=== PATIENT | female | born 1960 | race Caucasian/White ===

== ENCOUNTER 2023-07-17 11:09 | Inpatient (IN) ==
[2023-07-17 12:12] LABS: Appearance Urine Clear (Clear); Bilirubin Urine Negative (Negative); Blood Urine Negative (Negative); Color Urine Yellow; Glucose Urine UA 3+ (Negative); Ketones Urine 2+ (Negative); Leukocyte Esterase Urine Negative (Negative); Nitrite Urine Negative (Negative); Protein Urine Negative (Negative); Specific Gravity Urine 1.021 (1.000-1.030); Urobilinogen Urine Negative (Negative)
[2023-07-17 12:18] LABS: Basophils # (auto) 0.02 K/uL (0.00-0.20); Basophils % (auto) 0.3 %; Eosinophils # (auto) 0.14 K/uL (0.00-0.50); Eosinophils % (auto) 1.8 %; Hematocrit (blood only) 36.1 % (37.0-47.0); Immature Granulocytes # (auto) 0.02 K/uL (0.01-0.20); Immature Granulocytes % (auto) 0.3 %; Lymphocytes # (auto) 1.27 K/uL (1.20-3.40); Lymphocytes % (auto) 16.4 %; Mean Corpuscular Hemoglobin 30.2 pg (25.0-34.0); Mean Corpuscular Hgb Conc 33.2 g/dL (32.0-36.0); Mean Corpuscular Volume 90.7 fL (80.0-100.0); Mean Platelet Volume 10.1 fL (9.4-12.4); Monocytes # (auto) 0.36 K/uL (0.11-0.59); Monocytes % (auto) 4.6 %; Neutrophils # (auto) 5.94 K/uL (1.40-6.50); Neutrophils % (auto) 76.6 %; Platelet Count 302 K/uL (130-400); RDW Coefficient of Variation 12.2 % (11.5-14.5); Red Blood Count 3.98 M/uL (4.20-5.40); White Blood Count 7.75 K/ul (4.8-10.8)
[2023-07-17] MEDS ORDERED: SODIUM CHLORIDE 0.9% 1,000 ML IV ONE (12:22)
[2023-07-17] MEDS ORDERED: ONDANSETRON INJ 2 MG/ML 2 ML VIAL IV STA (12:22)
[2023-07-17] MEDS ORDERED: MoRPHine SULFATE 4 MG/ML 1 ML CARP\\VIAL IV STA (12:22)
[2023-07-17 12:24] LABS: Alanine Aminotransferase 24 U/L (7-52); Albumin Globulin Ratio 1.2 (0.9-2); Albumin Level 3.9 gm/dl (3.4-5.0); Alkaline Phosphatase 100 U/L (34-104); Anion Gap 7 (3-11); Aspartate Aminotransferase 16 U/L (13-39); BUN Creatinine Ratio 16.4 (10-20); Bilirubin,Total 0.5 mg/dl (0.2-1.0); Blood Urea Nitrogen 9 mg/dl (6-23); Carbon Dioxide 29 mmol/L (21-32); Chloride 103 mmol/L (98-107); Est GFR (African American) 117.3 ml/min; Est GFR (Non-African American) 101.2 ml/min; Globulin 3.3 gm/dl (2.5-4.0); Glucose 246 mg/dl (70-99(Fasting)); Potassium 3.4 mmol/L (3.5-5.1); Sodium 139 mmol/L (136-145); Total Protein 7.2 gm/dl (6.0-8.3)
--- NOTE | 2023-07-17 12:37 | Emergency Department Note ---
Impression & Plan Abdominal pain, Liver laceration, S/P cholecystectomy ED Provider Note NAME: COLIN SHIELDS AGE: 62 SEX: F : 1960 ARRIVES VIA: Walk-In INFORMANT: [Patient] ED PROVIDER(S): [Adan Alonzo MD] CHIEF COMPLAINT: Dr. Referred HISTORY OF PRESENT ILLNESS: The patient is a 62-year-old female who had laparoscopic gallbladder surgery performed at [facility] last week. She was discharged 3 days ago. The patient has had ongoing abdominal pain since discharge. She is not using anything for pain currently. She has a drain in place. The patient saw a doctor today and was referred to the ER for a workup. The patient has an appointment with a physician tomorrow to have the wound checked. She is to have the drain out sometime later this week. There has been no cough or congestion. No shortness of breath. No fever. No diarrhea or urinary complaints. She states that she would like her dressing changed as the dressing does seem soaked. PMHx/PSHx/Social Hx: See Below PHYSICAL EXAM: GENERAL: Patient is in no acute distress. HEENT: No acute trauma, normocephalic atraumatic, mucous membranes moist, no nasal congestion. NECK: No stridor, no adenopathy, no meningismus, trachea is midline. LUNGS: Clear to auscultation bilaterally, no wheeze, no rhonchi, breath sounds equal. HEART: Without murmurs gallops or rubs, regular rate and rhythm. ABDOMEN: Soft, mildly diffusely tender, no abdominal distention. There is a NELLIE drain in the right upper quadrant with a dressing surrounding the surgical site. The dressing does appear soaked with some serosanguineous fluid. The drain has serosanguineous fluid in the bulb. EXTREMITIES: No cyanosis, full range of motion of all the joints without pain or difficulty. NEUROLOGIC: Oriented x 3, no acute motor or sensory deficits, no focal weakness. SKIN: No jaundice, no diaphoresis. DIFFERENTIAL DIAGNOSIS: Abscess, hematoma, postop pain, cellulitis, UTI, among others. EMERGENCY DEPARTMENT PROCEDURES: MEDICAL DECISION MAKING: There is no leukocytosis or concerning anemia. There is a normal platelet count. Potassium is slightly low but not in need of emergent correction. No renal failure. No concerning liver enzyme elevation. No evidence for pancreatitis. Urinalysis does show some ketones consistent with dehydration, no hematuria, no infection. Abdominal and pelvis CT shows findings consistent with recent gallbladder surgery. A grade 3 liver laceration was also noted. There was some hydronephrosis on the left. The patient presents with pain in the area of her surgical site. She was not discharged on any pain medication. On workup, she was found to have a liver laceration, likely the laceration occurred during the surgical procedure as there has been no trauma since the surgery. I spoke with our general surgeon, hospitalization, observation was recommended. There is no indication for acute surgical intervention. I spoke with the patient and case management, the on-call hospitalist was consulted. Certainly, the liver laceration could be causing her more significant postsurgical pain. During the ED stay, the patient was given IV saline 1 L. She was given IV morphine and IV Zofran. She is more comfortable. Prior/Outside records/notes reviewed: [facility] surgical note from 07/12/2023 describing her operation for acute cholecystitis. Imaging/x-ray results per my interpretation: Chronic Medical/Social conditions affecting care: Care/Management discussed with: General surgery-Dr. Armas. Case management and the on-call hospitalist. Level of care consideration(s): After review of the information above and other included data: --I believe the patient requires escalation of care to admission DISPOSITION: Admit to surgical consult. Past Med/Surg History Medical History History of nephrolithiasis Genital herpes Opioid dependence on agonist therapy Anxiety MDD (major depressive disorder) DM II (diabetes mellitus, type II), controlled Surgical History (Updated 07/17/23 @ 15:33 by Adan Alonzo MD) H/O hemorrhoidectomy S/P laparoscopic cholecystectomy Family History (Updated 07/17/23 @ 15:06 by Kat Hudson PA-C) Mother Diabetes Father Diabetes Social History Smoking Status: Never smoker Preferred Language: Chinese Feels Safe at Home: Yes Allergies Allergies Allergy/AdvReac Type Severity Reaction Status Date / Time No Known Allergies Allergy Unverified 07/17/23 14:12 Home Meds Home Medications Medication Instructions Recorded Confirmed buprenorphine HCl 8 mg sublingual 8 mg sublingual TID 07/17/23 07/17/23 tablet ibuprofen 800 mg tablet 800 mg PO TID PRN Pain 07/17/23 07/17/23 insulin aspart U-100 100 unit/mL 0 unit subcut TID 07/17/23 07/17/23 (3 mL) subcutaneous pen insulin glargine 100 unit/mL (3 20 unit subcut HS 07/17/23 07/17/23 mL) subcutaneous pen tizanidine 2 mg tablet 2 mg PO TID 07/17/23 07/17/23 Results & Data (ED) Vital Signs Vital Signs - 24 hr 07/17/23 11:16 07/17/23 11:58 07/17/23 14:08 Temperature 36.7 C Temperature Source Oral Pulse Rate 91 H Pulse Rate [Apical] 87 85 Respiratory Rate 17 20 20 Respiratory Effort / Characteristics Non-Labored Spontaneous Non-Labored Non-Labored Respiratory Depth Normal Normal Normal Respiratory Pattern Regular Blood Pressure 180/80 H Blood Pressure [Right Arm] 198/94 H 182/97 H Blood Pressure Mean 113 Blood Pressure Mean [Right Arm] 128 125 Blood Pressure Position Sitting Pulse Oximetry 98 99 99 Oxygen Delivery Method Room Air Room Air Room Air Sepsis Recent Fever Within 48 Hours No Sepsis New/Unexplained Change in Mental Status N/A Sepsis Action Taken by Nursing No Action Required Home Medications Current Medication List: was personally reviewed by me Laboratory Data Attestation: I reviewed the patient's lab results. 07/17/23 11:39 07/17/23 11:39 Lab Results 07/17/23 07/17/23 Range/Units 11:39 14:07 WBC 7.75 (4.8-10.8) K/ul RBC 3.98 L (4.20-5.40) M/uL Hgb 12.0 (12.0-16.0) g/dl Hct 36.1 L (37.0-47.0) % MCV 90.7 (80.0-100.0) fL MCH 30.2 (25.0-34.0) pg MCHC 33.2 (32.0-36.0) g/dL RDW Std Deviation 41.0 (36.4-46.3) fL RDW Coeff of Luciano 12.2 (11.5-14.5) % Plt Count 302 (130-400) K/uL MPV 10.1 (9.4-12.4) fL Immature Gran % (Auto) 0.3 % Neut % (Auto) 76.6 % Lymph % (Auto) 16.4 % [place] % (Auto) 4.6 % Eos % (Auto) 1.8 % Baso % (Auto) 0.3 % Neut # (Auto) 5.94 (1.40-6.50) K/uL Lymph # (Auto) 1.27 (1.20-3.40) K/uL [place] # (Auto) 0.36 (0.11-0.59) K/uL Eos # (Auto) 0.14 (0.00-0.50) K/uL Baso # (Auto) 0.02 (0.00-0.20) K/uL Immature Gran # (Auto) 0.02 (0.01-0.20) K/uL Sodium 139 (136-145) mmol/L Potassium 3.4 L (3.5-5.1) mmol/L Chloride 103 (98-107) mmol/L Carbon Dioxide 29 (21-32) mmol/L Anion Gap 7 (3-11) BUN 9 (6-23) mg/dl Creatinine 0.55 L (0.6-1.2) mg/dl Est Cr Clr Drug Dosing Not Reportable Est GFR ( Amer) 117.3 ml/min Est GFR (Non-Af Amer) 101.2 ml/min BUN/Creatinine Ratio 16.4 (10-20) Glucose 246 H (70-99(Fasting)) mg/dl POC Glucose 218 H (70-99) mg/dl Calcium 9.0 (8.6-10.3) mg/dl Total Bilirubin 0.5 (0.2-1.0) mg/dl AST 16 (13-39) U/L ALT 24 (7-52) U/L Alkaline Phosphatase 100 (34-104) U/L Total Protein 7.2 (6.0-8.3) gm/dl Albumin 3.9 (3.4-5.0) gm/dl Globulin 3.3 (2.5-4.0) gm/dl Albumin/Globulin Ratio 1.2 (0.9-2) Lipase < 3 L (11-82) U/L Urine Color Yellow Urine Appearance Clear (Clear) Urine pH 7.0 (4.5-7.5) Ur Specific [place] 1.021 (1.000-1.030) Urine Protein Negative (Negative) Urine Glucose (UA) 3+ H (Negative) Urine Ketones 2+ H (Negative) Urine Blood Negative (Negative) Urine Nitrite Negative (Negative) Urine Bilirubin Negative (Negative) Urine Urobilinogen Negative (Negative) Ur Leukocyte Esterase Negative (Negative) Administered Medications Discontinued Medications Sodium Chloride (Nss) 1,000 mls @ 999 mls/hr IV .Q1H1M ONE Stop: 07/17/23 13:22 Last Infusion: 07/17/23 13:51 Dose: Infused Documented By: Admin: 07/17/23 12:45 Dose: 999 mls/hr Documented By: ALBERT Ioversol (Optiray 320 500ml) 92 ml IV ONCE ONE Stop: 07/17/23 12:52 Last Admin: 07/17/23 12:51 Dose: 92 ml Documented By: ROSY Morphine Sulfate (Morphine Sulfate 4 Mg/Ml 1 Ml Carp\Vial) 4 mg IV NOW STA Stop: 07/17/23 12:23 Last Admin: 07/17/23 12:44 Dose: 4 mg Documented By: ALBERT Ondansetron HCl (Ondansetron Inj 2 Mg/Ml 2 Ml Vial) 4 mg IV NOW STA Stop: 07/17/23 12:23 Last Admin: 07/17/23 12:44 Dose: 4 mg Documented By: ALBERT Imaging Data Radiologist's Impression: Abdomen/Pelvis CT 07/17/23 12:[address] WITH IV CONTRAST CT DOSE: 666.06 mGy.cm HISTORY: Acute right upper quadrant abdominal pain gb surg--increased pain TECHNIQUE: Multiaxial CT images of the abdomen and pelvis were performed following the IV administration of 92 cc of Optiray, A dose lowering technique was utilized adhering to the principles of ALARA. COMPARISON STUDY: None. FINDINGS: Coronary arterial calcifications. Clear lung bases. Small amount of pneumoperitoneum with subcutaneous emphysema of the anterior abdominal wall with additional deep tissue air within the left rectus sheath. Unremarkable spleen, and adrenal glands. 1.3 cm peripherally calcified splenic artery aneurysm. Atrophic pancreas. Mild intrahepatic and extrahepatic biliary ductal prominence. Cholecystectomy with surgical clips in the elvin hepatis. Ill-defined focus of air and fluid within the elvin hepatis measures 3.5 cm on image 101. There is trace free pelvic fluid with additional trace fluid tracking along the right pericolic gutter. There is a 5 cm linear focus of decreased attenuation within the inferior right hepatic lobe extending towards the elvin hepatis. There are a few nonobstructing calculi of the kidneys measure up to approximately 3 mm bilaterally. 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 Mild to moderate left-sided hydronephrosis with transition narrowing at the ureteropelvic junction. The urinary bladder wall thickening with partial distention. Vascular calcifications of the uterus. Small amount of free pelvic fluid. Atherosclerosis of the aorta without aneurysm. Small hiatal hernia. Moderate colonic fecal retention. Surgical drainage catheter is noted with distal tip within the left mid abdomen. Noninflamed appendix. Lai of the anterior abdominal wall. Small fat filled umbilical hernia. There is no acute fracture identified. IMPRESSION: 1. Postoperative changes compatible with recent cholecystectomy with trace pneumoperitoneum. 2. Small amount of air and fluid within the elvin hepatis is likely an expected postoperative finding. No drainable postoperative fluid collection. 3. 5 cm acute laceration (grade III injury) of the inferior right hepatic lobe with extension into the elvin hepatis. Trace adjacent hemorrhage tracks along the right pericolic gutter. 4. No bowel obstruction. 5. Moderate constipation. 6. Bilateral nephrolithiasis. 7. Left hydronephrosis with possible UPJ obstruction. ACT 112: Negative or not required by law. The above report was generated using voice recognition software. It may contain grammatical, syntax or spelling errors. Electronically signed by: Yasmany Pena M.D. 07/17/2023 1:48 PM Discharge Plan Visit Data Chief Complaint: Referred by Doctor Stated Complaint: PAIN AND BLEEDING AFTER SURGERY ED Provider: Adan Alonzo Discharge Problem: Abdominal pain, Liver laceration, S/P cholecystectomy Patient Disposition: Admitted As Inpatient Condition: Fair Forms Stand Alone Forms: [employer] Prescriptions Prescriptions: No Action tizanidine 2 mg tablet 2 mg PO TID ibuprofen 800 mg tablet 800 mg PO TID PRN (Reason: Pain) buprenorphine HCl 8 mg tablet, sublingual 8 mg SUBLINGUAL TID insulin aspart U-100 100 unit/mL (3 mL) insulin pen 0 unit SUBCUT TID Rx Instructions: Inject 8 units under the skin in the morning, 8 units at lunch and 10 units at supper insulin glargine 100 unit/mL (3 mL) insulin pen 20 unit SUBCUT HS Referrals Referrals: PCP,NO [Physician] - Discharge Problem: Abdominal pain Qualifiers: Abdominal location: generalized Qualified Code(s): R10.84 - Generalized abdominal pain Liver laceration Qualifiers: Encounter type: initial encounter Qualified Code(s): S36.113A - Laceration of liver, unspecified degree, initial encounter
[2023-07-17] MEDS ORDERED: OPTIRAY 320 500ml IV ONE (12:51)
[2023-07-17 12:58] LABS: Lipase < 3 U/L (11-82)
--- NOTE | 2023-07-17 13:51 | CT Scan Report ---
ABDOMEN AND PELVIS CT WITH IV CONTRAST CT DOSE: 666.06 mGy.cm HISTORY: Acute right upper quadrant abdominal pain gb surg--increased pain TECHNIQUE: Multiaxial CT images of the abdomen and pelvis were performed following the IV administrat ion of 92 cc of Optiray, A dose lowering technique was utilized adhering to the principles of ALARA. COMPARISON STUDY: None. FINDINGS: Coronary arterial calcifications. Clear lung bases. Small amount of pneumoperitoneum with subcutaneou s emphysema of the anterior abdominal wall with additional deep tissue air within the left rectus she ath. Unremarkable spleen, and adrenal glands. 1.3 cm peripherally calcified splenic artery aneurysm. Atrop hic pancreas. Mild intrahepatic and extrahepatic biliary ductal prominence. Cholecystectomy with surg ical clips in the elvin hepatis. Ill-defined focus of air and fluid within the elvin hepatis measures 3.5 cm on image 101. There is trace free pelvic fluid with additional trace fluid tracking along the right pericolic gutter. There is a 5 cm linear focus of decreased attenuation within the inferior ri ght hepatic lobe extending towards the elvin hepatis. There are a few nonobstructing calculi of the kidneys measure up to approximately 3 mm bilaterally. 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 Mild to moderate left-sided hydronephrosis with transition narrowing at the ureteropelvic j unction. The urinary bladder wall thickening with partial distention. Vascular calcifications of the uterus. Small amount of free pelvic fluid. Atherosclerosis of the aorta without aneurysm. Small hiatal hernia. Moderate colonic fecal retention. Surgical drainage catheter is noted with dista l tip within the left mid abdomen. Noninflamed appendix. Lai of the anterior abdominal wall. Smal l fat filled umbilical hernia. There is no acute fracture identified. IMPRESSION: 1. Postoperative changes compatible with recent cholecystectomy with trace pneumoperitoneum. 2. Small amount of air and fluid within the elvin hepatis is likely an expected postoperative finding . No drainable postoperative fluid collection. 3. 5 cm acute laceration (grade III injury) of the inferior right hepatic lobe with extension into th e elvin hepatis. Trace adjacent hemorrhage tracks along the right pericolic gutter. 4. No bowel obstruction. 5. Moderate constipation. 6. Bilateral nephrolithiasis. 7. Left hydronephrosis with possible UPJ obstruction. ACT 112: Negative or not required by law. The above report was generated using voice recognition software. It may contain grammatical, syntax o r spelling errors. Electronically signed by: Yasmany Pena M.D. 07/17/2023 1:48 PM
--- NOTE | 2023-07-17 15:20 | History & Physical Report ---
Date of Service July 17, 2023 Assessment & Plan (1) Abdominal pain: (2) Liver laceration: Plan: - Admit to med surg tele - General surgery consultation - S/p lap cholecystectomy on 07/12/23, she was treated with IV Zosyn during preoperative timing, likely liver laceration sustained during surgery, no falls, trauma or other injury since surgical procedure - CT abd/pelvis reviewed personally -- findings as per radiology below Postoperative changes compatible with recent cholecystectomy with trace pneumoperitoneum. Small amount of air and fluid within the elvin hepatis is likely an expected postoperative finding. No drainable postoperative fluid collection. 5 cm acute laceration (grade III injury) of the inferior right hepatic lobe with extension into the elvin hepatis. Trace adjacent hemorrhage tracks along the right pericolic gutter. No bowel obstruction. Moderate constipation. Bilateral nephrolithiasis. Left hydronephrosis with possible UPJ obstruction. - Per discussion, she is ok to stay here in the hospital per gen surg - No acute intervention - Hgb is stable at 12, monitor with am labs - Pain control with medication, hydrate with small amount of fluids - Bowel regimen for moderate constipation seen on CT abd/pelvis - Left hydronephrosis with possible UPJ obstruction is noted within the body of report to be a narrowing of the UPJ, no obstructing kidney stone, UA is clear, no white count, afebrile (3) Hypokalemia: Plan: -Potassium is slightly low at 3.4, replace with p.o. 20 meq (4) Opioid dependence on agonist therapy: Plan: - Patient is on buprenorphine 8 mg TID - Will need to confirm with pharmacy to continue here (5) DM II (diabetes mellitus, type II), controlled: Plan: -ISS with Accu-Cheks [facility], uses Lantus 20 units at bedtime, insulin aspart 8 U with breakfast, lunch and 10 units with dinner -There is no A1c in [facility] outpatient chart available for review, will check with a.m. labs (6) MDD (major depressive disorder): (7) Anxiety: Plan: - Continue Effexor 112.5 mg, allow clonazepam 0.5 mg TID - Follow with a counselor every other week, does not have a psychiatrist DVT PPx: teds, scds Lines: 2 PIV FEN/GI: Allow DM diet CODE: Full code Dispo: From home, likely to remain in the hospital x 1-2 days. History of Present Illness Chief Complaint: Abdominal Pain Primary Care Provider: Jacquelyn Mckinney MD This is a 62-year-old female with PMHx of opioid dependence on Subutex, anxiety/depression on clonazepam, DM type II who presented to [facility] on 07/11 for 2 days of upper abdominal pain. She was found to have acute cholecystitis. Secondary to this she was transferred to [facility] and she underwent laparoscopic cholecystectomy on 07/12/[address] Medrano. Patient tolerated the procedure well. She was discharged from facility on 07/14/2023. Since discharge she has had increasing abdominal pain and was referred to our hospital by PCP. She was scheduled to have her NELLIE drain out next week. Here on CT abdomen acute imaging finds a 5 cm acute liver laceration with extension into the elvin hepatis. Patient reports that she is very unsatisfied with the care she received at the previous hospital in regards to being sent out of the hospital 2 days after surgery and having worsening pain. She lives at home by herself and has had difficulty with performing basic things. She has a NELLIE drain out of the RLQ whi ch she has been emptying herself, and maintaining without difficulty. She states that there is serosanguineous fluid, minimal bloody outs. She is moving her bowels, last was 2 days ago, uses a laxative at home regularly. Patient has been tolerating p.o. intake and has been urinating without any issues. She denies any fevers, chills or sweats. Social Hx: Patient has been on Subutex for approximately 5 years, prior to that she was on chronic pain medication for pain associated with a fall she sustained backwards down a set of stairs and injured her shoulder. Patient denies any IV drug abu se, smoking, alcohol use or marijuana use. She has had 6 children, and one of her daughters due to suicide about 5 years ago. Allergies Allergy/AdvReac Type Severity Reaction Status Date / Time No Known Allergies Allergy Unverified 07/17/23 14:12 Home Medications Medication Instructions Recorded Confirmed Type buprenorphine HCl 8 mg sublingual 8 mg sublingual TID 07/17/23 07/17/23 History tablet clonazepam 0.5 mg tablet 0.5 mg PO TID PRN Anxiety 07/17/23 07/17/23 History ibuprofen 800 mg tablet 800 mg PO TID PRN Pain 07/17/23 07/17/23 History insulin aspart U-100 100 unit/mL 8 unit subcut TID 07/17/23 07/17/23 History (3 mL) subcutaneous pen insulin glargine 100 unit/mL (3 20 unit subcut HS 07/17/23 07/17/23 History mL) subcutaneous pen tizanidine 2 mg tablet 2 mg PO TID 07/17/23 07/17/23 History Past Med/Surg History Medical History History of nephrolithiasis Genital herpes Opioid dependence on agonist therapy Anxiety MDD (major depressive disorder) DM II (diabetes mellitus, type II), controlled Surgical History H/O hemorrhoidectomy S/P laparoscopic cholecystectomy Family History Mother Diabetes Father Diabetes Social History Smoking Status: Never smoker Preferred Language: Comoran Feels Safe at Home: Yes Review of Systems Review of Systems: Constitutional: No fever, sweats or chills Eyes: No diplopia, no worsening or blurred vision ENT: normal hearing, no trouble swallowing Respiratory: No cough, sputum, dyspnea at rest or on exertion Cardiovascular: No chest pain, tightness or palpitations Abdomen: + Pain as per HPI, no nausea, vomiting, diarrhea , + hx of constipation and uses laxative Musculoskeletal: No joint pain, calf pain, swelling Neurologic: No weakness, numbness/tingling, or balance problems Psychiatric: No anxiety or depression Skin: No rash or itch Physical Exam Physical Exam: General: awake, alert, no apparent distress, anxious at times Head: Normocephalic, atraumatic ENT: PERRL, EOMI, no pharyngeal exudate, mucous membranes moist Chest: Clear to auscultation, on room air, no adventitious breath sounds Cardiac: Regular rate and rhythm, no murmur, no JVD, normal peripheral pulses, good capillary refill Abdominal: NABS x 4 quadrants, soft, + NELLIE drain in RLQ with serosanguineous outs, laparoscopic incisions healing well, no surrounding erythema, nondistended, nontender to palpation, no rebound or guarding Extremities: Normal inspection, no peripheral edema or erythema, calfs nontender to palpation Psych: Anxious mood and tearful affect at times Neuro: AAO x 3, strength intact bilaterally and rated 5/5, no motor deficits, speech is clear, no peripheral sensory deficits Results & Data Results & Data Vital Signs (Past 12 Hours) Vital Signs Temp Pulse Pulse Resp BP BP Pulse Ox 07/17/23 14:08 85 20 182/97 H 99 07/17/23 11:58 87 20 198/94 H 99 07/17/23 11:16 36.7 C 91 H 17 180/80 H 98 O2 Del Method 07/17/23 14:08 Room Air 07/17/23 11:58 Room Air 07/17/23 11:16 Room Air Laboratory Results 07/17/23 07/17/23 14:07 11:39 WBC 7.75 RBC 3.98 L Hgb 12.0 Hct 36.1 L MCV 90.7 MCH 30.2 MCHC 33.2 RDW Std Deviation 41.0 RDW Coeff of Luciano 12.2 Plt Count 302 MPV 10.1 Immature Gran % (Auto) 0.3 Neut % (Auto) 76.6 Lymph % (Auto) 16.4 [place] % (Auto) 4.6 Eos % (Auto) 1.8 Baso % (Auto) 0.3 Neut # (Auto) 5.94 Lymph # (Auto) 1.27 [place] # (Auto) 0.36 Eos # (Auto) 0.14 Baso # (Auto) 0.02 Immature Gran # (Auto) 0.02 Sodium 139 Potassium 3.4 L Chloride 103 Carbon Dioxide 29 Anion Gap 7 BUN 9 Creatinine 0.55 L Est Cr Clr Drug Dosing Not Reportable Est GFR ( Amer) 117.3 Est GFR (Non-Af Amer) 101.2 BUN/Creatinine Ratio 16.4 Glucose 246 H POC Glucose 218 H Calcium 9.0 Total Bilirubin 0.5 AST 16 ALT 24 Alkaline Phosphatase 100 Total Protein 7.2 Albumin 3.9 Globulin 3.3 Albumin/Globulin Ratio 1.2 Lipase < 3 L Urine Color Yellow Urine Appearance Clear Urine pH 7.0 Ur Specific [place] 1.021 Urine Protein Negative Urine Glucose (UA) 3+ H Urine Ketones 2+ H Urine Blood Negative Urine Nitrite Negative Urine Bilirubin Negative Urine Urobilinogen Negative Ur Leukocyte Esterase Negative Diagnostic Findings Abdomen/Pelvis CT 07/17/23 12:[address] WITH IV CONTRAST CT DOSE: 666.06 mGy.cm HISTORY: Acute right upper quadrant abdominal pain gb surg--increased pain TECHNIQUE: Multiaxial CT images of the abdomen and pelvis were performed following the IV administration of 92 cc of Optiray, A dose lowering technique was utilized adhering to the principles of ALARA. COMPARISON STUDY: None. FINDINGS: Coronary arterial calcifications. Clear lung bases. Small amount of pneumoperitoneum with subcutaneous emphysema of the anterior abdominal wall with additional deep tissue air within the left rectus sheath. Unremarkable spleen, and adrenal glands. 1.3 cm peripherally calcified splenic artery aneurysm. Atrophic pancreas. Mild intrahepatic and extrahepatic biliary ductal prominence. Cholecystectomy with surgical clips in the elvin hepatis. Ill-defined focus of air and fluid within the elvin hepatis measures 3.5 cm on image 101. There is trace free pelvic fluid with additional trace fluid tracking along the right pericolic gutter. There is a 5 cm linear focus of decreased attenuation within the inferior right hepatic lobe extending towards the elvin hepatis. There are a few nonobstructing calculi of the kidneys measure up to approximately 3 mm bilaterally. 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 Mild to moderate left-sided hydronephrosis with transition narrowing at the ureteropelvic junction. The urinary bladder wall thickening with partial distention. Vascular calcifications of the uterus. Small amount of free pelvic fluid. Atherosclerosis of the aorta without aneurysm. Small hiatal hernia. Moderate colonic fecal retention. Surgical drainage catheter is noted with distal tip within the left mid abdomen. Noninflamed appendix. Lai of the anterior abdominal wall. Small fat filled umbilical hernia. There is no acute fracture identified. IMPRESSION: 1. Postoperative changes compatible with recent cholecystectomy with trace pneumoperitoneum. 2. Small amount of air and fluid within the elvin hepatis is likely an expected postoperative finding. No drainable postoperative fluid collection. 3. 5 cm acute laceration (grade III injury) of the inferior right hepatic lobe with extension into the elvin hepatis. Trace adjacent hemorrhage tracks along the right pericolic gutter. 4. No bowel obstruction. 5. Moderate constipation. 6. Bilateral nephrolithiasis. 7. Left hydronephrosis with possible UPJ obstruction. ACT 112: Negative or not required by law. The above report was generated using voice recognition software. It may contain grammatical, syntax or spelling errors. Electronically signed by: Yasmany Pena M.D. 07/17/2023 1:48 PM Code Status & VTE Plan Code Status Full code Supervising Physician Co-Signing Physician Notes seen and examined along side Physician assistant baseball coach reviewed findings Patient agreeable for admission no acute intervention as per gen surgery. reviewed ct abdomen : no bowel perforation will continue to moniter
[2023-07-17] MEDS ORDERED: HYDROmorphone INJ 0.5 MG/0.5 ML SYR IV STA (15:36)
[2023-07-17] MEDS ORDERED: bisacodyL 5 MG TABEC PO ONE (15:39)
[2023-07-17] MEDS ORDERED: POLYETHYLENE (MIRALAX) 17 GM PACK PO ONE (15:43)
[2023-07-17] MEDS ORDERED: POTASSIUM CHLORIDE CRTAB 20 MEQ TABCR PO STA (16:08)
--- NOTE | 2023-07-17 16:08 | Surgery Consultation ---
Date of Consultation July 17, 2023 Assessment & Plan (1) S/P cholecystectomy: (2) Liver laceration: Plan 62-year-old woman 5 days status post laparoscopic cholecystectomy for acute cholecystitis at [facility] presents with a liver laceration, grade 3. Hemoglobin/hematocrit are low normal. This is most likely from the surgery itself. She will be admitted to the hospitalist service placed on IV fluids and we will monitor her labs. If her labs remain stable, she may be discharged tomorrow to follow-up with her surgeon as an outpatient. If her pain worsens or persists despite pain medication, she may require HIDA scan for rule out of leak. Will continue to follow while she is in the hospital. History of Present Illness Reason for Consultation: Liver laceration status post cholecystectomy Requesting Physician: Adan Alonzo MD Attending Physician: Adan Alonzo MD History of Present Illness 62-year-old woman presents to the emergency department with upper abdominal pain. She underwent laparoscopic cholecystectomy for acute cholecystitis at [facility] 5 days ago. She has been having significant pain at home and came to the hospital because it worsened. She denies nausea or vomiting. She has been eating well. She denies fevers or chills. She has a drain in place. Allergies Allergy/AdvReac Type Severity Reaction Status Date / Time No Known Allergies Allergy Unverified 07/17/23 14:12 Home Medications Medication Instructions Recorded Confirmed Type buprenorphine HCl 8 mg sublingual 8 mg sublingual TID 07/17/23 07/17/23 History tablet clonazepam 0.5 mg tablet 0.5 mg PO TID PRN Anxiety 07/17/23 07/17/23 History ibuprofen 800 mg tablet 800 mg PO TID PRN Pain 07/17/23 07/17/23 History insulin aspart U-100 100 unit/mL 8 unit subcut TID 07/17/23 07/17/23 History (3 mL) subcutaneous pen insulin glargine 100 unit/mL (3 20 unit subcut HS 07/17/23 07/17/23 History mL) subcutaneous pen tizanidine 2 mg tablet 2 mg PO TID 07/17/23 07/17/23 History Patient History Medical History History of nephrolithiasis Genital herpes Opioid dependence on agonist therapy Anxiety MDD (major depressive disorder) DM II (diabetes mellitus, type II), controlled Surgical History H/O hemorrhoidectomy S/P laparoscopic cholecystectomy Family History Mother Diabetes Father Diabetes Social History Smoking Status: Never smoker Preferred Language: Colombian Feels Safe at Home: Yes Review of Systems Review of Systems: All systems reviewed & are unremarkable except as noted in HPI & below Physical Exam Constitutional: WD/WN, vitals as above Eyes: PERRL, conjunctivae normal, anicteric sclerae Neck: trachea midline, no thyromegaly Respiratory: normal respiratory effort; no respiratory distress and no labored breathing Cardiovascular: Rate/Rhythm: regular rate and regular rhythm Gastrointestinal (Abdomen): Inspection/Auscultation: abdomen normal to inspection; abdomen not distended Percussion/Palpation: + abdomen tender (Diffuse upper abdomen) and abdomen soft; no guarding and abdomen not rigid Skin: no rashes, warm and dry Psychiatric: A+Ox3, euthymic affect Results & Data Vital Signs (Past 12 Hours) Vital Signs Temp Pulse Pulse Resp BP BP Pulse Ox 07/17/23 14:08 85 20 182/97 H 99 07/17/23 11:58 87 20 198/94 H 99 07/17/23 11:16 36.7 C 91 H 17 180/80 H 98 O2 Del Method 07/17/23 14:08 Room Air 07/17/23 11:58 Room Air 07/17/23 11:16 Room Air Laboratory Results 07/17/23 07/17/23 Range/Units 14:07 11:39 WBC 7.75 (4.8-10.8) K/ul RBC 3.98 L (4.20-5.40) M/uL Hgb 12.0 (12.0-16.0) g/dl Hct 36.1 L (37.0-47.0) % MCV 90.7 (80.0-100.0) fL MCH 30.2 (25.0-34.0) pg MCHC 33.2 (32.0-36.0) g/dL RDW Std Deviation 41.0 (36.4-46.3) fL RDW Coeff of Luciano 12.2 (11.5-14.5) % Plt Count 302 (130-400) K/uL MPV 10.1 (9.4-12.4) fL Immature Gran % (Auto) 0.3 % Neut % (Auto) 76.6 % Lymph % (Auto) 16.4 % [place] % (Auto) 4.6 % Eos % (Auto) 1.8 % Baso % (Auto) 0.3 % Neut # (Auto) 5.94 (1.40-6.50) K/uL Lymph # (Auto) 1.27 (1.20-3.40) K/uL [place] # (Auto) 0.36 (0.11-0.59) K/uL Eos # (Auto) 0.14 (0.00-0.50) K/uL Baso # (Auto) 0.02 (0.00-0.20) K/uL Immature Gran # (Auto) 0.02 (0.01-0.20) K/uL Sodium 139 (136-145) mmol/L Potassium 3.4 L (3.5-5.1) mmol/L Chloride 103 (98-107) mmol/L Carbon Dioxide 29 (21-32) mmol/L Anion Gap 7 (3-11) BUN 9 (6-23) mg/dl Creatinine 0.55 L (0.6-1.2) mg/dl Est Cr Clr Drug Dosing Not Reportable Est GFR ( Amer) 117.3 ml/min Est GFR (Non-Af Amer) 101.2 ml/min BUN/Creatinine Ratio 16.4 (10-20) Glucose 246 H (70-99(Fasting)) mg/dl POC Glucose 218 H (70-99) mg/dl Calcium 9.0 (8.6-10.3) mg/dl Total Bilirubin 0.5 (0.2-1.0) mg/dl AST 16 (13-39) U/L ALT 24 (7-52) U/L Alkaline Phosphatase 100 (34-104) U/L Total Protein 7.2 (6.0-8.3) gm/dl Albumin 3.9 (3.4-5.0) gm/dl Globulin 3.3 (2.5-4.0) gm/dl Albumin/Globulin Ratio 1.2 (0.9-2) Lipase < 3 L (11-82) U/L Urine Color Yellow Urine Appearance Clear (Clear) Urine pH 7.0 (4.5-7.5) Ur Specific [place] 1.021 (1.000-1.030) Urine Protein Negative (Negative) Urine Glucose (UA) 3+ H (Negative) Urine Ketones 2+ H (Negative) Urine Blood Negative (Negative) Urine Nitrite Negative (Negative) Urine Bilirubin Negative (Negative) Urine Urobilinogen Negative (Negative) Ur Leukocyte Esterase Negative (Negative) Diagnostic Findings ABDOMEN AND PELVIS CT WITH IV CONTRAST CT DOSE: 666.06 mGy.cm HISTORY: Acute right upper quadrant abdominal pain gb surg--increased pain TECHNIQUE: Multiaxial CT images of the abdomen and pelvis were performed following the IV administration of 92 cc of Optiray, A dose lowering technique was utilized adhering to the principles of ALARA. COMPARISON STUDY: None. FINDINGS: Coronary arterial calcifications. Clear lung bases. Small amount of pneumoperitoneum with subcutaneous emphysema of the anterior abdominal wall with additional deep tissue air within the left rectus sheath. Unremarkable spleen, and adrenal glands. 1.3 cm peripherally calcified splenic artery aneurysm. Atrophic pancreas. Mild intrahepatic and extrahepatic biliary ductal prominence. Cholecystectomy with surgical clips in the elvin hepatis. Ill-defined focus of air and fluid within the elvin hepatis measures 3.5 cm on image 101. There is trace free pelvic fluid with additional trace fluid tracking along the right pericolic gutter. There is a 5 cm linear focus of decreased attenuation within the inferior right hepatic lobe extending towards the elvin hepatis. There are a few nonobstructing calculi of the kidneys measure up to approximately 3 mm bilaterally. 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 Mild to moderate left-sided hydronephrosis with transition narrowing at the ureteropelvic junction. The urinary bladder wall thickening with partial distention. Vascular calcifications of the uterus. Small amount of free pelvic fluid. Atherosclerosis of the aorta without aneurysm. Small hiatal hernia. Moderate colonic fecal retention. Surgical drainage catheter is noted with distal tip within the left mid abdomen. Noninflamed appendix. [place] of the anterior abdominal wall. Small fat filled umbilical hernia. There is no acute fracture identified. IMPRESSION: 1. Postoperative changes compatible with recent cholecystectomy with trace pneumoperitoneum. 2. Small amount of air and fluid within the elvin hepatis is likely an expected postoperative finding. No drainable postoperative fluid collection. 3. 5 cm acute laceration (grade III injury) of the inferior right hepatic lobe with extension into the elvin hepatis. Trace adjacent hemorrhage tracks along the right pericolic gutter. 4. No bowel obstruction. 5. Moderate constipation. 6. Bilateral nephrolithiasis. 7. Left hydronephrosis with possible UPJ obstruction. ACT 112: Negative or not required by law. The above report was generated using voice recognition software. It may contain grammatical, syntax or spelling errors. Electronically signed by: Yasmany Pena M.D. 07/17/2023 1:48 PM (2) Liver laceration Encounter type: initial encounter Qualified Code(s): S36.113A - Laceration of liver, unspecified degree, initial encounter
[2023-07-17] MEDS ORDERED: SODIUM CHLORIDE 0.9% 1,000 ML IV SCH (17:39)
[2023-07-17] MEDS ORDERED: GLUCOSE 40% GEL 15 GM TUBE PO PRN (17:39)
[2023-07-17] MEDS ORDERED: GLUCOSE 10 TAB/TUBE PO PRN (17:39)
[2023-07-17] MEDS ORDERED: CARBOHYDRATES FOR HYPOGLYCEMIA PO PRN (17:39)
[2023-07-17] MEDS ORDERED: ONDANSETRON INJ 2 MG/ML 2 ML VIAL IV PRN (17:39)
[2023-07-17] MEDS ORDERED: DEXTROSE 50% 50 ML SYRINGE IV PRN (17:39)
[2023-07-17] MEDS ORDERED: GLUCAGON FOR INJ 1 MG VIAL SQ PRN (17:39)
[2023-07-17] MEDS: clonazePAM 0.5 MG TAB PO PRN ×2 (17:51→23:14)
[2023-07-17] MEDS: INSULIN ASPART PER UNIT CHARGE SC SCH ×2 (18:19→21:08)
[2023-07-17] MEDS: LANTUS PER UNIT CHARGE SQ SCH (21:08)
[2023-07-17] MEDS: tiZANidine HCL 4 MG TABLET PO SCH (21:09)
[2023-07-17] MEDS: buprenorphine HCL 8 MG SUBL SL SCH (21:09)
[2023-07-17] MEDS: ACETAMINOPHEN 325 MG TAB PO PRN (21:49)
[2023-07-17] MEDS: HYDROmorphone INJ 0.5 MG/0.5 ML SYR IV PRN (21:49)
[2023-07-17] MEDS ORDERED: KETOROLAC TROMETHAMINE 15 MG/ML VIAL IV ONE (22:53)
[2023-07-18] MEDS: HYDROmorphone INJ 0.5 MG/0.5 ML SYR IV PRN ×3 (02:11→21:11)
--- OUTSIDE RECORDS SUMMARY | 2023-07-18 02:27 | External Medical Summary | Summary of Care ---
Author Name Unknown Organization [facility] Address [address] [place] [address] Phone [phone] Care Team Providers Care Oncology Pharmacist Name Role Phone Jacquelyn Mckinney MD Primary Care Provider [phone] Reason for Visit * Auth/Cert Specialty Diagnoses / Procedures Referred By Nicole varela Referred To Contact Diagnoses Acute cholecystitis acute cholecystitis Referral ID Status Reason Start Date Expiration Date Visits Re quested Visits Authorized [id number] Encounter Details Date Type Department Care Team (Latest Contact Info) Description 07/11/2023 6:59 PM EST - 07/14/2023 11:10 AM EST Hospital Encounter ACU [facility], Acute Care Unit, [facility] 1st Floor [address] [place] [address] Abdullahi Fontaine, DO [address] [place] [address] Sarah Shabazz MD [address], [place] [id number] Pt Handout (on AVS) Discharge Disposition: Home with Services Allergies No known active allergiesdocumented as of this encounter (statuses as of 07/14/2023) Medications Medication Sig Dispensed Refills Start Date End Date Status INSULIN SYRINGE 1CC MISCIndications:DM type 1, not at goal (HCC) for daily insulin injections 1 box 5 01/16/2004 Active FREESTYLE TEST STRIPS STRPIndications:DM type 2, goal A1c below 7 bs check tid 50 5 04/01/2004 Active LANCET DEVICE MISCIndications:DM type 1, not at goal (HCC) BS checks TID 1 box 3 04/26/2004 Active Insulin Aspart 100 UNIT/ML Injection Solution (NovoLOG) Inject 10 Units under the skin 2 times a day in the morning and at noon. 0 Active Melatonin 10 MG Oral Capsule Take 1 Capsule by mouth at bedtime. 0 Active clonazePAM 0.5 MG Oral Tablet (KlonoPIN) Take 1 Tablet by mouth in the morning and 1 Tablet at noon and 1 Tablet before bedtime. 0 Active Buprenorphine HCl 8 MG Sublingual Tablet Sublingual (Subutex) Place 1 Tablet under the tongue in the morning. 2 1/2 tablet daily . 0 Active Insulin Aspart 100 UNIT/ML Injection Solution (NovoLOG) Inject 10 Units under the skin daily with dinner. 0 Active Venlafaxine HCl ER 75 MG Oral Capsule Extended Release 24 Hour (Effexor XR) Take by mouth 112.5 mg in the morning. 0 Active Insulin Glargine 100 UNIT/ML Subcutaneous Solution (Lantus) Inject 20 Units under the skin at bedtime. 0 07/14/2023 Active tiZANidine HCl 2 MG Oral Tablet (Zanaflex) Take 1 Tablet by mouth in the morning and 1 Tablet at noon and 1 Tablet before bedtime. Do all this for 5 days. 15 Tablet 0 07/14/2023 4 Active Roller Walker Use as directed 1 Each 0 07/14/2023 Active Insulin Glargine 100 UNIT/ML Subcutaneous Solution (Lantus) Inject under the skin 22 Units before bedtime. 1 Each 12 04/19/2022 4 Discontinue d(Refill) documented as of this encounter (statuses as of 07/14/2023) Active Problems Problem Noted Date Diagnosed Date Poorly controlled diabetes mellitus 04/19/2022 Diabetic ketoacidosis withou t coma associated with type 2 diabetes mellitus 04/17/2022 Leukocytosis 04/17/2022 UTI (urinary tract infection) 04/17/2022 Acute confusion 04/17/2022 CHOLELITHIASIS NOS 02/16/2004 Type 2 diabetes mellitus wit h hemoglobin A1c goal of less than 7.0% 02/04/2002 Overview: ICD-10 update of inactive term CERVICAL DISC DISPLACMNT 01/04/2002 Major depressive disorder 01/29/2001 Overview: ICD-10 update of inactive term INITIATE CONTRACEPT NEC 01/29/2001 Vaginitis 01/29/2001 Genital herpes Overview: ICD-10 update of inactive term Hemorrhoids documented as of this encounter (statuses as of 07/14/2023) Resolved Problems Problem Noted Date Diagnosed Date Resolved Date Acute cholecystitis 07/11/2023 07/14/19 24 Chest pain 04/17/2022 04/19/2022 Abdominal pain 04/17/2022 04/19/2022 documented as of this encounter (statuses as of 07/14/2023) Social History Tobacco Use Types Packs/Day Years Used Date Smoking Tobacco: Never Smokeless Tobacco: Never Tobacco Cessation:Counseling Given: Not Answered Alcohol Use Standard Drinks/Week Comments Never 0 (1 standard drink = 0.6 oz pur e alcohol) Sex and Gender Information Value Date Recorded Sex Assigned at Not on file Gender Identity Not on file Sexual Orientation Not on file Job Start Date Occupation Industry Not on file Not on file Not on file documented as of this encounter Last Filed Vital Signs Vital Sign Reading Time Taken Comments Blood Pressure 129/61 07/14/2023 8:00 AM EST Pulse 62 07/14/2023 8:00 AM EST Temperature 35.7 C (96.3 F) 07/14/2023 8:00 AM ES T Respiratory Rate 18 07/14/2023 8:00 AM EST Oxygen Saturation 92% 07/14/2023 8:00 AM EST Inhaled Oxygen Concentration - - Weight 64.5 kg (142 lb 3.2 oz) 07/11/2023 11:39 PM EST Height 167.6 cm (5' 5.98") 07/11/2023 11:[address] Body Mass Index 22.96 07/11/2023 11:39 PM EST documented in this encounter Functional Status Functional Status Response Date of Assess ment Are you deaf or do you have serious difficulty hearing? No 07/11/2023 Are you blind or do you have serious difficulty seeing, even when wearing glasses? No 07/11/2023 Do you have serious difficul ty walking or climbing stairs? (5 years old or older) Yes-last few days because of being ill 07/11/2023 Do you have difficulty dress ing or bathing? (5 years old or older) No 07/11/2023 Because of a physical, menta l, or emotional condition, do you have difficulty doing errands alone such as visiting a doctor s office or shopping? (15 years old or older) No 07/11/2023 Cognitive Status Response Date of Assessm ent Because of a physical, menta l, or emotional condition, do you have serious difficulty concentrating, remembering, or making decisions? (5 years old or older) No 07/11/2023 documented as of this encounter Discharge Summaries * Sarah Shabazz MD - 07/14/2023 11:10 AM EST Images from the original note were not included. [place] [address] [facility] [id number] Admission Date: 07/11/2023 Discharge Date: 07/14/2023 RECOMMENDED TO DO FOR NEXT PROVIDER(S): Follow up with primary care doctor for post hospital visit Follow-up with surgery and office for postop office visit REASON(S) FOR MEDICATION CHANGE(S): DISPOSITION ON DISCHARGE: Home - Self Care Active Hospital Problems Diagnosis Poorly controlled diabetes mellitus (HCC) Type 2 diabetes mellitus with hemoglobin A1c goal of less than 7.0% (HCC) Major depressive disorder Resolved Hospital Problems Diagnosis Date Resolved *Principal Diagnosis - Acute cholecystitis 07/14/2023 ADMISSION HISTORY & PHYSICAL EXAM (focused): "Patient is a 62 year old female with history of opioid dependence on subutex, anxiety/depression on clonazepam, type II DM who presented to the [facility] for 2 days of upper abdominalpain, mostly right-sided that felt like a burning sensation. She said she also had nonstop nausea and vomiting up until the time of her presentation. She does not report any measured fevers but has had chills. No diarrhea, but reports constipation. Patient has been eating less than usual due to theabdominal discomfort. Patient was initially very paranoid and somewhat aggressive upon arrival to the [facility] surge unit. It took numerous discussions to get her to calm down and allow appropriate care. She eventually was agreeable and cooperative. " HOSPITAL COURSE (focused): Patient was hospitalized for abdominal pain and found to have acute cholecystitis and underwent laparoscopic cholecystectomy without complications. Pain was controlled and hemoglobin remained stable.Patient cleared from medical and surgical standpoint for discharge to home today. Operations & Procedures: Laparoscopic cholecystectomy Complications: none significant Significant Lab and Imaging Results: As mentioned above Results Pending at Discharge: Lab Results Pending at Discharge: None MEDICATION UPDATES AT DISCHARGE START taking these medications INSTRUCTIONS Lela Westfall [facility] [place] as directed tiZANidine 2 MG Tablet Commonly known as: Zanaflex Take 1 Tablet by mouth in the morning and 1 Tablet at noon and 1 Tablet before bedtime. Do all thisfor 5 days. CONTINUE taking these medications INSTRUCTIONS buprenorphine HCl 8 MG Sublingual tablet Commonly known as: Subutex Notes to patient: Pain Place 1 Tablet under the tongue in the morning. 2 1/2 tablet daily . clonazePAM 0.5 MG Tablet Commonly known as: KlonoPIN Notes to patient: Anxiety Take 1 Tablet by mouth in the morning and 1 Tablet at noon and 1 Tablet before bedtime. FreeStyle Test Strp Generic drug: Glucose Blood Notes to patient: Diabetes equipment bs check tid * insulin aspart 100 UNIT/ML injection Commonly known as: NovoLOG Notes to patient: Diabetes Inject 10 Units under the skin 2 times a day in the morning and at noon. * insulin aspart 100 UNIT/ML injection Commonly known as: NovoLOG Notes to patient: Diabetes Inject 10 Units under the skin daily with dinner. Insulin Glargine 100 UNIT/ML injection Commonly known as: Lantus Inject 20 Units under the skin at bedtime. INSULIN SYRINGE 1CC MISC Notes to patient: Diabetes equipment for daily insulin injections Lancet Device Misc Notes to patient: Diabetes equipment BS checks TID Melatonin 10 MG Capsule Notes to patient: Sleep aid Take 1 Capsule by mouth at bedtime. venlafaxine XR 75 MG Cp24 Commonly known as: Effexor XR Notes to patient: Depression Take by mouth 112.5 mg in the morning. * This list has 2 medication(s) that are the same as other medications prescribed for you. Read thedirections carefully, and ask your doctor or other care provider to review them with you. SCHEDULED FOLLOW-UP: Future Appointments Appt Date/Time Provider Department 07/21/2023 9:00 AM Aniket Medrano MD General Surgery, [facility] Other Information Indwelling Devices: LINES ALL Duration Drain Abad Right;Upper Abdomen 1 day Vital Signs (last recorded): Most Recent Systolic BP: 129 mmHg (07/14/23 08) Most Recent Diastolic BP: 61 mmHg (07/14/23799) Pulse: 62 (07/14/23799) Resp: 18 (07/14/23799) Most Recent Temperature: 35.72 C (07/14/23799) Weight: 64.5 kg (142 lb 3.2 oz) (07/11/23 2339) SpO2: 92 % (07/14/23799) Allergies: Patient has no known allergies. Activity: as tolerated Diet: age appropriate diet Code status (this admission): Full Code Discussion of adv directives occurred with - adult: Patient Does patient have living will: No Does patient have health care power of marine extension agent: No Condition on Discharge: stable Isolation status: None Cognition: normal HOSPITAL CONSULTS ORDERED: GENERAL SURGERY CONSULT IP REFERRING PHYSICIAN: Ref: JANET DONG[[id number]] [address] [place] [address] (office) [phone] (fax) PRIMARY CARE PROVIDER: PCP: Jacquelyn Mckinney MD [address] [place] [address] / [facility] [phone] (office) [phone] (fax) Note: To contact a physician responsible for this patients hospital care, please call [facility] [phone]. I certify this patient is confined to the home and needs intermittent fpc care, physical therapy and/or speech therapy, or continues to need occupational therapy. The patient is under my care and I have authorized services on this plan of care. The clinical findings of decrease in functional mobility secondary to decreased strength, decreased balance, and decreased endurance due to recent hospitalization and overall medical condition support the need for home health, and the patientdemonstrates a considerable and taxing effort when attempting to leave the home. The patient had a argp-kq-pkek encounter with an allowed provider type on 07/14/2023 and the encounter was related to the primary reason for home health care. Under situations in which I am an acute/post acute facility physician who will not be following the patient's plan of care, I authorized services on this plan of care and I transfer the patient for plan of care certification to the primary care physician nickolas who will follow the patient and update the plan of care. Primary care physician Jacquelyn Mckinney MD I spent a total of 32 minutes coordinating, documenting, and providing care for this patient excluding time spent in the performance of separately billed services. documented in this encounter Discharge Instructions * Discharge Instr - AVS* Jan Redding MD - 07/13/2023 8:08 AM EST Discharge Date: 07/13/2023 Check your Patient Education Brochure for further information. You may call Dr. Medrano of the department of General Surgery at [phone] during business hours for any questions or test results. For after-hours emergencies, call [phone] and have the provider marketing content coordinator paged. The information below provides you with the instructions and the list of medications you need to betaking following discharge from the hospital. If you have any questions, please ask before leaving.Please carry this letter with you when you see your doctor in the clinic. If you have questions, you can reach us at the numbers above. Brief summary of your inpatient care: Laparoscopic cholecystectomy with NELLIE drain Research has shown that you will have less complications and return to your normal activity level sooner if you follow these simple instructions. Please follow these instructions carefully. Diet: Start with liquids 1st when your at home and then slowly move your diet up to your regular home diet as tolerated If you are nauseous, cannot drink fluids or keep them down, please let your surgeon know. Pain medication: To pump erector helper in recovery please follow these instructions regarding pain medication. First start with outc-ipd-jqsepdz pain medication. If you do not have any allergies or contraindications to any of these szjg-hnf-mlyvdle medications start with Tylenol 500 mg take every 6 hours for the 1st 48 hours after surgery then use as needed for pain. Please be mindful that you should not exceed over 3000 mg of Tylenol in a 24 hour period. When you get home please take 2 Aleve right away then starting thefollow morning take 1 Aleve in the morning and 1 Aleve at night do this for up to 1 week. If these edyc-vol-rekrycz methods are not controlling your pain then you can take ultram 1 tablet every 6 hours as needed for pain. Remember that narcotics can be constipating so take a stool softener whileyou are taking the narcotics mfbh-srq-oddzrju senna S is fine. If you are still having trouble moving your bowels then take a dose as directed on the bottle of milk of magnesia once in the morning than once in the afternoon until you move your bowels. Should you have any questions or concerns regarding your pain medication oxjb-sbe-dloonyy or prescription please call and again if you have any allergies to any medications or contraindications please do not take the aforementioned medications Activity: Continue to walk a few times a day and keep up your activity level when you are at home. You may drive 24 hours after surgery as long as you are not taking narcotic medication and you feelsafe otherwise please call the office with any questions Do not lift greater than 20 pounds. Have a family member or friend available to help you with your daily activities or household preparations. Warnings: Once home, call the surgeon promptly if you: Have pain that is getting worse or not improving with medication. Develop a fever above 101 degrees Fahrenheit. Nausea or vomiting (especially if unable to keep liquids down). Have a surgical site that becomes red, warm or has drainage. If you have trouble breathing, feel short of breath or have chest pain, this is a medical emergency, please call 911. Breathing: It is essential for you to do you deep breathing exercises 4 times per hour first 48hrs. This will continue to help prevent lung problems. Bathing: Do NOT swim in a pool or soak in a bath tub or hot tub for two weeks following your surgery. Gently wash your incision area. Do not scrub the incision site. You may shower the day after surgery Bowels: You may have some changes in your bowel habits following your surgery. It is possible that you may have loose stools or constipation. Some of the medications that you are taking or the foods that you eat can cause constipation. If you become constipated, remember to drink plenty of liquids and continue to remain active. See above instructions under pain medication Incisions: Your incisions have glue on them the glue acts as a Band-Aid you do not need to keep the incisions covered with a Band-Aid unless your clothing is irritating then you can either cover with Band-Aid or a 4 x 4 and tape It usually takes 3-4 weeks for the glue to come off after 2 weeks you may scrub the glue gently in the shower with soap It is not uncommon for your incisions to get lumpy and bumpy this should all flatten out and go away in approximately 4-8 weeks If your incisions become red or start to drain please call NELLIE drain care: Empty drain 1/2 full reach charge and record output if increasing output or output turns green or purulent please call otherwise will plan on removing drain a proximally 1 week after discharge Date you may return to work or school: Based on further instruction reviewed by surgeon after follow up visit. Follow up appointment with Surgeon as previosly scheduled or in 2 weeks * Care Mgmt Instr - AVS* Paris Campbell RN - 07/14/2023 11:02 AM EST Patient Care Team: Alcira Rutledge, RN as Vp [employer]s (Registered Nurse) Dear Ms. Mir: [facility] Care Management is here to assist in your transition from hospital to home. It was very nice to meet and talk with you during your stay. You have been referred to [facility]. Their first date of service will be on 07/18/2023. You have been referred for a Rolling Walker. This has been submitted through your insurance and the[employer] medical equipment company will reach out to you directly regarding your walker. Please resume your outpatient case management with Alcira Rutledge. Thank you for allowing us to participate in your care. If you have any questions or concerns, please contact me directly at [phone]. Wishing you good health in the future. Best Regards, CLOVIS Nelson RN Care Management/Registered Nursing, [facility] documented in this encounter Progress Notes * Sarah Shabazz MD - 07/13/2023 2:24 PM EST Images from the original note were not included. [facility] ACU-120/ INTERVAL HISTORY: -patient seen and examined. No acute events overnight. Patient denies any complaints. -patient stated that she is going to be going to her mom's place after discharge require some arrangement today and requested to be discharged tomorrow morning. Case management on board and working on getting a right for patient tomorrow morning Objective Physical Exam Most Recent Vital Signs: BP: 112 mmHg/53 mmHg (07/13/23 1100) Pulse: 56 (07/13/23 1100) Temp: 36.44 C (07/13/23 1100) Resp: 16 (07/13/23 0000) SpO2: 92 % (07/13/23 0800) Physical Exam Vitals and nursing note reviewed. Constitutional: General: She is not in acute distress. Appearance: She is not ill-appearing or diaphoretic. HENT: Head: Normocephalic and atraumatic. Eyes: Extraocular Movements: Extraocular movements intact. Conjunctiva/sclera: Conjunctivae normal. Pulmonary: Effort: Pulmonary effort is normal. Breath sounds: Normal breath sounds. Abdominal: General: Bowel sounds are normal. Palpations: Abdomen is soft. Musculoskeletal: Cervical back: Normal range of motion and neck supple. Neurological: General: No focal deficit present. Mental Status: She is alert and oriented to person, place, and time. Psychiatric: Mood and Affect: Mood normal. Behavior: Behavior normal. Peripheral Line Left Antecubital 20 Gauge (Active) Number of days: 2 Peripheral Line Left 18 Gauge (Active) Number of days: 1 Drain Abad Right;Upper Abdomen (Active) Number of days: 1 STUDIES: Encounter Orders Labs and other studies reviewed with pertinent findings noted below: Assessment and Plan IMPRESSION : Principal Problem: Acute cholecystitis Active Problems: Major depressive disorder Type 2 diabetes mellitus with hemoglobin A1c goal of less than 7.0% (HCC) Poorly controlled diabetes mellitus (HCC) Resolved Problems: * No resolved hospital problems. * DIFFERENTIAL AND PLAN: Patient is a 62-year-old diabetic with opiate dependence on Subutex, anxiety depression who presented to the ER with right upper quadrant abdominal pain and nausea vomiting found to have probable acute cholecystitis. #Acute calculous cholecystitis -status post laparoscopic cholecystectomy without complications -cleared for discharge from surgical standpoint #Opiate Dependence #Anxiety/Depression -continue musical instrument maker subutex -continue clonazepam #Uncontrolled DM II -resume musical instrument maker lantus -insulin sliding scale PHARMACOLOGIC VTE PROPHYLAXIS: This patient does not have an active medication from one of the medication groupers. CODE STATUS: Full Code EXPECTED DISCHARGE DATE: 07/14/2023 * Sarah Shabazz MD - 07/12/2023 2:54 PM EST Images from the original note were not included. [facility] OR [facility]/OR [facility] HISTORY: -patient seen and examined. She reports feeling better Objective Physical Exam Most Recent Vital Signs: BP: 122 mmHg/52 mmHg (07/12/23 1630) Pulse: 68 (07/12/23 1645) Temp: 37.28 C (07/12/23 1620) Resp: 14 (07/12/23 164) SpO2: 93 % (07/12/231644) Physical Exam Vitals and nursing note reviewed. Constitutional: General: She is not in acute distress. Appearance: She is not ill-appearing or diaphoretic. HENT: Head: Normocephalic and atraumatic. Eyes: Extraocular Movements: Extraocular movements intact. Conjunctiva/sclera: Conjunctivae normal. Pulmonary: Effort: Pulmonary effort is normal. Breath sounds: Normal breath sounds. Abdominal: General: Bowel sounds are normal. Palpations: Abdomen is soft. Musculoskeletal: Cervical back: Normal range of motion and neck supple. Neurological: General: No focal deficit present. Mental Status: She is alert and oriented to person, place, and time. Psychiatric: Mood and Affect: Mood normal. Behavior: Behavior normal. Peripheral Line Left Antecubital 20 Gauge (Active) Number of days: 1 Peripheral Line Left 18 Gauge (Active) Number of days: 0 Drain Abad Right;Upper Abdomen (Active) Number of days: 0 STUDIES: Encounter Orders Labs and other studies reviewed with pertinent findings noted below: Assessment and Plan IMPRESSION : Principal Problem: Acute cholecystitis Active Problems: Major depressive disorder Type 2 diabetes mellitus with hemoglobin A1c goal of less than 7.0% (HCC) Poorly controlled diabetes mellitus (HCC) Resolved Problems: * No resolved hospital problems. * DIFFERENTIAL AND PLAN: Patient is a 62-year-old diabetic with opiate dependence on Subutex, anxiety depression who presented to the ER with right upper quadrant abdominal pain and nausea vomiting found to have probable acute cholecystitis. #Acute calculous cholecystitis -IV fluids -IV zosyn -NPO -IV zofran prn nausea -IV toradol prn severe pain -general surgery consulted and plan for OR today #Opiate Dependence #Anxiety/Depression -continue musical instrument maker subutex -continue clonazepam #Uncontrolled DM II -resume musical instrument maker lantus tomorrow -insulin sliding scale PHARMACOLOGIC VTE PROPHYLAXIS: This patient does not have an active medication from one of the medication groupers. CODE STATUS: Full Code EXPECTED DISCHARGE DATE: 07/13/2023 documented in this encounter H&P Notes * Hood Low MD - 07/11/2023 9:15 PM EST Images from the original note were not included. [facility] ACU-120/01 PRESENTING PROBLEM: Abdominal Pain HPI: Patient is a 62 year old female with history of opioid dependence on subutex, anxiety/depression on clonazepam, type II DM who presented to the [facility] for 2 days of upper abdominal pain, mostly right-sided that felt like a burning sensation. She said she also had nonstop nausea and vomiting up until the time of her presentation. She does not report any measured fevers but has had chills. No diarrhea, but reports constipation. Patient has been eating less than usual due tothe abdominal discomfort. Patient was initially very paranoid and somewhat aggressive upon arrival to the med surge unit. It took numerous discussions to get her to calm down and allow appropriate care. She eventually was agreeable and cooperative. Subjective Patient's past history, medications, and allergies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 will likely go home the same day. In some cases, an overnight stay is needed. When you are released to go home, have a family member or friend ready to drive you. Risks of this surgery All surgeries have risks. The risks of gallbladder surgery include: Bleeding Infection Injury to the common bile duct or nearby organs Blood clots in the legs Bile leaks Hernia at the incision site Pneumonia Last Reviewed Date: 08/03/202119992604-2578 [employer]. All rights reserved. This information is not intended as a substitute for professional medical care. Always follow your healthcare professional's instructions. * Pt Handout (on AVS) - Dinorah Yu RN - 07/14/2023 9:16 AM EST Images from the original note were not included. 80683 Treating Gallstones The gallbladder is an organ that stores bile until it's needed for digestion. Bile is a substance that helps break down fats. Deposits in bile can clump together, creating hard, pebblelike stones (gallstones). In most cases, gallstones don't cause any symptoms. Sometimes they irritate the diaz of the gallbladder. Or they can block flow of bile out of the gallbladder. If the stones fall into the common bile duct, stones can block the flow of bile into the small bowel. This can lead to yellowingof the eyes and skin (jaundice), pain, or serious infection. Stones are treated only if you have symptoms. If treatment is needed, your healthcare provider will discuss your choices with you. The most common treatments are listed below. Medicine Your provider may prescribe medicines that contain bile acids to dissolve small gallstones. You mayneed to take them for a long time to break up all the stones. Once you stop the medicine, the gallstones may build up again. ERCP Endoscopic retrograde cholangiopancreatography (ERCP) is an outpatient procedure to remove stones. After you're given medicine to help you relax, the provider uses a thin tube with video and X-rays to locate stones blocking the flow of bile. They then remove the stones from the bile or pancreatic ducts. ERCP may be done alone or before surgery to remove the gallbladder. Surgery A cholecystectomy is an operation to remove the gallbladder and its contents (gallstones). Today, most of these procedures are done laparoscopically. This means using several very small cuts in the belly (abdominal incisions). Cholecystectomy may also be done with traditional surgery, using one larger incision. Your provider will talk with you about which method is best for you. Prevent future symptoms After treatment, follow the diet given to you by your healthcare provider. This diet includes lean meats, lean poultry, and fish. Stay away from full-fat dairy products. Eat foods high in fiber, suchasfruits, vegetables, and whole grains.Also eat healthy fats, such as those found in fish and oliveoil. Don't eat unhealthy fats, such as those found in desserts and fried foods. . Also don't eat refined carbohydrates or sugar. Stay at a healthy weight and get regular physical activity. Last Reviewed Date: 04/02/202119994275-7930 [employer]. All rights reserved. This information is not intended as a substitute for professional medical care. Always follow your healthcare professional's instructions. * Pt Handout (on AVS) - Dinorah Yu RN - 07/14/2023 9:15 AM EST [id number] Discharge Instructions for Laparoscopic Gallbladder Removal Surgery (Cholecystectomy) You had surgery to remove your gallbladder. This is called a cholecystectomy. You had the surgery done with laparoscopy. This means it was done with several small incisions. People who have the surgery done this way often recover more quickly. They may have less pain than with open gallbladder surgery. You can live a full and healthy life without your gallbladder. This includes eating the foods and doing the things you enjoyed before. Below are guidelines for home care after surgery. Home care To care for yourself at home: Get plenty of rest. Don?t worry if you feel tired for the first couple of weeks after your surgery. Fatigue is common. Nap when you feel tired. Wash the skin around your cut (incision) daily with mild soap and water. It's OK to shower the day after your surgery unless your healthcare provider says not to. Eat your normal diet. But don't eat rich, greasy, or spicy food for a few days. Many surgeons advise a low-fat diet for the first month after surgery. Don?t eat fried food during this time. You can walk around the house, do office work, climb stairs, or ride in a car if you feel able to do so. Ask someone to drive you to your appointments for the next [address]. [address] until you have stopped taking pain medicine. Make sure you can step on the brake pedal with no delay. Eat more fiber and use a stool softener if you are constipated. Pain medicine can cause constipation. Talk with your provider if you need more help. Don?t sit in a bathtub, swimming pool, or hot tub until your healthcare provider says it?s safe.Wait until the incision is closed. Wait until any surgical tubes (drains) are removed. Follow-up care Make a follow-up appointment with your surgeon as advised. Call your healthcare provider if these symptoms don?t go away within 1 week after your surgery: Extreme tiredness (fatigue) Pain around the incision Diarrhea or constipation Loss of appetite When to call your healthcare provider Call your healthcare provider right away if you have any of these: Yellowing of your eyes or skin (jaundice) Chills Fever of 100.4F (38.0C) or higher, or as directed by your provider Redness or swelling of the incision Fluid leaking or a bad smell from the incision Incision pain that gets worse Dark or rust-colored urine Stool that is light in color instead of brown Increasing belly pain Rectal bleeding Trouble breathing or shortness of breath Leg swelling Last Reviewed Date: 06/02/202119998272-6788 [employer]. All rights reserved. This information is not intended as a substitute for professional medical care. Always follow your healthcare professional's instructions. * Pt Handout (on AVS) - Dinorah Yu RN - 07/14/2023 9:14 AM EST Images from the original note were not included. [id number] Tizanidine Oral Tablet Brands: Zanaflex Uses For muscle spasms. Instructions This medicine may be taken with or without food, but it is important to take it the same way each time. To relieve dry mouth, chew gum, suck on hard candy/ice chips, drink extra water, or use a saliva substitute. Store at room temperature away from heat, light, and moisture. Do not keep in the bathroom. If you forget to take a dose on time, take it as soon as you remember. If it is almost time for thenext dose, do not take the missed dose. Return to your normal schedule. Do not take 2 doses at one time. Drug interactions can change how medicines work or increase risk for side effects. Tell your healthcare providers about all medicines taken. Include prescription and fehr-pun-zkyrntj medicines, vitamins, and herbal medicines. Speak with your doctor or pharmacist before starting or stopping any medicine. Cautions Tell your doctor and pharmacist if you ever had an allergic reaction to a medicine. This medicine is associated with a rare but very serious medical condition. Please speak with your doctor about symptoms you should look out for while on this medicine. Notify your doctor immediatelyif you develop those symptoms. Some patients taking this medicine have experienced serious side effects. Please speak with your doctor to understand the risks and benefits associated with this medicine. Do not use the medication any more than instructed. This medicine may cause dizziness or fainting, especially after exercising or in hot weather. Be very careful when standing or sitting up quickly. If possible, avoid using with marijuana or other medicines that can cause dizziness or drowsiness. These include allergy/cold products, muscle relaxers, sleep aids, and pain relievers. Your ability to stay alert or to react quickly may be impaired by this medicine. Do not drive or operate machinery until you know how this medicine will affect you. If you drink more than a few alcoholic beverages each day, ask your doctor whether you should be onthis medicine. Call the doctor if there are any signs of confusion or unusual changes in behavior. Tell the doctor or pharmacist if you are , planning to be , or . Do not share this medicine with anyone who has not been prescribed this medicine. Side Effects The following is a list of some common side effects from this medicine. Please speak with your doctor about what you should do if you experience these or other side effects. constipation dizziness or drowsiness lack of energy and tiredness low blood pressure liver problems muscle weakness thirst Call your doctor or get medical help right away if you notice any of these more serious side effects: change in behavior changes in memory, mood, or thinking hallucinations (unusual thoughts, seeing or hearing things that are not real) slow heartbeat signs of liver damage (such as yellowing of eye or skin, dark urine, or unusual tiredness) light colored stool severe or persistent vomiting A few people may have an allergic reaction to this medicine. Symptoms can include difficulty breathing, skin rash, itching, swelling, or severe dizziness. If you notice any of these symptoms, seek medical help quickly. Extra Please speak with your doctor, nurse, or pharmacist if you have any questions about this medicine. https://api.Amind.Telerivet/[email or web address]/fdbpem/6105 IMPORTANT NOTE: This document tells you briefly how to take your medicine, but it does not tell youall there is to know about it. Your doctor or pharmacist may give you other documents about your medicine. Please talk to them if you have any questions. Always follow their advice. There is a more complete description of this medicine available in [place]. Scan this code on your smartphone or tablet or use the web address below. You can also ask your pharmacist for a printout. If you have any questions, please ask your pharmacist. The display and use of this drug information is subject to Terms of Use. Copyright(c) 2022 [employer] 9660-9104 [employer]. All rights reserved. This information is not intended as a substitute for professional medical care. Always follow your healthcare professional's instructions. * Pt Handout (on AVS) - Dinorah Yu RN - 07/14/2023 9:14 AM EST Images from the original note were not included. [id number] Cholecystitis (Presumed) Your belly (abdominal) pain may be due to an inflammation and possible infection in the gallbladder. This is called cholecystitis. The gallbladder is a small sac under the liver. It stores and releases bile. Bile is a fluid made in the liver that helps with digesting fat. Eating fatty food stimulates the gallbladder to contract and release the bile. Gallstones may form in this sac (called cholelithiasis). Most people don't have symptoms. But if the stone moves and blocks bile from leaving the gallbladder, it can cause pain and even an infection. The infection is called cholecystitis. Bile sludge without a stone can also cause cholecystitis. To help be sure of the diagnosis, you may need to have an ultrasound, CT scan, or other special test. Several things increase the risk of developing gallstones: Being a woman Being obese Being older Losing or gaining weight quickly Having a high-calorie diet Being Using hormone therapy Having diabetes The most common symptoms are: Belly pain, cramping, aching Upset stomach (nausea), vomiting Fever Many illnesses can cause these symptoms. Gallbladder pain is called biliary colic and often starts in the upper right side of your belly. The pain can also be in the top middle part of the belly. Sometimes it can spread to your right shoulder, back, and arm. It often starts suddenly, becomes more intense quickly, and then slowly decreases and goes away over a couple of hours. Older adults and people with diabetes may have trouble showing exactly where the pain is. The pain may occur after meals, especially fatty meals. Home care If you have short periods of gallbladder pain that go away, this is called biliary colic. You may be sent home to rest in bed and follow a clear liquid diet until the pain, upset stomach, and vomiting go away. Call your healthcare provider for a follow-up appointment. Biliary colic can keep coming back and can cause acute cholecystitis. Antibiotics and other medicine may be prescribed. Take these exactly as directed. You can take acetaminophen or ibuprofen for pain, unless you were given a different pain medicine to use. Talk with your provider before using these medicines if you: o Have chronic liver or kidney disease o Ever had a stomach ulcer or GI (gastrointestinal) bleeding o Are taking blood-thinner medicines Fat in your diet makes the gallbladder contract and may cause more pain. Don't have any fat in your diet over the next 2 days. Follow a low-fat diet after that. If you are overweight, a low-fat diet will help you lose weight. Call 911 Call 911 if you have ongoing symptoms that don't get better, or if you get a fever with your symptoms. You may have acute cholecystitis. This is not a condition that should be treated at home. You should go to the emergency room. Often surgery to remove the gallbladder (cholecystectomy) is needed. Follow-up care An infection in the gallbladder is a serious problem and must be watched carefully. Keep any appointments made to have further testing and to see a general surgeon. See your healthcare provider for another exam in the next 1 to 2 days, or as advised. Once cholecystitis has occurred, removing the gallbladder is often needed to prevent a recurrence. You can talk with your provider about this at your follow-up visit. If you were hospitalized for cholecystitis, your gallbladder may be taken out during that same hospital stay. Gallstones that aren't causing infection or symptoms often don't need surgery. When to get medical advice Call your healthcare provider if any of these occur: Repeated vomiting Belly swelling Pain lasting more than 6 hours Fever of 100.4F (38C) or higher, or as advised by your provider Shaking chills Weakness, dizziness, or fainting Dark yellow pee (urine) or poop (stool) that's light campbell or nida-colored Yellow color of the skin or eyes (jaundice) Chest, arm, back, neck, or jaw pain Last Reviewed Date: 01/31/202219995673-0245 [employer]. All rights reserved. This information is not intended as a substitute for professional medical care. Always follow your healthcare professional's instructions. * Pt Handout (on AVS) - Dinorah Yu RN - 07/14/2023 9:14 AM EST 74702 Cholecystectomy You?ve had painful attacks caused by gallstones. To treat the problem, your healthcare provider wants to remove your gallbladder. This surgery is called a cholecystectomy. Taking out the gallbladder can ease pain. It will also help stop future attacks. You can live a healthy life without your gallbladder. You may also be able to go back to eating foods you liked before your gallbladder problems started. Before your surgery To get ready: Tell your healthcare provider what medicines you take. Include both prescription and xpek-ifk-yoqkpyb medicines. Also include vitamins, herbs, and supplements. Be sure to mention if you take prescription blood thinners. This includes warfarin, clopidogrel, and aspirin. Have any tests your provider asks for, such as blood tests. Follow any directions you're given for not eating or drinking before your surgery. You may need to take some medicine with sips of water. Talk with your healthcare provider. You'll be asked to sign an informed consent document. Signing the form means you understand the surgery. It means you agree to the procedure. Be sure all of your questions are answered before you sign the form. The day of surgery When you arrive, you'll get ready for surgery: An IV (intravenous) line will be put into a vein in your arm or hand. This gives you fluids and medicine. An anesthesiologist will talk with you about anesthesia. This is medicine used to prevent pain. You'll get general anesthesia. This puts you into a deep sleep during the procedure. During surgery There are 2 methods for taking out the gallbladder. Your healthcare provider will choose which way is best for you: Laparoscopic cholecystectomy. This is most common. During surgery, 2 to 4 small cuts (incisions)are made. A thin tube with a camera is used. This is called a laparoscope. The scope is put throughone of the cuts. It sends images to a video screen. Tiny tools for surgery are put through other cuts. The gallbladder is taken out using the scope and these tools. Open cholecystectomy. One larger incision is made. The surgeon sees and works through this cut. Open surgery is most often used when scarring or other things make it a better choice for you. In some cases, your provider may need to change from laparoscopic to open surgery during the procedure. Clips close off the duct connecting the gallbladder to the bile duct. The gallbladder is then removed. After surgery You'll be sent to a room to wake up from the anesthesia. You'll likely go home the same day. In some cases, you'll need to stay overnight. If you had open cholecystectomy, you may need to stay in thehospital for a few days. When you're released to go home, have a family member or friend ready to drive you. If you're told to take medicines after surgery, do so as told. If you're told to do breathing exercise, do them as directed. You'll be scheduled for a follow-up visit. Risks and possible complications of gallbladder surgery All surgeries have risks. The risks of gallbladder surgery include: Bleeding Infection Injury to the common bile duct or nearby organs Blood clots in the legs Bile leaks Hernia at incision site Pneumonia Call your surgeon if you have these symptoms: Fever of 100.4F (38.0C) or higher, or as directed by your provider Redness, pain, or fluid leaking at the incision site Yellow color to your skin or eyes Severe pain or cramping in your belly Vomiting that continues and unable to keep down fluids Unable to have a bowel movement within 3 days Trouble peeing Rectal bleeding Leg swelling Call 911 Call 911 if you have sudden shortness of breath or trouble breathing. Last Reviewed Date: 05/03/202119991779-2347 [employer]. All rights reserved. This information is not intended as a substitute for professional medical care. Always follow your healthcare professional's instructions. * Progress Notes - Post-Op Tiki - Jan Redding MD - 07/14/2023 9:12 AM EST PROGRESS NOTE - General Surgery [facility] [address] [address] [facility] [id number] Name: Jay Mir Location: [facility] [id number] Date: 07/14/2023 Time: 9:13 AM DIAGNOSIS: Acute cholecystitis PROCEDURE: Laparoscopic cholecystectomy DATE OF SURGERY: 07/12/2023 POST OP DAY: 2 SUBJECTIVE: Complains of incisional pain around the drain otherwise states she is doing well tolerating a diet no nausea no vomiting OBJECTIVE: Most Recent Vital Signs: BP: 129 mmHg/61 mmHg (07/14/23799) Pulse: 62 (07/14/23799) Temp: 35.72 C (07/14/23799) Resp: 18 (07/14/23799) SpO2: 92 % (07/14/23799) Vital Signs Last 24 Hours: Systolic BP: Most Recent Systolic BP Av.8 mmHg Min: 82 mmHg Max: 129 mmHg Temperature: Most Recent Temperature Av.2 C Min: 35.72 C Max: 36.61 C Pulse: Pulse Av.1 Min: 54 Max: 62 Respirations: Resp Av Min: 18 Max: 18 SpO2: SpO2 Av.7 % Min: 92 % Max: 100 % NELLIE drain 15 mL of serosanguineous Intake/Output Summary (Last 24 hours) at 07/14/2023 0913 Last data filed at 07/14/2023 0429 Gross per 24 hour Intake 2533.64 ml Output 15 ml Net 2518.64 ml Physical Exam Constitutional: General: She is not in acute distress. Appearance: Normal appearance. She is not ill-appearing, toxic-appearing or diaphoretic. HENT: Head: Normocephalic and atraumatic. Right Ear: External ear normal. Left Ear: External ear normal. Eyes: General: No scleral icterus. Right eye: No discharge. Left eye: No discharge. Conjunctiva/sclera: Conjunctivae normal. Pupils: Pupils are equal, round, and reactive to light. Cardiovascular: Rate and Rhythm: Normal rate and regular rhythm. Heart sounds: Normal heart sounds. No murmur heard. No friction rub. No gallop. Pulmonary: Effort: No respiratory distress. Breath sounds: No stridor. No wheezing, rhonchi or rales. Chest: Chest wall: No tenderness. Abdominal: General: Abdomen is flat. Bowel sounds are normal. There is no distension. Palpations: Abdomen is soft. There is no mass. Tenderness: There is abdominal tenderness. There is no guarding or rebound. Hernia: No hernia is present. Comments: Soft appropriately tender over incisions no rebound or guarding dressings removed incisions are clean dry and intact Musculoskeletal: Cervical back: Normal range of motion and neck supple. No rigidity. No muscular tenderness. Skin: General: Skin is warm and dry. Findings: No bruising, erythema or lesion. Neurological: General: No focal deficit present. Mental Status: She is alert and oriented to person, place, and time. Mental status is at baseline. Psychiatric: Mood and Affect: Mood normal. Behavior: Behavior normal. Thought Content: Thought content normal. Judgment: Judgment normal. LABS: Labs reviewed as indicated below: Latest Reference Range & Units 07/13/23 06:08 Sodium 135 - 146 mmol/L 134 (L) Potassium 3.5 - 5.1 mmol/L 4.0 Chloride 98 - 107 mmol/L 99 CO2 22 - 32 mmol/L 18 (L) BUN 6 - 20 mg/dL 31 (H) Creatinine 0.5 - 1.0 mg/dL 1.0 Estimated Glomerular Filtration Rate >=60 mL/min 61 Anion Gap 7 - 15 mmol/L 17 (H) Glucose 70 - 120 mg/dL 424 (H) Calcium 8.4 - 10.2 mg/dL 8.3 (L) Protein 6.0 - 8.3 g/dL 5.7 (L) CBC Rpt ! WBC 4.00 - 10.80 K/uL 9.20 HGB 12.0 - 15.3 g/dL 9.2 (L) HCT 36.0 - 45.2 % 29.0 (L) MCV 81.5 - 97.5 fL 94.2 PLT 140 - 400 K/uL 124 (L) Albumin 3.8 - 5.0 g/dL 3.0 (L) AST 10 - 35 U/L 99 (H) ALT 10 - 35 U/L 73 (H) Alkaline Phosphatase 35 - 130 U/L 113 Bilirubin, Total <=1.2 mg/dL 0.5 (L): Data is abnormally low (H): Data is abnormally high !: Data is abnormal Rpt: View report in Results Review for more information IMPRESSION: Principal Problem (Resolved): Acute cholecystitis Active Problems: Major depressive disorder Type 2 diabetes mellitus with hemoglobin A1c goal of less than 7.0% (HCC) Poorly controlled diabetes mellitus (HCC) PLAN: H&H has dropped again today to 7.2 NELLIE drain is minimal serosanguineous Will discuss with Medicine Continue current care * Ancillary Progress Note - Trinidad Garber RN - 07/13/2023 3:56 PM EST Care Management Discharge Planning Note: [facility] accepted referral. Manager Medicaid spoke with Jenifer on the phone. Jenifer indicated the first DOS would be 07/18/2023. * Ancillary Progress Note - Paris Leslie MSW - 07/13/2023 3:15 PM EST Care management discharge Planning note: Manager Medicaid contacted [facility] and spoke with Miranda to place referral for HC for SN. Miranda stated they do not accept [facility]. * Ancillary Progress Note - Paris Leslie MSW - 07/13/2023 2:23 PM EST Care management Discharge Planning Note: Per discussion with Hospitalist, Pt will be medically cleared for dc tomorrow. Pt notified Hospitalist that she will be going to her mother's home in [place] temporarily upon dc. Manager Medicaid met with pt who stated she is planning to go to her mother's home temporarily at [address] [facility], [address], [place]. Manager Medicaid asked Pt about transportation for home. Pt stated she has several vouchers for the [employer] and showed 5-$50 vouchers to this fiction and nonfiction writer prose. Manager Medicaid asked pt if she would like the [facility] SN to see her at her mother's home. She stated no, that she will be back to her home in a few days and wants SN to begin there. Manager Medicaid discussed options for HC agencies. Pt stated she has no preference other than she does not wish to have the same company she had prior. Manager Medicaid contacted [employer] at [phone] and spoke with Katherine who is familiar with Pt. Manager Medicaid notified Katherine of vouchers. Katherine stated Pt will have enough and stated someone will be able to pepper picker Pt between 11-1130 tomorrow morning. Katherine requested CM contact her tomorrow morning at 1000 to confirm the ride is still needed. Manager Medicaid placed home health referral with [facility] who declined referral. Manager Medicaid contacted Bowen with [facility] to provide referral. Bowen stated they are not able to cover the area. Manager Medicaid contacted [facility] and spoke with Marybeth who took the referral and stated they will need to review and contact fiction and nonfiction writer prose back. Manager Medicaid released in [place]. Manager Medicaid met with Pt to update. * Progress Notes - Post-Op Global - Jan Redding MD - 07/13/2023 8:03 AM EST PROGRESS NOTE - General Surgery [facility] [address] [facility] [place] [address] Name: Jay Mir Location: [facility] ACU-120/01 Date: 07/13/2023 Time: 8:03 AM DIAGNOSIS: Acute cholecystitis PROCEDURE: Laparoscopic cholecystectomy DATE OF SURGERY: 07/12/2023 POST OP DAY: 1 SUBJECTIVE: States that she is doing well has some incisional pain no nausea no vomiting NELLIE drain is nonbilious OBJECTIVE: Most Recent Vital Signs: BP: 99 mmHg/48 mmHg (07/13/23799) Pulse: 62 (07/13/23 08) Temp: 36.39 C (07/13/23 08) Resp: 16 (07/13/23 0000) SpO2: 92 % (07/13/23799) Vital Signs Last 24 Hours: Systolic BP: Most Recent Systolic BP Av.1 mmHg Min: 88 mmHg Max: 158 mmHg Temperature: Most Recent Temperature Av.3 C Min: 36.11 C Max: 38 C Pulse: Pulse Av.3 Min: 58 Max: 88 Respirations: Resp Av.8 Min: 14 Max: 20 SpO2: SpO2 Av.4 % Min: 91 % Max: 99 % NELLIE drain 10 mL of serosanguineous Intake/Output Summary (Last 24 hours) at 07/13/2023 0803 Last data filed at 07/12/2023 1611 Gross per 24 hour Intake 1540.78 ml Output -- Net 1540.78 ml Physical Exam Constitutional: General: She is not in acute distress. Appearance: Normal appearance. She is not ill-appearing, toxic-appearing or diaphoretic. HENT: Head: Normocephalic and atraumatic. Right Ear: External ear normal. Left Ear: External ear normal. Eyes: General: No scleral icterus. Right eye: No discharge. Left eye: No discharge. Conjunctiva/sclera: Conjunctivae normal. Pupils: Pupils are equal, round, and reactive to light. Cardiovascular: Rate and Rhythm: Normal rate and regular rhythm. Heart sounds: Normal heart sounds. No murmur heard. No friction rub. No gallop. Pulmonary: Effort: No respiratory distress. Breath sounds: No stridor. No wheezing, rhonchi or rales. Chest: Chest wall: No tenderness. Abdominal: General: Abdomen is flat. Bowel sounds are normal. There is no distension. Palpations: Abdomen is soft. There is no mass. Tenderness: There is abdominal tenderness. There is no guarding or rebound. Hernia: No hernia is present. Comments: Soft appropriately tender over incisions no rebound or guarding dressings was serosanguineous strike through underneath Musculoskeletal: Cervical back: Normal range of motion and neck supple. No rigidity. No muscular tenderness. Skin: General: Skin is warm and dry. Findings: No bruising, erythema or lesion. Neurological: General: No focal deficit present. Mental Status: She is alert and oriented to person, place, and time. Mental status is at baseline. Psychiatric: Mood and Affect: Mood normal. Behavior: Behavior normal. Thought Content: Thought content normal. Judgment: Judgment normal. LABS: Labs reviewed as indicated below: Latest Reference Range & Units 07/13/23 06:08 Sodium 135 - 146 mmol/L 134 (L) Potassium 3.5 - 5.1 mmol/L 4.0 Chloride 98 - 107 mmol/L 99 CO2 22 - 32 mmol/L 18 (L) BUN 6 - 20 mg/dL 31 (H) Creatinine 0.5 - 1.0 mg/dL 1.0 Estimated Glomerular Filtration Rate >=60 mL/min 61 Anion Gap 7 - 15 mmol/L 17 (H) Glucose 70 - 120 mg/dL 424 (H) Calcium 8.4 - 10.2 mg/dL 8.3 (L) Protein 6.0 - 8.3 g/dL 5.7 (L) CBC Rpt ! WBC 4.00 - 10.80 K/uL 9.20 HGB 12.0 - 15.3 g/dL 9.2 (L) HCT 36.0 - 45.2 % 29.0 (L) MCV 81.5 - 97.5 fL 94.2 PLT 140 - 400 K/uL 124 (L) Albumin 3.8 - 5.0 g/dL 3.0 (L) AST 10 - 35 U/L 99 (H) ALT 10 - 35 U/L 73 (H) Alkaline Phosphatase 35 - 130 U/L 113 Bilirubin, Total <=1.2 mg/dL 0.5 (L): Data is abnormally low (H): Data is abnormally high !: Data is abnormal Rpt: View report in Results Review for more information IMPRESSION: Principal Problem: Acute cholecystitis Active Problems: Major depressive disorder Type 2 diabetes mellitus with hemoglobin A1c goal of less than 7.0% (HCC) Poorly controlled diabetes mellitus (HCC) Resolved Problems: * No resolved hospital problems. * PLAN: If tolerates diet In cleared from a medical standpoint okay to discharge home later today if doing okay Keep NELLIE in x1 week and follow-up in clinic for removal Discharge instructions given she is okay to shower with the dressing in place today no baths or swimming pools x2 weeks if goes home today then can remove dressing tomorrow and cover areas with Band-Aid or leave open to air Reviewed with her signs and symptoms of emergency if she has increasing pain nausea vomiting feverschills chest pain shortness of breath she should call or go to the ER She voiced understanding * Care Plan - Sarbjit Roberson RN - 07/13/2023 4:30 AM EST Clinical Goal(s): pt will remain injury and fall free this shift (07/12/23 2300) Possible barriers to meeting goal(s)/advancing plan of care: medical diagnosis Stability of the patient: Moderately stable - low risk of patient condition declining or worsening Summary regarding today's goal(s): Met: goal met Recommendations: keep pt ambulating as much as possible * Communication - Aniket Medrano MD - 07/12/2023 4:16 PM EST Post operative plan: - Pain Control: As needed - Pulmonary hygiene: RDP/IS - Diet: Regular - N/V: Ondansetron - ABx: 24 hours post op * Ancillary Progress Note - Paris Leslie MSW - 07/12/2023 2:13 PM EST CARE MANAGEMENT - ADULT INITIAL SCREENING [facility] [address] [facility] [address] Name: Jay Mir Location: [place] [facility] Date: 07/12/2023 Time: 2:14 PM Discussed patient with the interdisciplinary care team. This Boiler Or Engine Operator performed a chart review and met with Pt at bedside to complete admission screen and assessed needs for transition planning. The pet caretaker role and services were explained and emotional support was provided. Manager Medicaid met with Pt in order to complete care management assessment and to discuss DC planning. Pt was admitted inpatient on 07/11/23 from home after presenting with s/s of acute cholecystitis. Pt describes having an intact family support system. Pt's medical decision maker has been identified as being Vincent Samson, Mother, who is involved with the DC planning process. Per review of the medical record, Pt has a Hx of MH. Pt denies being followed by psychiatrist or any prior Hx of behavioral health. Pt denies any current or prior Hx of substance abuse. Per medical record, Pt has a hx of opioid abuse. Pt reports being able to read and write. Pt denies difficulty managing own medications. Pt's primary pharmacy has been identified as being [facility]. Pt denies difficulty completing ADLs prior to admission. Chief Complaint: No chief complaint on file. Prior Living Arrangements What was your living situation prior to admission/observation?: Independently;Alone (07/12/231410) Living Quarters: House (07/12/231410) Number of steps to enter living quarters:: 14 (07/12/231410) Do you have serious difficulty walking or climbing stairs? (5 years old or older): Yes (last few days because of being ill) (07/11/232138) History of falling: No (07/12/23899) Prior Level of Functioning Describe the patient's ability prior to admission/observation to perform ADLs: Performs independently (07/12/231410) Describe the patient's mobility status prior to admission: Patient ambulates independently (07/12/231410) Patient uses assistive device: No (07/12/231410) Caregiver Information Patient Contacts Name Relation Home Work Mobile VINCENT SAMSON Mother [phone] Stefan Adult Child [phone] Risk Stratification/Psychosocial/Care Gaps Risk Stratification Psycho Social / Medical Concerns Identified: Adjustment to illness/injury;Behavioral Health Diagnosis (MH/MR) (07/12/231410) Accessed [facility] to connect patients to social care resources: No (07/12/231410) OBRA or OPTIONS needed for placement: No (07/12/231410) Readmission Risk Score: 9.11 (07/12/23 1200) AM-PAC Score With Stairs : 24 (07/12/23899) Prior to Admission Services Services Prior to Admission [employer] Services (Services received within the last 30 days with exception, Psych within last two years): N/A (07/12/231410) [place] Dept[place] of Aging (PDA) Waiver Program: N/A (07/12/231410) [employer] Transportation (Services received within the last 30 days): Family/Friends Personal Vehicle;Medical Transportation (07/12/231410) Outpatient Boiler Or Engine Operator: Patient Care Team: Alcira Rutledge, RN as Vp [employer] Partnerships (Registered Nurse) Patient/Family Expectations: Return Home Once deemed medically appropriate, it is anticipated patient will DC home with needs pending continued medical work-up/evaluations/findings. Pt may benefit from HC for SN pending Tx Team's recommendation for same. Manager Medicaid will continue to meet with treatment team in order to discuss DC planning/needs. Manager Medicaid will continue to follow for any identified needs and or concerns which may arise. For further screening information, please refer to the Care Management flow document. * Ancillary Progress Note - Nancy Garber RDN - 07/12/2023 10:12 AM EST CLINICAL NUTRITION ADULT RISK ASSESSMENT [place] [address] [facility] [address] Name: Jay Mir Location: [facility] ACU-120/ Date: 07/12/2023 Time: 10:12 AM How patient was identified (select 2): date and Name Jay Mir is a 62 year old female being assessed for clinical nutrition risk related to reduced dietary intake and significant unintentional weight loss Primary diagnosis: Principal Problem: Acute cholecystitis (POA: Yes) Active Problems: Major depressive disorder (POA: Yes) Overview: ICD-10 update of inactive term Type 2 diabetes mellitus with hemoglobin A1c goal of less than 7.0% (HCC) (POA: Yes) Overview: ICD-10 update of inactive term Poorly controlled diabetes mellitus (HCC) (POA: Yes) POA = Present On Admission Other pertinent information: Patient denies any recent weight changes or changes in intake. NPO at this time awaiting workup of symptoms. Anthropometrics Measurements Admission weight (for dietitians): 64.5kg Height: 167.6 cm (5' 5.98") (07/11/232338) Weight: 64.5 kg (142 lb 3.2 oz) (07/11/232338) BMI: 22.96 (07/11/232338) Usual Body Weight or EDW for Dialysis Patients: 140# per patient Diet: NPO Previously followed diet: regular Food Allergies/Intolerances: none Oral Nutrition Supplement (ONS): none Pertinent medications/vitamins/minerals/supplements: NSS infusion at 75mL/hr, novolog, lantus RISK FACTORS: Adult Energy Intake: No significant decrease Interpretation of Weight Change: No recent/significant weight change Per CareEverywhere, 04/2022 60.6kg Skin: Intact NUTRITION RISK CATEGORY: Nutrition Risk Category: Low/Moderate (0-1 factors) Clinical Nutrition Recommendations: Diet: Advance diet when clinically feasible NUTRITION INTERVENTION/PLAN: Risk/Re-risk Assessment completed. Continue to monitor NPO/clear liquid status Will follow and adjust nutritional plan as medical condition requires. Please contact for change(s)in patient condition requiring earlier intervention. Ana Maria Garber RD, LDN Clinical Dietitian II [facility] Available via [employer] * Care Plan - Marilu Mandujano RN - 07/12/2023 6:21 AM EST Clinical Goal(s): Patient will have pain level of <5 (07/11/23 2300) Possible barriers to meeting goal(s)/advancing plan of care: Stability of the patient: Moderately stable - low risk of patient condition declining or worsening Summary regarding today's goal(s): Met: pain level of 3 Recommendations: continue to monitor documented in this encounter Plan of Treatment Upcoming Encounters Date Type Department Care Team (Late st Contact Info) Description 07/21/2023 9:00 AM EST Office Visit General Surgery, [facility] [address] [place] [address] Aniket Medrano MD [address] [place] [address] Health Maintenance Due Date Last Done Comments DXA Scan 1961 COVID-19 Vaccine (#1) 02/04/1962 Pneumococcal Vaccine: Pediatrics (0 to 5 Years) and At-Risk Patients (6 to 64 Years) (1 - PCV) 1967 Depression Screening 1973 Diabetic Eye Exam 1979 Diabetic Foot Exam 1979 Hepatitis C Screening 1979 DTaP,Tdap,and Td Vaccines (1 - Tdap) 1980 HPV/Co-Test 1991 Mammogram 2001 Cervical Cancer Screening 03/10/2006 Pap Smear 03/10/2006 03/10/2003, 04/0 08/2001, 02/01/2001 Cologuard 2006 Colonoscopy 2006 Colorectal Cancer Screening 2006 Fecal Occult Blood Test 2006 Sigmoidoscopy 2006 Zoster Vaccines (1 of 2) 2011 Hepatitis B (1 of 3 - Risk 3-dose series) 2021 Influenza Vaccine (FLU shot) (#1) 2023 04/04/2018, 04/11/2011 Albumin/Creatinine Ratio 03/21/2023 022, 05/09/2003, 02/18/2002, Additional history exists HbA1c 08/23/2023 02/20/2023, 03/03, 11/15/2020, Additional history exists GFR 07/13/2024 07/13/2023, 07/03, 07/11/2023, Additional history exists Lipid Panel 03/21/2027 03/21/2022, 02/02, 05/09/2003, Additional history exists HIV Screening Completed 03/17/2021 GARDASIL-HPV IMMUNIZATION SERIES Aged Out No longer eligible based on patient's age to complete this topic MENINGOCOCCAL (MENACTRA/MENVEO) Aged Out No longer eligible based on patient's age to complete this topic documented as of this encounter Medical Devices Not on filedocumented as of this encounter Procedures Procedure Name Priority Date/Time Associated Diagnosis Comments CBC Routine 07/14/2023 10:43 AM EST GLUCOSE METER, POINT OF CARE [facility] 07/14/2023 7:21 AM EST CBC STAT 07/14/2023 2:10 AM EST GLUCOSE METER, POINT OF CARE [facility] 07/13/2023 9:11 PM EST GLUCOSE METER, POINT OF CARE [facility] 07/13/2023 4:10 PM EST GLUCOSE METER, POINT OF CARE [facility] 07/13/2023 11:14 AM EST GLUCOSE METER, POINT OF CARE [facility] 07/13/2023 9:19 AM EST GLUCOSE METER, POINT OF CARE [facility] 07/13/2023 7:31 AM EST COMPREHENSIVE METABOLIC PANEL Routine 07/13/2023 6:08 AM EST CBC Routine 07/13/2023 6:08 AM EST GLUCOSE METER, POINT OF CARE [facility] 07/12/2023 9:24 PM EST GLUCOSE METER, POINT OF CARE [facility] 07/12/2023 5:26 PM EST SURGICAL PATHOLOGY Routine 07/12/2023 3: 45 PM EST Acute cholecystitis LAPAROSCOPY; CHOLECYSTECTOMY 07/12/2023 2:28 PM EST Acute cholecystitis GLUCOSE METER, POINT OF CARE [facility] 07/12/2023 11:51 AM EST HEPATIC FUNCTION PANEL Routine 6:13 AM EST BASIC METABOLIC PANEL Routine 07/12/2023 6:13 AM EST PHOSPHORUS Routine 07/12/2023 6:13 AM EST CBC Routine 07/12/2023 6:13 AM EST MAGNESIUM Routine 07/12/2023 6:13 AM EST GLUCOSE METER, POINT OF CARE [facility] 07/12/2023 5:57 AM EST GLUCOSE METER, POINT OF CARE [facility] 07/11/2023 11:16 PM EST GLUCOSE METER, POINT OF CARE [facility] 07/11/2023 8:26 PM EST documented in this encounter Results * (ABNORMAL) CBC (07/14/2023 10:43 AM EST) WBC 7.10 4.00 - 10.80 K/uL 07/14/2023 10:49 AM EST LABORATORY [facility] RBC 3.15 3.85 - 5.15 M/uL 07/14/2023 10:49 AM EST LABORATORY [facility] HGB 9.5(L) 12.0 - 15.3 g/dL 07/14/2023 10:49 AM EST LABORATORY [facility] HCT 28.8(L) 36.0 - 45.2 % 07/14/2023 10:49 AM EST LABORATORY [facility] MCV 91.4 81.5 - 97.5 fL 07/14/2023 10:49 AM EST LABORATORY [facility] MCH 30.2 27.0 - 34.0 pg 07/14/2023 10:49 AM EST LABORATORY [facility] MCHC 33.0 32.0 - 36.0 g/dL 07/14/2023 10:49 AM EST LABORATORY [facility] RDW 12.9 11.5 - 15.5 % 07/14/2023 10:49 AM EST LABORATORY [facility] PLT 153 140 - 400 K/uL 07/14/2023 10:49 AM EST LABORATORY [facility] MPV 10.8 6.6 - 11.1 fL 07/14/2023 10:49 AM EST LABORATORY [facility] nRBCs 0 <=0 /100 WBCs 07/14/2023 10:49 AM EST LAB[facility]ATORY [facility] Blood Capillary blood specimen / Unknown Capillary / Unknown 07/14/2023 10:43 AM EST 07/14/2023 10:47 AM EST Sarah Shabazz MD LAB BLOOD ORDERABLES LAB[facility]ATORY [facility] [address] [place] [address] * GLUCOSE METER, POINT OF CARE (07/14/2023 7:21 AM EST) Glucose Meter 105 70 - 120 mg/dL 07/14/2023 7:24 AM EST LABORATORY [facility] HOP 66-52 Blood Whole blood specimen / Unknown 07/14/2023 7:21 AM EST 07/14/2023 7:24 AM EST Sarah Shabazz MD LAB POINT OF CARE TE ST DOCKED DEVICE UNSOLICITED RESULTS LABORATORY [facility] HOP 66-[address] [place] [address] * (ABNORMAL) CBC (07/14/2023 2:10 AM EST) WBC 5.33 4.00 - 10.80 K/uL 07/14/2023 2:56 AM EST LABORATORY [facility] RBC 2.33 3.85 - 5.15 M/uL 07/14/2023 2:56 AM EST LABORATORY [facility] HGB 7.2(L) 12.0 - 15.3 g/dL 07/14/2023 2:56 AM EST LABORATORY [facility] HCT 21.9(L) 36.0 - 45.2 % 07/14/2023 2:56 AM EST LABORATORY [facility] MCV 94.0 81.5 - 97.5 fL 07/14/2023 2:56 AM EST LABORATORY [facility] MCH 30.9 27.0 - 34.0 pg 07/14/2023 2:56 AM EST LABORATORY [facility] MCHC 32.9 32.0 - 36.0 g/dL 07/14/2023 2:56 AM EST LABORATORY [facility] RDW 13.1 11.5 - 15.5 % 07/14/2023 2:56 AM EST LABORATORY [facility] PLT 100(L) 140 - 400 K/uL 07/14/2023 2:56 AM EST LABORATORY [facility] MPV 11.5 6.6 - 11.1 fL 07/14/2023 2:56 AM EST LABORATORY [facility] nRBCs 0 <=0 /100 WBCs 07/14/2023 2:56 AM EST LABORATORY [facility] Blood Venous blood specimen / Unknown Venipuncture / Unknown 07/14/2023 2:10 AM EST 07/14/2023 2:19 AM EST Heath De Los Santos DO LAB BLOOD ORDAmy PRATT LABORATORY [facility] [address] * (ABNORMAL) GLUCOSE METER, POINT OF CARE (07/13/2023 9:11 PM EST) Glucose Meter 194(H) 70 - 120 mg/dL 07/13/2023 9:21 PM EST LABORATORY [facility] HOP 66-52 Blood Whole blood specimen / Unknown 07/13/2023 9:11 PM EST 07/13/2023 9:21 PM EST Sarah Shabazz MD LAB POINT OF CARE TE ST DOCKED DEVICE UNSOLICITED RESULTS LABORATORY [facility] HOP 66-[address] * (ABNORMAL) GLUCOSE METER, POINT OF CARE (07/13/2023 4:10 PM EST) Glucose Meter 280(H) 70 - 120 mg/dL 07/13/2023 5:21 PM EST LABORATORY [facility] HOP 66-52 Blood Whole blood specimen / Unknown 07/13/2023 4:10 PM EST 07/13/2023 5:21 PM EST Sarah Shabazz MD LAB POINT OF CARE TE ST DOCKED DEVICE UNSOLICITED RESULTS Performing Organization Address [facility] Co de Phone Number LABORATORY [facility] HOP [address] * (ABNORMAL) GLUCOSE METER, POINT OF CARE (07/13/2023 11:14 AM EST) Glucose Meter 252(H) 70 - 120 mg/dL 07/13/2023 11:25 AM EST LABORATORY [facility] HOP 66-52 Blood Whole blood specimen / Unknown 07/13/2023 11:14 AM EST 07/13/2023 11:25 AM EST Sarah Shabazz MD LAB POINT OF CARE TE ST DOCKED DEVICE UNSOLICITED RESULTS Performing Organization Address City/[facility] Co de Phone Number LABORATORY [facility] HOP 66[address] * (ABNORMAL) GLUCOSE METER, POINT OF CARE (07/13/2023 9:19 AM EST) Glucose Meter 347(H) 70 - 120 mg/dL 07/13/2023 9:23 AM EST LABORATORY [facility] HOP 66-52 Blood Whole blood specimen / Unknown 07/13/2023 9:19 AM EST 07/13/2023 9:23 AM EST Sarah Shabazz MD LAB POINT OF CARE TE ST DOCKED DEVICE UNSOLICITED RESULTS Performing Organization Address City/[facility]/ZIP Co de Phone Number LABORATORY [facility] HOP [address] [place] [address] * (ABNORMAL) GLUCOSE METER, POINT OF CARE (07/13/2023 7:31 AM EST) Glucose Meter 363(H) 70 - 120 mg/dL 07/13/2023 8:29 AM EST LABORATORY [facility] HOP 66-52 Blood Whole blood specimen / Unknown 07/13/2023 7:31 AM EST 07/13/2023 8:29 AM EST Sarah Shabazz MD LAB POINT OF CARE TE ST DOCKED DEVICE UNSOLICITED RESULTS Performing Organization Address [facility] de Phone Number LABORATORY [facility] [address] [place] [address] * (ABNORMAL) CBC (07/13/2023 6:08 AM EST) WBC 9.20 4.00 - 10.80 K/uL 07/13/2023 6:43 AM EST LABORATORY [facility] RBC 3.08 3.85 - 5.15 M/uL 07/13/2023 6:43 AM EST LABORATORY [facility] HGB 9.2(L) 12.0 - 15.3 g/dL 07/13/2023 6:43 AM EST LABORATORY [facility] HCT 29.0(L) 36.0 - 45.2 % 07/13/2023 6:43 AM EST LABORATORY [facility] MCV 94.2 81.5 - 97.5 fL 07/13/2023 6:43 AM EST LABORATORY [facility] MCH 29.9 27.0 - 34.0 pg 07/13/2023 6:43 AM EST LABORATORY [facility] MCHC 31.7 32.0 - 36.0 g/dL 07/13/2023 6:43 AM EST LABORATORY [facility] RDW 13.0 11.5 - 15.5 % 07/13/2023 6:43 AM EST LABORATORY [facility] PLT 124(L) 140 - 400 K/uL 07/13/2023 6:43 AM EST LABORATORY [facility] MPV 10.7 6.6 - 11.1 fL 07/13/2023 6:43 AM EST LAB[facility]ATORY [facility] nRBCs 0 <=0 /100 WBCs 07/13/2023 6:43 AM EST LAB[facility]ORY [facility] Blood Venous blood specimen / Unknown Venipuncture / Unknown 07/13/2023 6:08 AM EST 07/13/2023 6:34 AM EST Sarah Shabazz MD LAB BLOOD ORDERABLES LAB[facility]ATORY [facility] [address] * (ABNORMAL) COMPREHENSIVE METABOLIC PANEL (07/13/2023 6:08 AM EST) BUN 31(H) 6 - 20 mg/dL 07/13/2023 7:06 AM EST LAB[facility]ORY [facility] Creatinine 1.0 0.5 - 1.0 mg/dL 07/13/2023 7:06 AM EST LAB[facility]ORY [facility] Estimated Glomerular Filtration Rate 61 >=60 mL/min 07/13/2023 7:06 AM EST LAB[facility]ORY [facility] Comment:eGFR is calculated b ased on the CKD-EPI 2020 equation Sodium 134(L) 135 - 146 mmol/L 07/13/2023 7:06 AM EST LAB[facility]ORY [facility] Potassium 4.0 3.5 - 5.1 mmol/L 07/13/2023 7:06 AM EST LAB[facility]ORY [facility] Chloride 99 98 - 107 mmol/L 07/13/2023 7:06 AM EST [facility] CO2 18(L) 22 - 32 mmol/L 07/13/2023 7:06 AM EST [facility] [facility] Anion Gap 17(H) 7 - 15 mmol/L 07/13/2023 7:06 AM EST LAB[facility]ATORY [facility] Glucose 424(H) 70 - 120 mg/dL 07/13/2023 7:06 AM EST [facility] Albumin 3.0(L) 3.8 - 5.0 g/dL 07/13/2023 7:06 AM EST [facility] AST 99(H) 10 - 35 U/L 07/13/2023 7:06 AM EST [facility] Alkaline Phosphatase 113 35 - 130 U/L 07/13/2023 7:06 AM EST [facility] Bilirubin, Total 0.5 <=1.2 mg/dL 07/13/2023 7:06 AM EST [facility] Calcium 8.3(L) 8.4 - 10.2 mg/dL 07/13/2023 7:06 AM EST [facility] Protein 5.7(L) 6.0 - 8.3 g/dL 07/13/2023 7:06 AM EST [facility] ALT 73(H) 10 - 35 U/L 07/13/2023 7:06 AM EST [facility] Blood Venous blood specimen / Unknown Venipuncture / Unknown 07/13/2023 6:08 AM EST 07/13/2023 6:34 AM EST Sarah Shabazz MD LAB BLOOD ORDERABLES [facility] [address] * (ABNORMAL) GLUCOSE METER, POINT OF CARE (07/12/2023 9:24 PM EST) Glucose Meter 284(H) 70 - 120 mg/dL 07/12/2023 9:28 PM EST [facility] HOP 66-52 Blood Whole blood specimen / Unknown 07/12/2023 9:24 PM EST 07/12/2023 9:28 PM EST Sarah Shabazz MD LAB POINT OF CARE TE ST DOCKED DEVICE UNSOLICITED RESULTS [facility] HOP 66-[address] [place] [address] * GLUCOSE METER, POINT OF CARE (07/12/2023 5:26 PM EST) Glucose Meter 94 70 - 120 mg/dL 07/12/2023 5:31 PM EST [facility] HOP 66-52 Blood Whole blood specimen / Unknown 07/12/2023 5:26 PM EST 07/12/2023 5:31 PM EST Sarah Shabazz MD LAB POINT OF CARE TE ST DOCKED DEVICE UNSOLICITED RESULTS [facility] HOP 66-[address] [place] [phone] * SURGICAL PATHOLOGY (07/12/2023 3:45 PM EST) Final Diagnosis A. Gallbladder, cholecystectomy: - Cholelithiasis. Acute and chronic cholecystitis. 07/14/2023 7:38 AM EST LABORATORY [facility] [place] Gross Description A. Gallbladder. Received in formalin with a container labeled with "Jay Mir", "[id number]", "1960" and " gallbladder". Length: 13.5 cm Diameter: 4.8 cm at the fundus. Lymph node: No lymph node identified Serosal surface: Guo-pink, congested and smooth and glistening Wall thickness: 0.3 cm There are no gross lesions Mucosa: Guo-red, congested, hemorrhagic and ulcerated Stones: 1 black, friable, nodular calculus measuring 4.0 cm in greatest dimension Commissioning Specialist sections are submitted in cassette: A1 Gross By: LY 07/14/2023 7:38 AM EST LABORATORY [facility] Sign Out Location Pathologist sign out performed at [facility] ([facility] [facility]), [address] [place] [id number]. 07/14/2023 7:38 AM EST LABORATORY [facility] [place] Photographic images and diagrams represent márquez findings in this case; they are not intended to replace a complete review of the final diagnostic report. The following statement applies to Flow Cytometry, Histology, In situ Hybridization Assays and Molecular Genetics. This test was developed and performed at [facility] and its performance characteristics determined by [employer]. It has not been cleared or approved by the U.S. Food and Drug Administration. The FDA has determined that such clearance or approval is not necessary. This test is used for clinical purposes. It should not be regarded as investigational or for research. Special stains, including histochemical stains, and studies using immunologic and BRENDEN methodology (where applicable) are performed with appropriate positive and negative control reactions. 07/14/2023 7:38 AM EST LABORATORY [facility] Tissue Specimen from gallbladder / Unknown 07/12/2023 3:45 PM EST 07/12/2023 3:59 PM EST Aniket Medrano MD LAB PATHOLO GY ORDERABLES LABORATORY [facility] [address] [place] [address] * GLUCOSE METER, POINT OF CARE (07/12/2023 11:51 AM EST) Glucose Meter 88 70 - 120 mg/dL 07/12/2023 12:00 PM EST [facility] HOP 66-52 Blood Whole blood specimen / Unknown 07/12/2023 11:51 AM EST 07/12/2023 11:59 AM EST Abdullahi Fontaine DO LAB POINT OF CARE TE ST DOCKED DEVICE UNSOLICITED RESULTS [facility] HOP 66-[address] [place] [phone] * (ABNORMAL) HEPATIC FUNCTION PANEL (07/12/2023 6:13 AM EST) Albumin 3.8 3.8 - 5.0 g/dL 07/12/2023 7:36 AM EST [facility] AST 46(H) 10 - 35 U/L 07/12/2023 7:36 AM EST [facility] Comment:Result may be falsel y elevated due to hemolysis. Alkaline Phosphatase 79 35 - 130 U/L 07/12/2023 7:36 AM EST [facility] ALT 16 10 - 35 U/L 07/12/2023 7:36 AM EST [facility] Bilirubin, Total 1.1 <=1.2 mg/dL 07/12/2023 7:36 AM EST [facility] Bilirubin, Direct 0.3 0.0 - 0.3 mg/dL 07/12/2023 7:36 AM EST [facility] Protein 7.0 6.0 - 8.3 g/dL 07/12/2023 7:36 AM EST [facility] Blood Venous blood specimen / Unknown Venipuncture / Unknown 07/12/2023 6:13 AM EST 07/12/2023 6:48 AM EST Hood Low MD LAB BLOOD ORDERABL ES Performing Organization Address City/[facility] Co de Phone Number [facility] [address] * PHOSPHORUS (07/12/2023 6:13 AM EST) Phosphorus 4.5 2.5 - 4.8 mg/dL 07/12/2023 7:36 AM EST [facility] Blood Venous blood specimen / Unknown Venipuncture / Unknown 07/12/2023 6:13 AM EST 07/12/2023 6:48 AM EST Hood Low MD LAB BLOOD ORDERABL ES Performing Organization Address [facility] Phone Number [facility]ATORY [facility] [address] [place] [address] * MAGNESIUM (07/12/2023 6:13 AM EST) Magnesium 2.0 1.5 - 2.6 mg/dL 07/12/2023 7:36 AM EST [facility] Blood Venous blood specimen / Unknown Venipuncture / Unknown 07/12/2023 6:13 AM EST 07/12/2023 6:48 AM EST Hood Low MD LAB BLOOD ORDERABL ES Performing Organization Address [facility] Phone Number [facility]ORY [facility] [address] [place] [address] * (ABNORMAL) CBC (07/12/2023 6:13 AM EST) WBC 14.06(H) 4.00 - 10.80 K/uL 07/12/2023 6:50 AM EST LABORATORY [facility] RBC 3.82 3.85 - 5.15 M/uL 07/12/2023 6:50 AM EST LABORATORY [facility] HGB 11.6(L) 12.0 - 15.3 g/dL 07/12/2023 6:50 AM EST LABORATORY [facility] HCT 35.1(L) 36.0 - 45.2 % 07/12/2023 6:50 AM EST LABORATORY [facility] MCV 91.9 81.5 - 97.5 fL 07/12/2023 6:50 AM EST LABORATORY [facility] MCH 30.4 27.0 - 34.0 pg 07/12/2023 6:50 AM EST LABORATORY [facility] MCHC 33.0 32.0 - 36.0 g/dL 07/12/2023 6:50 AM EST [facility] RDW 13.0 11.5 - 15.5 % 07/12/2023 6:50 AM EST LABORATORY [facility] PLT 203 140 - 400 K/uL 07/12/2023 6:50 AM EST [facility] MPV 10.4 6.6 - 11.1 fL 07/12/2023 6:50 AM EST LABORATORY [facility] nRBCs 0 <=0 /100 WBCs 07/12/2023 6:50 AM EST LABORATORY [facility] Blood Venous blood specimen / Unknown Venipuncture / Unknown 07/12/2023 6:13 AM EST 07/12/2023 6:48 AM EST Hood Low MD LAB BLOOD ORDERABL ES [facility] [address] * (ABNORMAL) BASIC METABOLIC PANEL (07/12/2023 6:13 AM EST) BUN 27(H) 6 - 20 mg/dL 07/12/2023 7:36 AM EST LABORATORY [facility] Creatinine 1.5(H) 0.5 - 1.0 mg/dL 07/12/2023 7:36 AM EST LABORATORY [facility] Estimated Glomerular Filtration Rate 38(L) >=60 mL/min 07/12/2023 7:36 AM EST LABORATORY [facility] Comment:eGFR is calculated b ased on the CKD-EPI 2020 equation Sodium 138 135 - 146 mmol/L 07/12/2023 7:36 AM EST [facility] Potassium 3.7 3.5 - 5.1 mmol/L 07/12/2023 7:36 AM EST [facility] Chloride 100 98 - 107 mmol/L 07/12/2023 7:36 AM EST [facility] CO2 24 22 - 32 mmol/L 07/12/2023 7:36 AM EST [facility] Anion Gap 14 7 - 15 mmol/L 07/12/2023 7:36 AM EST [facility] Glucose 93 70 - 120 mg/dL 07/12/2023 7:36 AM EST [facility] Calcium 8.8 8.4 - 10.2 mg/dL 07/12/2023 7:36 AM EST [facility] Blood Venous blood specimen / Unknown Venipuncture / Unknown 07/12/2023 6:13 AM EST 07/12/2023 6:48 AM EST Hood Low MD LAB BLOOD ORDERABL ES LAB[facility] [address] * GLUCOSE METER, POINT OF CARE (07/12/2023 5:57 AM EST) Glucose Meter 97 70 - 120 mg/dL 07/12/2023 6:06 AM EST [facility]ORY [facility] HOP 66-52 Blood Whole blood specimen / Unknown 07/12/2023 5:57 AM EST 07/12/2023 6:06 AM EST Abdullahi Fontaine DO LAB POINT OF CARE TE ST DOCKED DEVICE UNSOLICITED RESULTS [facility] HOP 66-[address] * (ABNORMAL) GLUCOSE METER, POINT OF CARE (07/11/2023 11:16 PM EST) Glucose Meter 284(H) 70 - 120 mg/dL 07/11/2023 11:27 PM EST LAB[facility]ATORY [facility] HOP 66-52 Blood Whole blood specimen / Unknown 07/11/2023 11:16 PM EST 07/11/2023 11:27 PM EST Abdullahi Fontaine DO LAB POINT OF CARE TE ST DOCKED DEVICE UNSOLICITED RESULTS Performing Organization Address City/[facility]/ZIP Co de Phone Number LAB[facility]ATORY [facility] HOP 66-[address] [place] [address] * (ABNORMAL) GLUCOSE METER, POINT OF CARE (07/11/2023 8:26 PM EST) [facility] Signature Glucose Meter 232(H) 70 - 120 mg/dL 07/11/2023 9:12 PM EST LAB[facility]ATORY [facility] HOP 66-52 Blood Whole blood specimen / Unknown 07/11/2023 8:26 PM EST 07/11/2023 9:12 PM EST Abdullahi Fontaine DO LAB POINT OF CARE TE ST DOCKED DEVICE UNSOLICITED RESULTS Performing Organization Address [facility] de Phone Number LABORATORY [facility] 66-[address] documented in this encounter Visit Diagnoses Diagnosis Acute cholecystitis- Primary Acute cholecystitis Chest pain Chest pain, unspecified Type 2 diabetes mellitus with hemoglobin A1c goal of less than 7.0% (HCC) Major depressive disorder Major depressive disorder, single episode, unspecified Poorly controlled diabetes mellitus (HCC) Type II or unspecified type diabetes mellitus without mention of complication, not stated as uncontrolled documented in this encounter Administered Medications Inactive Administered Medications - up to 3 most recent administrations Medication Order MAR Action Action Date Dose Rate Site Acetaminophen (Tylenol) tab 975 mg 975 mg, Oral, Q8H, First dose on Mon07/12/23 at 2200, Until Discontinued Given 07/14/2023 5:37 AM EST 975 mg Given 07/13/2023 9:12 PM EST 975 mg Given 07/13/2023 3:16 PM EST 975 mg buprenorphine HCl (Subutex) sublingual tab 8 mg 8 mg, Sublingual, TID(AM/NOON/HS), First dose on Mon07/11/23 at 2200, Until Discontinued Given 07/14/2023 5:37 AM EST 8 mg Given 07/13/2023 9:12 PM EST 8 mg Given 07/13/2023 11:17 AM EST 8 mg clonazePAM (KlonoPIN) tab 0.5 mg 0.5 mg, Oral, TID(AM/NOON/HS), First dose on Mon07/11/23 at 2200, Until Discontinued Given 07/14/2023 5:37 AM EST 0.5 m g Given 07/13/2023 9:12 PM EST 0.5 mg Given 07/13/2023 11:00 AM EST 0.5 mg HYDROmorphone (Dilaudid) inj 1 mg 1 mg, IV Push, ONCE, On Mon07/12/23 at 2300, For 1 dose Given 07/12/2023 11:03 PM EST 1 mg HYDROmorphone (Dilaudid) inj 1 mg 1 mg, IV Push, ONCE, On Mon07/13/23 at 1700, For 1 dose Given 07/13/2023 4:34 PM EST 1 mg insulin aspart (NovoLOG) inj Subcutaneous, Q6H, First dose (after last modification) on Mon07/11/23 at 2245, Until Discontinued, MEDIUM DOSE (Usual starting dose): Sliding Scale Correctional insulin may be given if the patient is NPO. Dose based on standard build from Insulin Calculator. Do not modify insulin doses in administration instructions! , Glucose less than 70 instructions: Obtain STAT lab blood glucose and call covering provider., Glucose 80-150 (units): 0, Glucose 151-200 (units): 2, Glucose 201-250 (units): 4, Glucose 251-300 (units): 6, Glucose greater than 300 (units): 8, Glucose greater than 300 instructions: Give suggested insulin dose and call covering provider. Given 07/11/2023 11:34 PM EST 6 Units Deltoid Right Upper insulin aspart (NovoLOG) inj Subcutaneous, W/MEALS AND HS, First dose (after last modification) on Mon07/12/23 at 1730, Until Discontinued, MEDIUM DOSE (Usual starting dose): Sliding Scale Correctional insulin may be given if the patient is NPO. Dose based on standard build from Insulin Calculator. Do not modify insulin doses in administration instructions! , Glucose less than 70 instructions: Obtain STAT lab blood glucose and call covering provider., Glucose 80-150 (units): 0, Glucose 151-200 (units): 2, Glucose 201-250 (units): 4, Glucose 251-300 (units): 6, Glucose greater than 300 (units): 8, Glucose greater than 300 instructions: Give suggested insulin dose and call covering provider. Given 07/13/2023 9:19 PM EST 2 Units Arm Right Upper Given 07/13/2023 4:37 PM EST 6 Units Ar m Left Upper Given 07/13/2023 11:57 AM EST 6 Units A rm Left Upper Insulin Glargine (Lantus) inj 20 Units 20 Units, Subcutaneous, HS, First dose on Mon07/11/23 at 2200, Until Discontinued, "IF DOSE IS HELD- NOTIFY COVERING PROVIDER!" , , On hold since Mon07/12/2023 at 1657 until manually unheld Given 07/11/2023 9:55 PM EST 20 Units Ar m Right Upper Insulin Glargine (Lantus) inj 20 Units 20 Units, Subcutaneous, HS, First dose (after last modification) on Mon07/13/23 at 0830, Until Discontinued, "IF DOSE IS HELD- NOTIFY COVERING PROVIDER!" Given 07/13/2023 9:12 PM EST 20 Units Arm Right Upper Given 07/13/2023 7:58 AM EST 20 Units Ar m Right Upper ketorolac (Toradol) 15 MG/ML inj 15 mg 15 mg, IV Push, Q6H PRN Pain, Moderate, Pain, Severe, Starting on Mon07/11/23 at 2130, Until Mon07/13/23 at 2129, For 2 days Given 07/13/2023 6:40 PM EST 15 mg Given 07/13/2023 11:00 AM EST 15 mg Given 07/12/2023 8:09 PM EST 15 mg ketorolac (Toradol) 15 MG/ML inj 15 mg 15 mg, IV Push, ONCE, On Mon07/13/23 at 2015, For 1 dose Given 07/13/2023 7:47 PM EST 15 mg ketorolac (Toradol) 15 MG/ML inj 15 mg 15 mg, IV Push, ONCE, On Mon07/14/23 at 0830, For 1 dose Given 07/14/2023 9:12 AM EST 15 mg NSS 0.9% 1,000 mL bolus infusion Intravenous, at 1,000 mL/hr Administer over 60 Minutes, Administer entire volume within 60 minutes or less., ONCE, 1 dose, On Mon07/13/23 at 1000 New Bag 07/13/2023 9:31 AM EST 1,000 mL 1000 mL/hr NSS 0.9% 1,000 mL bolus infusion Intravenous, at 1,000 mL/hr Administer over 60 Minutes, Administer entire volume within 60 minutes or less., ONCE, 1 dose, On Mon07/14/23 at 0130 New Bag 07/14/2023 12:57 AM EST 1,000 mL 1000 mL/hr NSS 0.9% 500 mL bolus infusion Intravenous, at 500 mL/hr Administer over 60 Minutes, Administer entire volume within 60 minutes or less., ONCE, 1 dose, On Mon07/14/23 at 0000 New Bag 07/14/2023 12:43 AM EST 500 mL 500 mL/hr NSS infusion Intravenous, at 75 mL/hr, CONTINUOUS, Starting on Mon07/11/23 at 2200, Until Mon07/12/23 at 1618 Rate Verify 07/12/2023 1:33 PM EST 75 mL/hr Rate Verify 07/12/2023 10:09 AM EST 75 mL/hr Rate Verify 07/12/2023 10:06 AM EST 75 mL/hr NSS infusion Intravenous, at 75 mL/hr, CONTINUOUS, Starting on Mon07/12/23 at 1700, Until Mon07/13/23 at 0223 New Bag 07/12/2023 5:13 PM EST 75 mL/hr NSS infusion Intravenous, at 100 mL/hr, CONTINUOUS, Starting on Mon07/14/23 at 0100, Until Mon07/14/23 at 0559 Rate Verify 07/14/2023 4:29 AM EST 100 mL/hr Restarted 07/14/2023 1:58 AM EST 100 mL/hr Rate Verify 07/14/2023 12:55 AM EST 100 mL/hr ondansetron (Zofran) inj 4 mg 4 mg, IV Push, Q6H PRN Nausea, Starting on Mon07/11/23 at 2114, Until Mon07/14/23 at 1542 Given 07/14/2023 4:31 AM EST 4 mg Piperacillin-Tazobactam (Zosyn) 4.5 g in 100 mL NSS ivpb (FOUR hour infusion) IV Piggyback, 4.5 g, Q8HNOW, 15 doses, First dose on Mon07/12/23 at 0230, Last dose on Mon07/16/23 at 1830, Administer over 4 Hours, at 25 mL/hr Rate Verify 07/12/2023 1:33 PM EST 1.125 g/hr 25 mL/hr Restarted 07/12/2023 1:17 PM EST 1.125 g/hr 25 mL/hr Restarted 07/12/2023 11:28 AM EST 1.125 g/hr 25 mL/hr Piperacillin-Tazobactam (Zosyn) 4.5 g in 100 mL NSS ivpb (FOUR hour infusion) IV Piggyback, 4.5 g, Q8HNOW, 3 doses, First dose (after last modification) on Mon07/12/23 at 1930, Last dose on Mon07/13/23 at 1130, Administer over 4 Hours, at 25 mL/hr Restarted 07/13/2023 11:20 AM EST 1.125 g/hr 25 m L/hr Rate Verify 07/13/2023 11:06 AM EST 1.125 g/hr 25 mL/hr New Bag 07/13/2023 10:59 AM EST 4.5 g 25 mL/hr Piperacillin-Tazobactam (Zosyn) 4.5 g in 100 mL NSS ivpb (HALF hour infusion) IV Piggyback, 4.5 g, ONCE, 1 dose, On Mon07/11/23 at 2200, Administer over 30 Minutes New Bag 07/11/2023 9:49 PM EST 4.5 g 200 mL/hr tiZANidine (Zanaflex) 2 mg tab 2 mg, Oral, Q8H, First dose on Mon07/12/23 at 2200, Until Discontinued Given 07/14/2023 5:37 AM EST 2 mg Given 07/13/2023 9:12 PM EST 2 mg Given 07/13/2023 3:16 PM EST 2 mg documented in this encounter Active and Recently Administered Medications Times are shown in EST. Scheduled Medication Order 07/12/2023 07/13/2023 07/14/2023 Acetaminophen (Tylenol) tab 975 mg 975 mg, Oral, Q8H, First dose on Mon07/12/23 at 2200, Until Discontinued 2150 (Given - Provider: Sarbjit Roberson RN) 451 (Given - Provider: Sarbjit Roberson RN)151 (Given - Provider: Dayton Navas LPN)2111 (Given - Provider: Aleyda Lofton RN) 0537 (Given - Provider: Aleyda Lofton RN) buprenorphine HCl (Subutex) sublingual tab 8 mg 8 mg, Sublingual, TID(AM/NOON/HS), First dose on Mon07/11/23 at 2200, Until Discontinued 611 (Given - Provider: Giovanna Mason LPN)120 (Given - Provider: Imani Davis RN)2150 (Given - Provider: Sarbjit Roberson RN) 045 (Given - Provider: Sarbjit Roberson RN)111 (Given - Provider: Miranda Tinoco RN)2111 (Given - Provider: Aleyda Lofton RN) 0537 (Given - Provider: Aleyda Lofton RN) clonazePAM (KlonoPIN) tab 0.5 mg 0.5 mg, Oral, TID(AM/NOON/HS), First dose on Mon07/11/23 at 2200, Until Discontinued 611 (Given - Provider: Giovanna Mason LPN)1201 (Given - Provider: Imani Davis RN)2150 (Given - Provider: Sarbjit Roberson RN) 045 (Given - Provider: Sarbjit Roberson RN)1100 (Given - Provider: Miranda Tinoco RN)2111 (Given - Provider: Aleyda Lofton RN) 0537 (Given - Provider: Aleyda Lofton RN) HYDROmorphone (Dilaudid) inj 1 mg (COMPLETED) 1 mg, IV Push, ONCE, On Mon07/12/23 at 2300, For 1 dose 2303 (Given - Provider: Sarbjit Roberson RN) HYDROmorphone (Dilaudid) inj 1 mg (COMPLETED) 1 mg, IV Push, ONCE, On Mon07/13/23 at 1700, For 1 dose 1634 (Given - Provider: Miranda Tinoco RN) insulin aspart (NovoLOG) inj Subcutaneous, W/MEALS AND HS, First dose (after last modification) on Mon07/12/23 at 1730, Until Discontinued, MEDIUM DOSE (Usual starting dose): Sliding Scale Correctional insulin may be given if the patient is NPO. Dose based on standard build from Insulin Calculator. Do not modify insulin doses in administration instructions! , Glucose less than 70 instructions: Obtain STAT lab blood glucose and call covering provider., Glucose 80-150 (units): 0, Glucose 151-200 (units): 2, Glucose 201-250 (units): 4, Glucose 251-300 (units): 6, Glucose greater than 300 (units): 8, Glucose greater than 300 instructions: Give suggested insulin dose and call covering provider. 1730 (Not Given - Provider: Imani Davis RN - Reason: Parameter(s) Not Met)2150 (Given - Provider: Sarbjit Roberson RN) 0758 (Given - Provider: Dayton Navas LPN)1157 (Given - Provider: Dayton Navas LPN)1637 (Given - Provider: Miranda Tinoco RN)211 (Given - Provider: Aleyda Lofton RN) 0800 (Not Given - Provider: Yumiko Brock RN - Reason: Parameter(s) Not Met) Insulin Glargine (Lantus) inj 20 Units 20 Units, Subcutaneous, HS, First dose (after last modification) on Mon07/13/23 at 0830, Until Discontinued, "IF DOSE IS HELD- NOTIFY COVERING PROVIDER!" 0758 (Given - Provider: Dayton Navas LPN)2111 (Given - Provider: Aleyda Lofton RN) ketorolac (Toradol) 15 MG/ML inj 15 mg (COMPLETED) 15 mg, IV Push, ONCE, On Mon07/13/23 at 2015, For 1 dose 1947 (Given - Provider: Aleyda Lofton RN) ketorolac (Toradol) 15 MG/ML inj 15 mg (COMPLETED) 15 mg, IV Push, ONCE, On Mon07/14/23 at 0830, For 1 dose 0912 (Given - Provider: Yumiko Brock RN) NSS 0.9% 1,000 mL bolus infusion (COMPLETED) Intravenous, at 1,000 mL/hr Administer over 60 Minutes, Administer entire volume within 60 minutes or less., ONCE, 1 dose, On Melissa 07/13/23 at 1000 0931 (New Bag - Provider: Dayton Navas LPN)1028 (Stopped - Provider: Miranda Tinoco, EUFEMIA) NSS 0.9% 1,000 mL bolus infusion (COMPLETED) Intravenous, at 1,000 mL/hr Administer over 60 Minutes, Administer entire volume within 60 minutes or less., ONCE, 1 dose, On Mon07/14/23 at 0130 0057 (New Bag - Provider: Aleyda Lofton, EUFEMIA)0158 (Stopped - Provider: Aleyda Lofton, RN) NSS 0.9% 500 mL bolus infusion (COMPLETED) Intravenous, at 500 mL/hr Administer over 60 Minutes, Administer entire volume within 60 minutes or less., ONCE, 1 dose, On Mon07/14/23 at 0000 0043 (New Bag - Provider: Aleyda Lofton, EUFEMIA) Piperacillin-Tazobactam (Zosyn) 4.5 g in 100 mL NSS ivpb (FOUR hour infusion) (CANCELED) IV Piggyback, 4.5 g, Q8HNOW, 15 doses, First dose on Mon07/12/23 at 0230, Last dose on Mon07/16/23 at 1830, Administer over 4 Hours, at 25 mL/hr 0334 (New Bag - Provider: Marilu Mandujano RN)0341 (Paused - Provider: Marilu Mandujano RN)0345 (Restarted - Provider: Marilu Mandujano RN)0429 (Rate Verify - Provider: Marilu Mandujano RN)0703 (Paused - Provider: Imani Davis RN)0711 (Restarted - Provider: Imani Davis RN)0718 (Paused - Provider: Imani Davis, RN)0723 (Restarted - Provider: Imani Davis, RN)0751 (Stopped - Provider: Imani Davis, RN)0955 (New Bag - Provider: Imani Davis RN)1006 (Rate Verify - Provider: Imani Davis RN)1009 (Rate Verify - Provider: Imani Davis, RN)1118 (Paused - Provider: Imani Davis, RN)1128 (Restarted - Provider: Imani Davis RN)1314 (Paused - Provider: Imani Davis RN)1317 (Restarted - Provider: Imani Davis RN)1333 (Rate Verify - Provider: Imani Davis RN) Piperacillin-Tazobactam (Zosyn) 4.5 g in 100 mL NSS ivpb (FOUR hour infusion) (COMPLETED) IV Piggyback, 4.5 g, Q8HNOW, 3 doses, First dose (after last modification) on Mon07/12/23 at 1930, Last dose on Mon07/13/23 at 1130, Administer over 4 Hours, at 25 mL/hr 1959 (New Bag - Provider: Sarbjit Roberson RN)1999 (Rate Verify - Provider: Miranda Tinoco RN)2004 (Rate Verify - Provider: Miranda Tinoco RN)2010 (Rate Verify - Provider: Miranda Tinoco RN) 0002 (Stopped - Provider: Miranda Tinoco RN)0235 (New Bag - Provider: Sarbjit Roberson RN)0235 (Rate Verify - Provider: Miranda Tinoco RN)0635 (Stopped - Provider: Miranda Tinoco RN)1059 (New Bag - Provider: Miranda Tinoco RN)1106 (Rate Verify - Provider: Miranda Tinoco RN)1116 (Paused - Provider: Dayton Navas LPN)1120 (Restarted - Provider: Dayton Navas LPN)1503 (Stopped - Provider: Dayton Navas LPN) tiZANidine (Zanaflex) 2 mg tab 2 mg, Oral, Q8H, First dose on Mon07/12/23 at 2200, Until Discontinued 2150 (Given - Provider: Sarbjit Roberson RN) 0452 (Given - Provider: Sarbjit Roberson RN)1516 (Given - Provider: Dayton Navas LPN)2112 (Given - Provider: Aleyda Lofton RN) 0537 (Given - Provider: Aleyda Lofton RN) Continuous Medication Order 07/12/2023 07/13/2023 07/14/2023 NSS infusion (CANCELED) Intravenous, at 75 mL/hr, CONTINUOUS, Starting on Mon07/11/23 at 2200, Until Mon07/12/23 at 1618 0315 (Rate Verify - Provider: Marilu Mandujano, EUFEMIA)0429 (Rate Verify - Provider: Marilu Mandujano, RN)0928 (Rate Verify - Provider: Imani Davis, RN)0952 (Stopped - Provider: Imani Davis RN)0953 (New Bag - Provider: Imani Davis RN)1006 (Rate Verify - Provider: Imani Davis, RN)1009 (Rate Verify - Provider: Imani Davis, RN)1333 (Rate Verify - Provider: Imani Davis, RN) NSS infusion (CANCELED) Intravenous, at 75 mL/hr, CONTINUOUS, Starting on Mon07/12/23 at 1700, Until Mon07/13/23 at 0223 1713 (New Bag - Provider: Imani Davis RN) 0223 (Stopped - Provider: Sarbjit Roberson RN) NSS infusion Intravenous, at 100 mL/hr, CONTINUOUS, Starting on Mon07/14/23 at 0100, Until Mon07/14/23 at 0559 0045 (New Bag - Provider: Aleyda Lofton RN)0055 (Rate Verify - Provider: Aleyda Lofton RN)0057 (Paused - Provider: Aleyda Lofton RN)0158 (Restarted - Provider: Aleyda Lofton RN)0429 (Rate Verify - Provider: Aleyda Lofton RN)0540 (Stopped - Provider: Yumiko Brock RN) PRN Medication Order 07/12/2023 07/13/2023 07/14/2023 bupivacaine HCl 60 mL, sodium chloride 0.9 % 60 mL inj (CANCELED) ONCE PRN INTRA PROCEDURE, Starting on Mon07/12/23 at 1506, Until Mon07/12/23 at 1616, Intra-Op 1506 (Given - Provider: Aniket Medrano MD - Comment: PRN intra-op to trocar sites) dextrose 50 % inj 25 mL 25 mL, IV Push, PRN Hypoglycemia, Other, For blood glucose 54 - 69 mg/dL or 70 - 100 mg/dL with symptoms AND patient is unresponsive, NPO, OR unable to swallow, Starting on Mon07/11/23 at 2113, Until Mon07/14/23 at 1542, Administer IV. Recheck blood glucose after 15 minutes. Notify provider. dextrose 50 % inj 50 mL 50 mL, IV Push, PRN Hypoglycemia, Other, For blood glucose below 54 mg/dL AND patient unresponsive, NPO, OR unable to swallow, Starting on Mon07/11/23 at 2112, Until Mon07/14/23 at 1542, Administer IV. Recheck blood glucose in 15 minutes. Notify provider. glucagon (Glucagen) inj 1 mg 1 mg, Intramuscular, PRN Hypoglycemia, Other, If patient is unresponsive, or NPO and has no IV access, Starting on Mon07/11/23 at 2112, Until Mon07/14/23 at 1542, NPO and no IV access with either 1) blood glucose less than 100 mg/dL and symptomatic OR 2) blood glucose less than 70 mg/dL and asymptomatic Glucose (Glutose 15) 40 % gel 15 g of glucose 15 g of glucose, Oral, PRN Hypoglycemia (low sugar), Other, For blood glucose 54 - 69 mg/dL or 70 - 100 mg/dL with symptoms AND patient alert WITH difficulty chewing/swallowing, Starting on Mon07/11/23 at 2112, Until Mon07/14/23 at 1542, Administer gel. Recheck blood glucose after 15 minutes. Notify provider. 37.5 gram tube = 15 grams glucose = 1 each Glucose (Glutose 15) 40 % gel 30 g of glucose 30 g of glucose, Oral, PRN Hypoglycemia (low sugar), Other, For blood glucose below 54 mg/dL AND patient alert WITH difficulty chewing/swallowing, Starting on Mon07/11/23 at 2112, Until Mon07/14/23 at 1542, Administer gel. Recheck blood glucose after 15 minutes. Notify provider. 37.5 gram tube = 15 grams glucose = 1 each glucose chew tab 16 g 16 g, Oral, PRN Hypoglycemia, Other, For blood glucose 54 - 69 mg/dL or 70 - 100 mg/dL with symptoms and patient alert without difficulty chewing/swallowing., Starting on Mon07/11/23 at 2112, Until Mon07/14/23 at 1542 ketorolac (Toradol) 15 MG/ML inj 15 mg () 15 mg, IV Push, Q6H PRN Pain, Moderate, Pain, Severe, Starting on Mon07/11/23 at 2130, Until Mon07/13/23 at 2129, For 2 days 1137 (Given - Provider: Imani Davis, RN)2009 (Given - Provider: Sarbjit Roberson, RN) 1100 (Given - Provider: Miranda Tinoco, RN)1840 (Given - Provider: Miranda Tinoco, RN) ondansetron (Zofran) inj 4 mg 4 mg, IV Push, Q6H PRN Nausea, Starting on Mon07/11/23 at 2114, Until Mon07/14/23 at 1542 0431 (Given - Provider: Aleyda Lofton, EUFEMIA) sodium chloride 0.9 % flush/inj 3 mL 3 mL, IV Push, PRN Other, Line Patency, Starting on Mon07/11/23 at 2113, Until Mon07/14/23 at 1542, Do not flush if lock, PICC, or central line not in place, IV infusing or unable to flush sodium chloride IR 0.9 % irrigation (CANCELED) ONCE PRN INTRA PROCEDURE, Starting on Mon07/12/23 at 1507, Until Mon07/12/23 at 1616, Intra-Op 1507 (Given - Provider: Aniket Medrano MD - Comment: abdomen- PRN intra-op) documented in this encounter Advance Directives Latest Code Status on File Code Status Date Activated Date Inactivated Comments Full Code 07/11/2023 9:15 PM 07/14/2023 3:47 PM This o rder reflects the patients wishes and were consensually agreed upon. Question Answer Comments Discussion of Advance Directives occurred with: Patient Does the patient have a Living Will? No Does the patient have Health Care Power of Prepress Supervisor? No Code Status History Code Status Date Activated Date Inactivated Comments Full Code 04/17/2022 8:57 PM 04/19/2022 9:06 PM Thi s order reflects the patients wishes and were consensually agreed upon. Question Answer Comments Discussion of Advance Directives occurred with: Patient Does the patient have a Living Will? No Does the patient have Health Care Power of Prepress Supervisor? No Care Teams Oncology Pharmacist Relationship Specialty Start Date End Date Jacquelyn Mckinney MD [address] [place] [id number] PCP - General Family Medicine 04/17/22 documented as of this encounter
--- OUTSIDE RECORDS SUMMARY | 2023-07-18 02:27 | External Medical Summary | Summary of Care ---
Author Name Unknown Organization [facility] Address [address] [place] [address] Phone [phone] Care Team Providers Care Classification Officer Name Role Phone Jacquelyn Mckinney MD Primary Care Provider [phone] Reason for Visit * Reason Onset Date Comments Appointment 07/15/2023 Encounter Details Date Type Department Care Team ([facility] st Contact Info) Description 07/15/2023 Telephone [facility] [address] [place] [address] Jacquelyn Mckinney MD [address] [place] [address] Appointment Allergies No known active allergiesdocumented as of this encounter (statuses as of 07/17/2023) Medications Medication Sig Dispensed Refills Start Date End Date Status INSULIN SYRINGE 1CC MISCIndications:DM type 1, not at goal ([facility]) for daily insulin injections 1 box 5 [...] for 5 days. 15 Tablet 0 07/14/2023 07/19/2023 Active Roller Walker Use as directed 1 Each 0 07/14/2023 Active documented as of this encounter (statuses as of 07/17/2023) Active Problems Problem Noted Date Diagnosed Date [...] as of this encounter (statuses as of 07/17/2023) Resolved Problems Problem Noted Date Diagnosed Date Resolved Date Acute cholecystitis 07/11/2023 07/14/19 24 Chest pain 04/17/2022 04/19/2022 Abdominal pain 04/17/2022 04/19/2022 documented as of this encounter (statuses as of 07/17/2023) Social History Tobacco Use Types Packs/Day Years Used Date Smoking Tobacco: Never Smokeless Tobacco: Never Alcohol Use Standard Drinks/Week Comments Never 0 (1 standard drink = 0.6 oz pur e alcohol) Sex and Gender Information Value Date Recorded Sex Assigned at Not on file Gender Identity Not on file Sexual Orientation Not on file Job Start Date Occupation Industry Not on file Not on file Not on file documented as of this encounter Functional Status Functional Status Response [...] No 07/11/2023 documented as of this encounter Miscellaneous Notes * Telephone Encounter - Beth Sky LPN - 07/17/2023 8:48 AM EST I called patient and spoke to her about her pain from having her Gallbladder removed.I told her since she has not been seen in this office before she would need to either schedule an appointment witha provider in our office or call her PCP at . She asked to please be scheduled to see a provider here so I sent her to the front office staff to help her with scheduling an appt with a provider to establish care. * Telephone Encounter - Janet Mathias OSA - 07/15/2023 3:16 PM EST Patient is requesting pain meds from a recent surgery and stated that the hospital never sent her home with any. She is in excruciating pain and is asking for a prescript to be sent to [facility] documented in this encounter Plan of Treatment Upcoming Encounters Date Type Department Care Team ([facility] st Contact Info) Description 07/18/2023 11:00 AM EST Office Visit Family Practice [facility] [address] [place] [address] Jane Cagle MD [address] [place] [phone] 07/21/2023 9:00 AM EST Office Visit General Surgery, [facility] [address] [place] [address] Aniket Medrano MD [address] [place], [place] [id number] Health Maintenance Due Date Last Done Comments [...] Not on filedocumented as of this encounter Advance Directives Latest Code Status on File Code Status Date Activated Date Inactivated Comments Full Code 07/11/2023 9:15 PM 07/14/2023 3:47 PM This o rder reflects the patients wishes and were consensually agreed upon. Question Answer Comments Discussion of Advance Directives occurred with: Patient Does the patient have a Living Will? No Does the patient have Health Care Power of Assembly Line Brazer? No Code Status History Code Status Date Activated Date Inactivated Comments Full Code 04/17/2022 8:57 PM 04/19/2022 9:06 PM Thi s order reflects the patients wishes and were consensually agreed upon. Question Answer Comments Discussion of Advance Directives occurred with: Patient Does the patient have a Living Will? No Does the patient have Health Care Power of Assembly Line Brazer? No Care Teams Classification Officer Relationship Specialty Start Date End Date Jacquelyn Mckinney MD [address] [place] [phone] PCP - General Family Medicine 04/17/22 documented as of this encounter
--- OUTSIDE RECORDS SUMMARY | 2023-07-18 02:27 | External Medical Summary | Summary of Care ---
Author Name Unknown Organization [facility] Address [address] [place] [address] Phone [phone] Care Team Providers Care Learning Disabilities Specialist Name Role Phone Jacquelyn Mckinney MD Primary Care Provider [phone] Reason for Visit * Reason Onset Date Comments Appointment 07/15/2023 Encounter Details Date Type Department Care Team ([facility] st Contact Info) Description 07/15/2023 Telephone [facility] [address] [place] [address] Jacquelyn Mckinney MD [address] [place] [address] Appointment Allergies No known active allergiesdocumented as of this encounter (statuses as of 07/17/2023) Medications Medication Sig Dispensed Refills Start Date End Date Status INSULIN SYRINGE 1CC MISCIndications:DM type 1, not at goal ([facility]) for daily insulin injections 1 box 5 [...] for a prescript to be sent to [facility] documented in this encounter Plan of Treatment Upcoming Encounters Date Type Department Care Team ([facility] st Contact Info) Description 07/18/2023 11:00 AM EST Office Visit Family Practice [facility] [address] [place] [address] Jane Cagle MD [address] [place] [phone] 07/21/2023 9:00 AM EST Office Visit General Surgery, [facility] [address] [place] [address] Aniket Medrano MD [address] [place], [place] [phone] Health Maintenance Due Date Last Done Comments [...] the patient have Health Care Power of Director Cardiac? No Code Status History Code Status Date Activated Date Inactivated Comments Full Code 04/17/2022 8:57 PM 04/19/2022 9:06 PM Thi s order reflects the patients wishes and were consensually agreed upon. Question Answer Comments Discussion of Advance Directives occurred with: Patient Does the patient have a Living Will? No Does the patient have Health Care Power of Director Cardiac? No Care Teams Learning Disabilities Specialist Relationship Specialty Start Date End Date Jacquelyn Mckinney MD [address] [place] [phone] PCP - General Family Medicine 04/17/22 documented as of this encounter
--- OUTSIDE RECORDS SUMMARY | 2023-07-18 02:27 | External Medical Summary ---
Author Name Unknown Address Unknown Organization : Laboratory Report Ordering Provider Test Date Status CESAR CHADWICK 07/14/2023 10:43:00 Final Observation Date Value Abnormality Reference (Units ) Status WBC, Total 07/14/2023 10:43:00 7.10 4.00-10.80 (K/uL) Final RBC 07/14/2023 10:43:00 3.15 3.85-5.15 (M/uL) Final Hemoglobin 07/14/2023 10:43:00 9.5 Below low normal 12.0-15.3 (g/dL) Final HCT 07/14/2023 10:43:00 28.8 Below low normal 36.0-45.2 (%) Final MCV 07/14/2023 10:43:00 91.4 81.5-97.5 (fL) Final MCH 07/14/2023 10:43:00 30.2 27.0-34.0 (pg) Final MCHC 07/14/2023 10:43:00 33.0 32.0-36.0 (g/dL) Final RDW 07/14/2023 10:43:00 12.9 11.5-15.5 (%) Final Platelets 07/14/2023 10:43:00 153 140-400 (K/uL) Final MPV 07/14/2023 10:43:00 10.8 6.6-11.1 (fL) Final Nucleated erythrocytes/100 leukocytes [Ratio] in Blood by Automated count 07/14/2023 10:43:00 0 <=0 (/100 WBCs) Final Performing Location
--- OUTSIDE RECORDS SUMMARY | 2023-07-18 02:27 | External Medical Summary | Summary of Care ---
Author Name Unknown Organization [facility] Address [address] [place] [address] Phone [phone] Care Team Providers Care Clinical Training Specialist Name Role Phone Jacquelyn Mckinney MD Primary Care Provider [phone] Reason for Visit * Reason Onset Date Comments Post-Op 07/14/2023 Encounter Details Date Type Department Care Team (Late st Contact Info) Description 07/14/2023 10:00 AM EST Scheduled Telephone General Surgery, [facility] [address] [place], [place] [phone] Nurse Mitchell Follow Up Phone Call [address] [place] [address] Arrived Allergies No known active allergiesdocumented as of this encounter (statuses as of 07/14/2023) Medications Medication Sig Dispensed Refills Start Date End Date Status Insulin Glargine 100 UNIT/ML Subcutaneous Solution (Lantus) Inject 20 Units under the skin at bedtime. 0 07/14/2023 Active tiZANidine HCl 2 MG Oral Tablet (Zanaflex) Take 1 Tablet by mouth in the morning and 1 Tablet at noon and 1 Tablet before bedtime. Do all this for 5 days. 15 Tablet 0 07/14/2023 Active INSULIN SYRINGE 1CC MISCIndications:DM type 1, not at goal ([facility]) for daily insulin injections 1 box 5 01/16/2004 Suspended Additional Information FREESTYLE TEST STRIPS STRPIndications:DM type 2, goal A1c below 7 bs check tid 50 5 04/01/2004 Suspended Additional Information LANCET DEVICE MISCIndications:DM type 1, not at goal ([facility]) BS checks TID 1 box 3 04/26/2004 Suspended Additional Information Insulin Aspart 100 UNIT/ML Injection Solution (NovoLOG) Inject 10 Units under the skin 2 times a day in the morning and at noon. 0 Suspended Melatonin 10 MG Oral Capsule Take 1 Capsule by mouth at bedtime. 0 Suspended clonazePAM 0.5 MG Oral Tablet (KlonoPIN) Take 1 Tablet by mouth in the morning and 1 Tablet at noon and 1 Tablet before bedtime. 0 Suspended Buprenorphine HCl 8 MG Sublingual Tablet Sublingual (Subutex) Place 1 Tablet under the tongue in the morning. 2 1/2 tablet daily . 0 Suspended Insulin Aspart 100 UNIT/ML Injection Solution (NovoLOG) Inject 10 Units under the skin daily with dinner. 0 Suspended Venlafaxine HCl ER 75 MG Oral Capsule Extended Release 24 Hour (Effexor XR) Take by mouth 112.5 mg in the morning. 0 Suspended documented as of this encounter (statuses as [...] encounter Miscellaneous Notes * Telephone Encounter - Suzie Lloyd RMA - 07/14/2023 10:04 AM EST Follow up phone call made to patient. Mailbox was full. Unable to leave a message. Next Visit: 07/21/2023 documented in this encounter Plan of Treatment Upcoming Encounters Date Type Department Care Team (Late st Contact Info) Description 07/21/2023 9:00 AM EST Office Visit General Surgery, [facility] [address] [place] [address] Aniket Medrano MD [address] [place] [address] Health Maintenance Due Date Last Done Comments [...] Additional history exists Lipid Panel 03/21/2027 03/21/2022, 2003, 05/09/2003, Additional history exists HIV Screening Completed [...] Inactivated Comments Full Code 07/11/2023 9:15 PM This order reflects the patients wishes and were consensually agreed upon. Question Answer Comments Discussion of Advance Directives occurred with: Patient Does the patient have a Living Will? No Does the patient have Health Care Power of Oceanologist? No Code Status History Code Status Date Activated Date Inactivated Comments Full Code 04/17/2022 8:57 PM 04/19/2022 9:06 PM Thi s order reflects the patients wishes and were consensually agreed upon. Question Answer Comments Discussion of Advance Directives occurred with: Patient Does the patient have a Living Will? No Does the patient have Health Care Power of Oceanologist? No Care Teams Clinical Training Specialist Relationship Specialty Start Date End Date Jacquelyn Mckinney MD [address] [place] [phone] PCP - General Family Medicine 04/17/22 documented as of this encounter
--- OUTSIDE RECORDS SUMMARY | 2023-07-18 02:27 | External Medical Summary ---
Author Name Unknown Address Unknown Organization : Laboratory Report Ordering Provider Test Date Status TEAGAN GIL 07/14/2023 02:10:41 Final Observation Date Value Abnormality Reference (Units ) Status WBC, Total 07/14/2023 02:10:41 5.33 4.00-10.80 (K/uL) Final RBC 07/14/2023 02:10:41 2.33 3.85-5.15 (M/uL) Final Hemoglobin 07/14/2023 02:10:41 7.2 Below low normal 12.0-15.3 (g/dL) Final HCT 07/14/2023 02:10:41 21.9 Below low normal 36.0-45.2 (%) Final MCV 07/14/2023 02:10:41 94.0 81.5-97.5 (fL) Final MCH 07/14/2023 02:10:41 30.9 27.0-34.0 (pg) Final MCHC 07/14/2023 02:10:41 32.9 32.0-36.0 (g/dL) Final RDW 07/14/2023 02:10:41 13.1 11.5-15.5 (%) Final Platelets 07/14/2023 02:10:41 100 Below low normal 140-400 (K/uL) Final MPV 07/14/2023 02:10:41 11.5 6.6-11.1 (fL) Final Nucleated erythrocytes/100 leukocytes [Ratio] in Blood by Automated count 07/14/2023 02:10:41 0 <=0 (/100 WBCs) Final Performing Location
--- OUTSIDE RECORDS SUMMARY | 2023-07-18 02:28 | External Medical Summary ---
Author Name Unknown Address Unknown Organization : Laboratory Report Ordering Provider Test Date Status CESAR CHADWICK 07/12/2023 21:24:37 Final Observation Date Value Abnormality Reference (Units ) Status Glucose Point of Care 07/12/2023 21:24:37 284 Above high normal 70-120 (mg/dL) Final Performing Location
--- OUTSIDE RECORDS SUMMARY | 2023-07-18 02:28 | External Medical Summary | Summary of Care ---
Author Name Unknown Organization [facility] Address [address] [place] [address] Phone [phone] Care Team Providers Care Ship'S Pilot Name Role Phone Jacquelyn Mckinney MD Primary Care Provider [phone] Reason for Visit * Reason Comments Abdominal Pain * Auth/Cert Specialty Diagnoses / Procedures Referred By Nicole varela Referred To Contact Referral ID Status Reason Start Date Expiration Date Visits Re quested Visits Authorized [id number] Encounter Details Date Type Department Care Team (Late st Contact Info) Description 07/11/2023 8:07 AM EST - 07/11/2023 6:16 PM EST Emergency [facility] Emergency Department (SH) [address] [place] [address] Shelly Huddleston, DO [address] [place] [address] Acute cholecystitis (Primary Dx); Screening for cardiovascular condition; Abdominal pain Discharge Disposition: Home - Self Care Allergies No known active allergiesdocumented as of this encounter (statuses as of 07/12/2023) Medications Medication Sig Dispensed Refills Start Date End Date Status INSULIN SYRINGE 1CC MISCIndications:DM type 1, not at goal ([facility]) for daily insulin injections 1 box 5 [...] 112.5 mg in the morning. 0 Suspended Insulin Glargine 100 UNIT/ML Subcutaneous Solution (Lantus) Inject under the skin 22 Units before bedtime. 1 Each 12 04/19/2022 Suspended Additional Information documented as of this encounter (statuses as of 07/12/2023) Active Problems Problem Noted Date Diagnosed Date Acute cholecystitis 07/11/2023 Poorly controlled diabetes mellitus 04/19/2022 Diabetic ketoacidosis [...] as of this encounter (statuses as of 07/12/2023) Resolved Problems Problem Noted Date Diagnosed Date Resolved Date Chest pain 04/17/2022 04/19/2022 Abdominal pain 04/17/2022 04/19/2022 documented as of this encounter (statuses as of 07/12/2023) Social History Tobacco Use Types Packs/Day Years [...] Sign Reading Time Taken Comments Blood Pressure 132/53 07/11/2023 6:00 PM EST Pulse 75 07/11/2023 6:00 PM EST Temperature 37.4 C (99.3 F) 07/11/2023 8:04 AM ES T Respiratory Rate 16 07/11/2023 6:00 PM EST Oxygen Saturation 91% 07/11/2023 6:00 PM EST Inhaled Oxygen Concentration - - Weight 56.7 kg (125 lb) 07/11/2023 8:04 AM EST Height - - Body Mass Index 19.01 04/18/2022 11:00 AM EDT documented in this encounter Functional Status Functional Status Response Date of Assess ment Are you deaf or do you have serious difficulty h earing? No 04/17/2022 Are you blind or do you have serious difficulty seeing, even when wearing glasses? No 04/17/2022 Do you have serious difficul ty walking or climbing stairs? (5 years old or older) No 04/17/2022 Do you have difficulty dress ing or bathing? (5 years old or older) No 04/17/2022 Because of a physical, menta l, or emotional condition, do you have difficulty doing errands alone such as visiting a doctor s office or shopping? (15 years old or older) No 04/17/20 Cognitive Status Response Date of Assessm ent Because of a physical, menta l, or emotional condition, do you have serious difficulty concentrating, remembering, or making decisions? (5 years old or older) No 04/17/2022 documented as of this encounter ED Notes * Shelly Huddleston DO - 07/11/2023 6:26 PM EST HISTORY OF PRESENT ILLNESS Jay Mir is a 62 year old female who presents to the ED for evaluation of Abdominal Pain. The patient was seen at 07/11/23 0804. Patient is here complaining of abdominal pain. It is right upper quadrant abdominal pain. She has nausea and vomiting. Patient also states she has pain in her chest. She denies fever chills. She has no other complaints at this time. Review of Systems Constitutional: Negative for activity change, chills and fever. HENT: Negative for ear pain and sore throat. Eyes: Negative for pain and redness. Respiratory: Negative for cough, shortness of breath and wheezing. Cardiovascular: Positive for chest pain. Negative for leg swelling. Gastrointestinal: Positive for abdominal pain, nausea and vomiting. Genitourinary: Negative for dysuria and hematuria. Musculoskeletal: Negative for back pain and neck pain. Skin: Negative for rash and wound. Neurological: Negative for syncope and headaches. Psychiatric/Behavioral: Negative for self-injury and suicidal ideas. The patient's allergies, past history, and medications were reviewed. PHYSICAL EXAM Initial Vitals (see all): BP 198/61 | Pulse 72 | Resp 18 | Temp 99.3 | O2 100 %, Room Air, None | Weight 56.7 kg | Height 172.7 cm | Initial Pain Assessment (see all): 10 (severe pain)/10, Aching ([facility] Adult Scale 0-10) Physical Exam Vitals and nursing note reviewed. Constitutional: Appearance: Normal appearance. HENT: Head: Normocephalic and atraumatic. Nose: Nose normal. Mouth/Throat: Mouth: Mucous membranes are moist. Eyes: Extraocular Movements: Extraocular movements intact. Cardiovascular: Rate and Rhythm: Normal rate and regular rhythm. Pulses: Normal pulses. Heart sounds: Normal heart sounds. No murmur heard. Pulmonary: Effort: Pulmonary effort is normal. Breath sounds: Normal breath sounds. No wheezing or rhonchi. Abdominal: General: Abdomen is flat. Bowel sounds are normal. Palpations: Abdomen is soft. Tenderness: There is abdominal tenderness in the right upper quadrant. There is no guarding or rebound. Musculoskeletal: General: Normal range of motion. Cervical back: Normal range of motion and neck supple. Skin: General: Skin is warm and dry. Neurological: General: No focal deficit present. Mental Status: She is alert and oriented to person, place, and time. Psychiatric: Mood and Affect: Mood normal. Behavior: Behavior normal. PROCEDURES AND TREATMENTS ED Orders | ED Results MEDICAL DECISION MAKING Nursing notes and vital signs were reviewed. ED Course as of 07/11/23 1826 e Jul 11, 2023 0945 Respiratory Pathogen Panel, PCR Negative [LH] 0945 Lipase(!) Normal [LH] 0945 Troponin T, High Sensitivity Normal [LH] 0945 Comprehensive Metabolic Panel(!) Normal [LH] 0945 CBC with WBC Differential(!) Elevated neutrophils otherwise normal [LH] 0945 Urinalysis(!) Noninfectious [LH] 1231 Reached out to Surgery to speak to them about the patient. [LH] [address] Leon who agrees with the transfer. [LH] 1244 Pt is accepted to [facility] by Dr. Fontaine. Awaiting a bed. [LH] ED Course User Index [] Shelly Huddleston DO Patient was seen and examined. Basic laboratory work was obtained on the patient. A CT abdomen and pelvis was obtained on the patient which did show a an acute cholecystitis. Patient was found to have elevated blood pressure so she was given a dose of Lasix here. Lasix was chosen because the patient's heart rate was in the 50s at times and beta-blockers were deemed inappropriate. Patient did haveimprovement of her blood pressure while she was here in the emergency department. Patient received 2 doses of pain medication which also helped with the pain. I called and spoke to the surgeon on-call who agreed with transfer. I spoke to the hospitalist who accepted the patient in stable condition.The patient had a prolonged transport time but remained stable during her time here in the emergency department. Patient left the ED in stable condition. While here in the emergency department prior to the diagnosis of the acute cholecystitis the patient had moments of inappropriate behavior where she became slightly more aggressive. It was decided at that time that she needed a head CT. The headCT was found to be normal. Amount and/or Complexity of Data Reviewed Labs: ordered. Decision-making details documented in ED Course. Radiology: ordered. ECG/medicine tests: ordered. Risk Prescription drug management. Clinical Impressions Acute cholecystitis Disposition Transferred. The patient's condition at disposition was: stable. Comments ED Disposition Transferred Comment -- Shelly Huddleston documented in this encounter Miscellaneous Notes * ED Watch And Clock Repair Clerk Note - Dora Tamayo RN - 07/11/2023 6:30 PM EST Report given to ACU nurse at [facility] for room 120. * ED Watch And Clock Repair Clerk Note - Dora Tamayo RN - 07/11/2023 6:18 PM EST Patient transported on to [facility] stretcher for transportation to [facility] to ACU 120. * ED Watch And Clock Repair Clerk Note - Lisa Villatoro RN - 07/11/2023 1:02 PM EST Time contacted: 1302 EMS agency: [facility] [address] Spoke to: Bryant commercial illustrator Outcome: As soon as the other MICU is available they will be over. * ED Watch And Clock Repair Clerk Note - Edgar Perea TECH - 07/11/2023 11:06 AM EST Pt assisted to bedside commode with minimal assistance. No complaints voiced at this time. * ED Watch And Clock Repair Clerk Note - Jose M Brown LPN - 07/11/2023 8:15 AM EST Ekg performed as per provider order. Patient identified by name and . Hard copy of EKG provided to Dr. Huddleston for review. EKG transmitted for cardiology reading and review. * ED Watch And Clock Repair Clerk Note - Lisa Villatoro RN - 07/11/2023 8:09 AM EST Patient states that at midnight last night she started with abdominal pain, nausea, vomiting, and congestion. She also started having some chest pain this morning. Upon arrival, she has some drive heaving. Patient is aggressive towards staff upon arrival. documented in this encounter Plan of Treatment Scheduled Orders Name Type Priority Associated Diagnoses Orde r Schedule EKG EKG STAT Screening for cardiovascular condition Perform Now for 1 Occurrences starting 07/11/2023 until 07/11/2023 Scheduled Procedures Name Priority Associated Diagnoses Date/Ti me LAPAROSCOPIC CHOLECYSTECTOMY Acute cholecystitis Health Maintenance Due Date Last Done Comments [...] 02/20/2023, 03/03, 11/15/2020, Additional history exists GFR 07/11/2024 07/11/2023, 0807/2022, 04/19/2022, Additional history exists Lipid Panel 03/21/2027 03/21/2022, [...] Procedure Name Priority Date/Time Associated Diagnosis Comments TOXICOLOGY, URINE SCREEN CUP W/O CONFIRMATION ([facility] AND [facility] ONLY) Routine 07/11/2023 12:[address] HEAD/BRAIN WO CONTRAST STAT 07/11/2023 11:[address] ABD/PELVIS W IV CONTRAST - WO ORAL CONTRAST STAT 07/11/2023 10:41 AM EST XR CHEST 1 VIEW STAT 07/11/2023 8:53 AM EST MICROSCOPIC EXAM, URINE STAT 07/11/2023 8:40 AM EST URINALYSIS, REFLEX TO MICROSCOPIC STAT 07/11/2023 8:40 AM EST EXTRA GREEN TOP WITH GEL Routine 07/11/2023 8:24 AM EST EXTRA LIGHT BLUE TOP STAT 07/11/2023 8:24 AM EST EXTRA GOLD TOP Routine 07/11/2023 8:24 AM EST EXTRA TUBES Routine 07/11/2023 8:24 AM EST DIFFERENTIAL, AUTOMATED STAT 07/11/2023 8:24 AM EST TROPONIN T, HIGH SENSITIVITY STAT 07/11/2023 8:24 AM EST RESPIRATORY PATHOGEN PANEL, PCR STAT 07/11/2023 8:24 AM EST COMPREHENSIVE METABOLIC PANEL STAT 07/11/2023 8:24 AM EST CBC STAT 07/11/2023 8:24 AM EST LIPASE STAT 07/11/2023 8:24 AM EST LACTATE,WHOLE BLOOD STAT 07/11/2023 8 :24 AM EST CBC STAT 07/11/2023 8:24 AM EST documented in this encounter Results * TOXICOLOGY, URINE SCREEN CUP W/O CONFIRMATION ([facility] AND [facility] ONLY) (07/11/2023 12:02 PM EST) [facility] Amphetamines Screen, U Negative Negative 07/11/2023 12:08 PM EST LABORATORY [facility] Barbiturates Screen, U Negative Negative 07/11/2023 12:08 PM EST LABORATORY [facility] Benzodiazepines Screen, U Negative Negative 07/11/2023 12:08 PM EST LABORATORY [facility] Cannabinoids Screen, U Negative Negative 07/11/2023 12:08 PM EST LABORATORY [facility] Cocaine Metabolite Screen, U Negative Negative 07/11/2023 12:08 PM EST LABORATORY [facility] Methadone Screen, U Negative Negative 07/11 12:08 PM EST LABORATORY [facility] Morphine/Codeine Screen, U Negative Negative 07/11/2023 12:08 PM EST LABORATORY [facility] Oxycodone Screen, U Negative Negative 07/11 12:08 PM EST LABORATORY [facility] Urine Non-blood Collection / Unknown 07/11/2023 12:02 PM EST 07/11/2023 12:04 PM EST Narrative LABORATORY [facility] - 07/11/2023 12:08 PM EST Cutoff Concentrations: Drug Level Amphetamines 500 ng/mL Barbiturates 300 ng/mL Benzodiazepines 300 ng/mL Cannabinoids 50 ng/mL Cocaine Metabolite 300 ng/mL Morphine / Codeine 300 ng/mL Methadone 300 ng/mL Oxycodone 100 ng/mL Screening results are presumptive and can only be used for medical purposes. Confirmatory testing is available upon request. Shelly Huddleston DO LAB URINE ORDERABL ES LABORATORY [address] [address] * CT HEAD/BRAIN WO CONTRAST (07/11/2023 11:46 AM EST) Anatomical Region Laterality Modality Head Computed Tomogra phy 07/11/2023 11:3 9 AM EST Impressions 07/11/2023 12:10 PM EST IMPRESSION: No acute abnormality THIS DOCUMENT HAS BEEN ELECTRONICALLY SIGNED BY BARTOLO MIMS MD Narrative 07/11/2023 12:10 PM EST PROCEDURE INFORMATION: Exam: CT Head Without Contrast Exam date and time: 07/11/2023 11:39 AM Age: 62 years old Clinical indication: Other: Vomitting; Additional info: Hypertensive, vomiting TECHNIQUE: Imaging protocol: Computed tomography of the head without contrast. Radiation optimization: All CT scans at this facility use at least one of these dose optimization techniques: automated exposure control; mA and/or kV adjustment per patient size (includes targeted exams where dose is matched to clinical indication); or iterative reconstruction. COMPARISON: No relevant prior studies available. FINDINGS: Brain: The tong-white matter differentiation is maintained. There is no midline shift. There is no intracranial hemorrhage. Basal ganglia calcification is seen Cerebral ventricles: No ventriculomegaly. Paranasal sinuses: No air-fluid levels are seen within the sinuses Mastoid air cells: The mastoid air cells are clear prior graft the calvarium is intact Bones/joints: There is degenerative change at the left temporomandibular joint Soft tissues: The soft tissues are unremarkable Procedure Note Bartolo Mims MD - 07/11/2023 PROCEDURE INFORMATION: Exam: CT Head Without Contrast Exam date and time: 07/11/2023 11:39 AM Age: 62 years old Clinical indication: Other: Vomitting; Additional info: Hypertensive,vomiting TECHNIQUE: Imaging protocol: Computed tomography of the head without contrast. Radiation optimization: All CT scans at this facility use at least one ofthese dose optimization techniques: automated exposure control; mA and/or kV adjustment per patient size (includes targeted exams where dose is matchedto clinical indication); or iterative reconstruction. COMPARISON: No relevant prior studies available. FINDINGS: Brain: The tong-white matter differentiation is maintained. There is nomidline shift. There is no intracranial hemorrhage. Basal ganglia calcification isseen Cerebral ventricles: No ventriculomegaly. Paranasal sinuses: No air-fluid levels are seen within the sinuses Mastoid air cells: The mastoid air cells are clear prior graft thecalvarium is intact Bones/joints: There is degenerative change at the left temporomandibularjoint Soft tissues: The soft tissues are unremarkable IMPRESSION IMPRESSION: No acute abnormality THIS DOCUMENT HAS BEEN ELECTRONICALLY SIGNED BY BARTOLO MIMS MD Shelly Huddleston DO RAD CT * CT ABD/PELVIS W IV CONTRAST - WO ORAL CONTRAST (07/11/2023 10:41 AM EST) Anatomical Region Laterality Modality Body, Abdomen, Pelvis Computed T omography 07/11/2023 10:3 0 AM EST Impressions 07/11/2023 11:10 AM EST IMPRESSION: 1. Probable acute cholecystitis 2. Enhancing bladder lesion THIS DOCUMENT HAS BEEN ELECTRONICALLY SIGNED BY BARTOLO MIMS MD Narrative 07/11/2023 11:10 AM EST PROCEDURE INFORMATION: Exam: CT Abdomen And Pelvis With Contrast Exam date and time: 07/11/2023 10:30 AM Age: 62 years old Clinical indication: Abdominal pain; Generalized; Additional info: Ab pain TECHNIQUE: Imaging protocol: Computed tomography of the abdomen and pelvis with contrast. Radiation optimization: All CT scans at this facility use at least one of these dose optimization techniques: automated exposure control; mA and/or kV adjustment per patient size (includes targeted exams where dose is matched to clinical indication); or iterative reconstruction. Contrast material: OPTIRAY 350; Contrast volume: 100 ml; Contrast route: INTRAVENOUS (IV); COMPARISON: CT ABD PEL WITH(Adult) 04/17/2022 11:16 PM FINDINGS: Lungs: No suspicious abnormality is seen within the lung bases Coronary arteries: Coronary artery calcification is seen Liver: No suspicious abnormality is identified within the liver Gallbladder and bile ducts: The gallbladder is distended measuring about 13 cm in length. There is gallbladder wall thickening. There is Analilia cholecystic fluid. There are gallstones within the gallbladder. There are a couple of small ones within the cystic. An acute cholecystitis should be considered. A HIDA scan may be of value. The intrahepatic biliary tree is prominent Pancreas: The pancreas is atrophic Spleen: The spleen is not enlarged. The spleen is not enlarged Adrenal glands: No suspicious abnormality is seen within the adrenal glands Kidneys and ureters: There is no hydronephrosis. 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 The small bowel pattern is unremarkable. The gastric outline is normal Appendix: There is no acute appendicitis Intraperitoneal space: There is no free intraperitoneal air Vasculature: There is a small amount of atheromatous change within the aorta Lymph nodes: The lymph nodes are nonspecific Urinary bladder: There is an enhancing bladder mucosal lesion measuring about 5 mm series 6, image 43. There is enhancement of the right superolateral wall of the bladder as well. Cystoscopic evaluation is advised Reproductive: There is some myometrial calcification within the uterus Bones/joints: There is degenerative change in the spine Soft tissues: Unremarkable. Procedure Note Bartolo Mims MD - 07/11/2023 PROCEDURE INFORMATION: Exam: CT Abdomen And Pelvis With Contrast Exam date and time: 07/11/2023 10:30 AM Age: 62 years old Clinical indication: Abdominal pain; Generalized; Additional info: Ab pain TECHNIQUE: Imaging protocol: Computed tomography of the abdomen and pelvis withcontrast. Radiation optimization: All CT scans at this facility use at least one ofthese dose optimization techniques: automated exposure control; mA and/or kV adjustment per patient size (includes targeted exams where dose is matchedto clinical indication); or iterative reconstruction. Contrast material: OPTIRAY 350; Contrast volume: 100 ml; Contrast route: INTRAVENOUS (IV); COMPARISON: CT ABD PEL WITH(Adult) 04/17/2022 11:16 PM FINDINGS: Lungs: No suspicious abnormality is seen within the lung bases Coronary arteries: Coronary artery calcification is seen Liver: No suspicious abnormality is identified within the liver Gallbladder and bile ducts: The gallbladder is distended measuring about13 cm in length. There is gallbladder wall thickening. There is Analilia cholecystic fluid. There are gallstones within the gallbladder. There are a couple ofsmall ones within the cystic. An acute cholecystitis should be considered. AHIDA scan may be of value. The intrahepatic biliary tree is prominent Pancreas: The pancreas is atrophic Spleen: The spleen is not enlarged. The spleen is not enlarged Adrenal glands: No suspicious abnormality is seen within the adrenalglands Kidneys and ureters: There is no hydronephrosis. There is a small rightrenal angiomyolipoma Stomach and bowel: There is a moderate amount of stool within the colon.The small bowel pattern is unremarkable. The gastric outline is normal Appendix: There is no acute appendicitis Intraperitoneal space: There is no free intraperitoneal air Vasculature: There is a small amount of atheromatous change within theaorta Lymph nodes: The lymph nodes are nonspecific Urinary bladder: There is an enhancing bladder mucosal lesion measuringabout 5 mm series 6, image 43. There is enhancement of the right superolateralwall of the bladder as well. Cystoscopic evaluation is advised Reproductive: There is some myometrial calcification within the uterus Bones/joints: There is degenerative change in the spine Soft tissues: Unremarkable. IMPRESSION IMPRESSION: 1. Probable acute cholecystitis 2. Enhancing bladder lesion THIS DOCUMENT HAS BEEN ELECTRONICALLY SIGNED BY BARTOLO MIMS MD Shelly Huddleston DO RAD CT * XR CHEST 1 VIEW (07/11/2023 8:53 AM EST) Anatomical Region Laterality Modality Chest Computed Radiogr aphy 07/11/2023 8:51 AM EST Impressions 07/11/2023 9:16 AM EST IMPRESSION: No acute lung disease. THIS DOCUMENT HAS BEEN ELECTRONICALLY SIGNED BY KIMI DICKERSON MD Narrative 07/11/2023 9:16 AM EST PROCEDURE INFORMATION: Exam: XR Chest Exam date and time: 07/11/2023 8:51 AM Age: 62 years old Clinical indication: Pain; Chest pressure; Additional info: Cp TECHNIQUE: Imaging protocol: Radiologic exam of the chest. Views: 1 view. COMPARISON: XR CHEST 1 VIEW 04/17/2022 8:53 PM FINDINGS: Lungs: No acute lung disease. No consolidation. Pleural spaces: Unremarkable. No pleural effusion. No pneumothorax. Heart/Mediastinum: No cardiomegaly. Bones/joints: Unremarkable. Procedure Note Kimi Dickerson MD - 07/11/2023 PROCEDURE INFORMATION: Exam: XR Chest Exam date and time: 07/11/2023 8:51 AM Age: 62 years old Clinical indication: Pain; Chest pressure; Additional info: Cp TECHNIQUE: Imaging protocol: Radiologic exam of the chest. Views: 1 view. COMPARISON: KO XR CHEST 1 VIEW 04/17/2022 8:53 PM FINDINGS: Lungs: No acute lung disease. No consolidation. Pleural spaces: Unremarkable. No pleural effusion. No pneumothorax. Heart/Mediastinum: No cardiomegaly. Bones/joints: Unremarkable. IMPRESSION IMPRESSION: No acute lung disease. THIS DOCUMENT HAS BEEN ELECTRONICALLY SIGNED BY KIMI DICKERSON MD Shelly Huddleston DO RADIOLOGY (RAD GEN ERAL) * (ABNORMAL) MICROSCOPIC EXAM, URINE (07/11/2023 8:40 AM EST) RBC, Urine 0-2 0 - 2 /HPF 07/11/2023 8:55 AM EST LABORATORY [facility] WBC, Urine 0-2 0 - 2 /HPF 07/11/2023 8:55 AM EST LABORATORY [facility] Bacteria, Urine 0-25 0 - 25 /HPF 07/11/2023 8:55 AM EST LABORATORY [facility] Amorphous Crystals, Urine Many(A) None /HPF 07/11/2023 8:55 AM EST LABORATORY [facility] Urine Urine specimen obtained by clean catch procedure / Unknown Non-blood Collection / Unknown 07/11/2023 8:40 AM EST 07/11/2023 8:45 AM EST Shelly Huddleston DO LAB URINE ORDERABL ES LABORATORY [address] [address] * (ABNORMAL) URINALYSIS, REFLEX TO MICROSCOPIC (07/11/2023 8:40 AM EST) Color, Urine Light Yellow Light Yellow, Yellow, Dark Yellow 07/11/2023 8:55 AM EST LABORATORY [facility] Clarity, Urine Slightly Cloudy(A) Clear 07/11/2023 8:55 AM EST LABORATORY [facility] Glucose, Urine Negative Negative mg/dL 07/11/2023 8:55 AM EST LABORATORY [facility] Bilirubin, Urine Negative Negative 07/11/2023 8:55 AM EST LABORATORY [facility] Ketone, Urine 80(A) Negative mg/dL 07/11/2023 8:55 AM EST LABORATORY [facility] Specific [place], Urine 1.015 1.003 - 1.030 07/11/2023 8:55 AM EST LABORATORY [facility] Blood, Urine Negative Negative 07/11/2023 8:55 AM EST LABORATORY [facility] pH, Urine 8.5(H) 5.0 - 7.5 Units 07/11/2023 8:55 AM EST LABORATORY [facility] Protein, Urine 30(A) Negative mg/dL 07/11/2023 8:55 AM EST LABORATORY [facility] Urobilinogen, Urine 0.2 0.2, 1.0 mg/dL 07/11/2023 8:55 AM EST LABORATORY [facility] Nitrite, Urine Negative Negative 07/11/2023 8:55 AM EST LABORATORY [facility] Esterase, Urine Negative Negative 07/11/2023 8:55 AM EST LABORATORY [facility] Urine Urine specimen obtained by clean catch procedure / Unknown Non-blood Collection / Unknown 07/11/2023 8:40 AM EST 07/11/2023 8:45 AM EST Shelly Huddleston DO LAB URINE ORDERABL ES Performing Organization Address [facility]/ZIP Co de Phone Number LABORATORY [address] [address] * EXTRA GREEN TOP WITH GEL (07/11/2023 8:24 AM EST) Blood Venous blood specimen / Unknown Venipuncture / Unknown 07/11/2023 8:24 AM EST 07/11/2023 8:30 AM EST Shelly Huddleston DO LAB BLOOD ORDERABL ES Performing Organization Address [facility]/ZIP Co de Phone Number LABORATORY [address] [address] * EXTRA GOLD TOP (07/11/2023 8:24 AM EST) Blood Venous blood specimen / Unknown 07/11/2023 8:24 AM EST 07/11/2023 8:30 AM EST Shelly Huddleston DO LAB BLOOD ORDERABL ES Performing Organization Address [facility]/ZIP Co de Phone Number LABORATORY [address] [phone] * TROPONIN T, HIGH SENSITIVITY (07/11/2023 8:24 AM EST) Troponin T, High Sensitivity <6 <=14 ng/L 07/11/2023 8:53 AM EST LABORATORY [facility] Blood Venous blood specimen / Unknown Venipuncture / Unknown 07/11/2023 8:24 AM EST 07/11/2023 8:29 AM EST Shelly Skinner Flaquito DO LAB BLOOD ORDERABL ES LABORATORY [id number] [place] [address] * RESPIRATORY PATHOGEN PANEL, PCR (07/11/2023 8:24 AM EST) Adenovirus by PCR Negative Negative 024 9:22 AM EST LABORATORY [facility] Coronavirus 229E by PCR Negative Negative 07/11/2023 9:22 AM EST LABORATORY [facility] Coronavirus HKU1 by PCR Negative Negative 07/11/2023 9:22 AM EST LABORATORY [facility] Coronavirus NL63 by PCR Negative Negative 07/11/2023 9:22 AM EST LABORATORY [facility] Coronavirus OC43 by PCR Negative Negative 07/11/2023 9:22 AM EST LABORATORY [facility] Coronavirus SARS-CoV-2 by PCR Negative Negative 07/11/2023 9:22 AM EST LABORATORY [facility] Human Metapneumovirus by PCR Negative Negative 07/11/2023 9:22 AM EST LABORATORY [facility] Rhinovirus/Enterovi priya by PCR Negative Negative 07/11/2023 9:22 AM EST LABORATORY [facility] Influenza A Virus by PCR Negative Negative 07/11/2023 9:22 AM EST LABORATORY [facility] Influenza B Virus by PCR Negative Negative 07/11/2023 9:22 AM EST LABORATORY [facility] Parainfluenza Virus 1 by PCR Negative Negative 07/11/2023 9:22 AM EST LABORATORY [facility] Parainfluenza Virus 2 by PCR Negative Negative 07/11/2023 9:22 AM EST LABORATORY [facility] Parainfluenza Virus 3 by PCR Negative Negative 07/11/2023 9:22 AM EST LABORATORY [facility] Parainfluenza Virus 4 by PCR Negative Negative 07/11/2023 9:22 AM EST LABORATORY [facility] Respiratory Syncytial Virus by PCR Negative Negative 07/11/2023 9:22 AM EST LABORATORY [facility] Bordetella pertussis by PCR Negative Negative 07/11/2023 9:22 AM EST LABORATORY [facility] Chlamydia pneumoniae by PCR Negative Negative 07/11/2023 9:22 AM EST LABORATORY [facility] Mycoplasma pneumoniae by PCR Negative Negative 07/11/2023 9:22 AM EST LABORATORY [facility] Bordetella parapertussis by PCR Negative Negative 07/11/2023 9:22 AM EST LABORATORY [facility] Comment: The primers that detect Rhinovirus may cross react with some Enterorviruses. The validation of bronchial specimens, tracheal aspirates, and throats for this assay was developed and performance characteristics determined by [employer]. The validation of alternate specimen types has not been cleared or approved by the U.S. Food and Drug Administration (FDA). It has been determined that such clearance or approval is not necessary. Upper Respiratory Mid-turbinate nasal swab / Unknown Non-blood Collection / Unknown 07/11/2023 8:24 AM EST 07/11/2023 8:29 AM EST Shelly Huddleston DO LAB MICRO - GENERA L ORDERABLES LABORATORY [address] [place] [address] * (ABNORMAL) DIFFERENTIAL, AUTOMATED (07/11/2023 8:24 AM EST) WBC 10.61 4.00 - 10.80 K/uL 07/11/2023 8:36 AM EST LABORATORY [facility] Neutrophils % 85.5(H) 40.0 - 75.0 % 07/11/2023 8:36 AM EST LABORATORY [facility] Lymphocytes % 10.0(L) 18.0 - 42.0 % 07/11/2023 8:36 AM EST LABORATORY [facility] Monocytes % 3.5 1.0 - 11.0 % 07/11/2023 8:36 AM EST LABORATORY [facility] Eosinophils % 0.8 0.0 - 6.0 % 07/11/2023 8:36 AM EST LABORATORY [facility] Basophils % 0.2 0.0 - 2.0 % 07/11/2023 8:36 AM EST LABORATORY [facility] Absolute Neutrophils 9.08(H) 1.80 - 7.70 K/uL 07/11/2023 8:36 AM EST LABORATORY [facility] Absolute Lymphocytes 1.06 1.00 - 4.80 K/ul 07/11/2023 8:36 AM EST LABORATORY [facility] Absolute Monocytes 0.37 0.00 - 1.10 K/uL 07/11/2023 8:36 AM EST LABORATORY [facility] Absolute Eosinophils 0.08 0.00 - 0.70 K/uL 07/11/2023 8:36 AM EST LABORATORY [facility] Absolute Basophils 0.02 0.00 - 0.20 K/uL 07/11/2023 8:36 AM EST LABORATORY [facility] Blood Venous blood specimen / Unknown Venipuncture / Unknown 07/11/2023 8:24 AM EST 07/11/2023 8:29 AM EST Shelly Huddleston DO LAB BLOOD ORDERABL ES LABORATORY [address] [address] * CBC (07/11/2023 8:24 AM EST) WBC 10.61 4.00 - 10.80 K/uL 07/11/2023 8:36 AM EST LABORATORY [facility] RBC 4.01 3.85 - 5.15 M/uL 07/11/2023 8:36 AM EST LABORATORY [facility] HGB 12.4 12.0 - 15.3 g/dL 07/11/2023 8:36 AM EST LABORATORY [facility] HCT 36.2 36.0 - 45.2 % 07/11/2023 8:36 AM EST LABORATORY [facility] MCV 90.3 81.5 - 97.5 fL 07/11/2023 8:36 AM EST LABORATORY [facility] MCH 30.9 27.0 - 34.0 pg 07/11/2023 8:36 AM EST LABORATORY [facility] MCHC 34.3 32.0 - 36.0 g/dL 07/11/2023 8:36 AM EST LABORATORY [facility] RDW 12.4 11.5 - 15.5 % 07/11/2023 8:36 AM EST LABORATORY [facility] PLT 199 140 - 400 K/uL 07/11/2023 8:36 AM EST LABORATORY [facility] MPV 10.3 6.6 - 11.1 fL 07/11/2023 8:36 AM EST LABORATORY [facility] Blood Venous blood specimen / Unknown Venipuncture / Unknown 07/11/2023 8:24 AM EST 07/11/2023 8:29 AM EST Shelly Huddleston DO LAB BLOOD ORDERABL ES Performing Organization Address [facility]/[place] Co de Phone Number LABORATORY [address] [phone] * LACTATE,WHOLE BLOOD (07/11/2023 8:24 AM EST) Lactate, Whole Blood 1.4 0.4 - 2.0 mmol/L 07/11/2023 8:32 AM EST LABORATORY [facility] Blood Venous blood specimen / Unknown Venipuncture / Unknown 07/11/2023 8:24 AM EST 07/11/2023 8:30 AM EST Shelly Huddleston LAB BLOOD ORDERABL ES Performing Organization Address [facility]/[place] Co de Phone Number LABORATORY [address] [address] * EXTRA LIGHT BLUE TOP (07/11/2023 8:24 AM EST) Blood Venous blood specimen / Unknown Venipuncture / Unknown 07/11/2023 8:24 AM EST 07/11/2023 8:29 AM EST Shelly Huddleston LAB BLOOD ORDERABL ES Performing Organization Address [facility] de Phone Number LABORATORY [address] [phone] * (ABNORMAL) LIPASE (07/11/2023 8:24 AM EST) Lipase 7(L) 13 - 60 U/L 07/11/2023 8:53 AM EST LABORATORY [facility] Blood Venous blood specimen / Unknown Venipuncture / Unknown 07/11/2023 8:24 AM EST 07/11/2023 8:29 AM EST Shelly Huddleston DO LAB BLOOD ORDERABL ES LABORATORY [facility] [address] [place] [address] * (ABNORMAL) COMPREHENSIVE METABOLIC PANEL (07/11/2023 8:24 AM EST) BUN 14 6 - 20 mg/dL 07/11/2023 8:53 AM EST LABORATORY [facility] Creatinine 0.5 0.5 - 1.0 mg/dL 07/11/2023 8:53 AM EST LABORATORY [facility] Estimated Glomerular Filtration Rate >90 >=60 mL/min 07/11/2023 8:53 AM EST LABORATORY [facility] Comment:eGFR is calculated b ased on the CKD-EPI 2020 equation Sodium 137 135 - 146 mmol/L 07/11/2023 8:53 AM EST LABORATORY [facility] Potassium 3.7 3.5 - 5.1 mmol/L 07/11/2023 8:53 AM EST LABORATORY [facility] Chloride 99 98 - 107 mmol/L 07/11/2023 8:53 AM EST LABORATORY [facility] CO2 22 22 - 32 mmol/L 07/11/2023 8:53 AM EST LABORATORY [facility] Anion Gap 16(H) 7 - 15 mmol/L 07/11/2023 8:53 AM EST LABORATORY [facility] Glucose 143(H) 70 - 120 mg/dL 07/11/2023 8:53 AM EST LABORATORY [facility] Albumin 4.6 3.8 - 5.0 g/dL 07/11/2023 8:53 AM EST LABORATORY [facility] AST 21 10 - 35 U/L 07/11/2023 8:53 AM EST LABORATORY [facility] Alkaline Phosphatase 91 35 - 130 U/L 07/11/2023 8:53 AM EST LABORATORY [facility] Bilirubin, Total 0.5 <=1.2 mg/dL 07/11/2023 8:53 AM EST LABORATORY [facility] Calcium 9.2 8.4 - 10.2 mg/dL 07/11/2023 8:53 AM EST LABORATORY [facility] Protein 7.6 6.0 - 8.3 g/dL 07/11/2023 8:53 AM EST LABORATORY [facility] ALT 13 10 - 35 U/L 07/11/2023 8:53 AM EST LABORATORY [facility] Blood Venous blood specimen / Unknown Venipuncture / Unknown 07/11/2023 8:24 AM EST 07/11/2023 8:29 AM EST Shelly Huddleston DO LAB BLOOD ORDERABL ES LABORATORY [facility] [address] [place] [address] documented in this encounter Visit Diagnoses Diagnosis Acute cholecystitis- Primary Screening for cardiovascular condition Screening for other and unspecified cardiovascular conditions Abdominal pain Abdominal pain, unspecified site documented in this encounter Administered Medications Inactive Administered Medications - up to 3 most recent administrations Medication Order MAR Action Action Date Dose Rate Site Famotidine (Pepcid) inj 20 mg 20 mg, IV Push, ONCE, On Mon07/11/23 at 1030, For 1 dose, Give IV push over 2 minutes. Given 07/11/2023 10:05 AM EST 20 mg fentaNYL (PF) inj 25 mcg 25 mcg, Intravenous, ONCE, On Mon07/11/23 at 0915, For 1 dose, When given IV Push its recommended that the dose be given over 3 to 5 minutes. Given 07/11/2023 8:51 AM EST 25 mcg Furosemide (Lasix) inj 40 mg 40 mg, IV Push, ONCE, On Mon07/11/23 at 1215, For 1 dose Given 07/11/2023 12:02 PM EST 40 mg HYDROmorphone (Dilaudid) inj 0.5 mg 0.5 mg, Intravenous, ONCE, On Mon07/11/23 at 1030, For 1 dose Given 07/11/2023 10:07 AM EST 0.5 mg Ioversol (Optiray 320) inj 100 mL 100 mL, Intravenous, ONCE, On Mon07/11/23 at 1115, For 1 dose, Radiology Medication Routing (Non-IR) Given 07/11/2023 10:38 AM EST 100 mL NSS 0.9% 1,000 mL bolus infusion Peripheral IV, at 1,000 mL/hr Administer over 60 Minutes, Administer entire volume within 60 minutes or less., ONCE, 1 dose, On Mon07/11/23 at 0915 New Bag 07/11/2023 8:51 AM EST 1,000 mL 1000 mL/hr ondansetron (Zofran) inj 4 mg 4 mg, IV Push, ONCE, On Mon07/11/23 at 0915, For 1 dose Given 07/11/2023 8:51 AM EST 4 mg ondansetron (Zofran) inj 4 mg 4 mg, IV Push, ONCE, On Mon07/11/23 at 1345, For 1 dose Given 07/11/2023 1:07 PM EST 4 mg documented in this encounter Active and Recently Administered Medications Times are shown in EST. Scheduled Medication Order 07/09/2023 07/10/2023 07/11/2023 Famotidine (Pepcid) inj 20 mg (COMPLETED) 20 mg, IV Push, ONCE, On Mon07/11/23 at 1030, For 1 dose, Give IV push over 2 minutes. 1005 (Given - Provid er: Lisa Villatoro RN) fentaNYL (PF) inj 25 mcg (COMPLETED) 25 mcg, Intravenous, ONCE, On Mon07/11/23 at 0915, For 1 dose, When given IV Push its recommended that the dose be given over 3 to 5 minutes. 0851 (Given - Provid er: Blue Perry RN) Furosemide (Lasix) inj 40 mg (COMPLETED) 40 mg, IV Push, ONCE, On Mon07/11/23 at 1215, For 1 dose 1202 (Given - Provid er: Dora Tamayo RN) HYDROmorphone (Dilaudid) inj 0.5 mg (COMPLETED) 0.5 mg, Intravenous, ONCE, On Mon07/11/23 at 1030, For 1 dose 1007 (Given - Provid er: Lisa Villatoro RN) Ioversol (Optiray 320) inj 100 mL (COMPLETED) 100 mL, Intravenous, ONCE, On Mon07/11/23 at 1115, For 1 dose, Radiology Medication Routing (Non-IR) 1038 (Given - Provid er: Ginger Potts, RT) NSS 0.9% 1,000 mL bolus infusion (COMPLETED) Peripheral IV, at 1,000 mL/hr Administer over 60 Minutes, Administer entire volume within 60 minutes or less., ONCE, 1 dose, On Mon07/11/23 at 0915 0851 (New Bag - Prov ider: Blue Perry RN)1008 (Stopped - Provider: Lisa Villatoro RN) ondansetron (Zofran) inj 4 mg (COMPLETED) 4 mg, IV Push, ONCE, On Mon07/11/23 at 0915, For 1 dose 0851 (Given - Provid er: Blue Perry RN) ondansetron (Zofran) inj 4 mg (COMPLETED) 4 mg, IV Push, ONCE, On Mon07/11/23 at 1345, For 1 dose 1307 (Given - Provid er: Dora Tamayo RN) documented in this encounter Additional Health Concerns Infection Onset Date Last Indicated Resolved Time Respiratory Rule-Out 07/11/2023 07/11/2023 024 9:22 AM EST COVID-19 Rule-Out 07/11/2023 07/11/2023 07/11/2023 9:22 AM EST documented as of this encounter Advance Directives Latest Code Status on File Code Status Date Activated Date Inactivated Comments Full Code 07/11/2023 9:15 PM This order reflects the patients wishes and were consensually agreed upon. Question Answer Comments Discussion of Advance Directives occurred with: Patient Does the patient have a Living Will? No Does the patient have Health Care Power of Rn Psychiatric? No Code Status History Code Status Date Activated Date Inactivated Comments Full Code 04/17/2022 8:57 PM 04/19/2022 9:06 PM Thi s order reflects the patients wishes and were consensually agreed upon. Question Answer Comments Discussion of Advance Directives occurred with: Patient Does the patient have a Living Will? No Does the patient have Health Care Power of Rn Psychiatric? No Care Teams [employer] Relationship Specialty Start Date End Date Jacquelyn Mckinney MD [address] [place] [id number] PCP - General Family Medicine 04/17/22 documented as of this encounter"
--- OUTSIDE RECORDS SUMMARY | 2023-07-18 02:28 | External Medical Summary ---
Author Name Unknown Address Unknown Organization : Laboratory Report Ordering Provider Test Date Status MAYUR VILLALTA 07/12/2023 06:13:00 Final Observation Date Value Abnormality Reference (Units ) Status WBC, Total 07/12/2023 06:13:00 14.06 Above high normal 4.00-10.80 (K/uL) Final RBC 07/12/2023 06:13:00 3.82 3.85-5.15 (M/uL) Final Hemoglobin 07/12/2023 06:13:00 11.6 Below low normal 12.0-15.3 (g/dL) Final HCT 07/12/2023 06:13:00 35.1 Below low normal 36.0-45.2 (%) Final MCV 07/12/2023 06:13:00 91.9 81.5-97.5 (fL) Final MCH 07/12/2023 06:13:00 30.4 27.0-34.0 (pg) Final MCHC 07/12/2023 06:13:00 33.0 32.0-36.0 (g/dL) Final RDW 07/12/2023 06:13:00 13.0 11.5-15.5 (%) Final Platelets 07/12/2023 06:13:00 203 140-400 (K/uL) Final MPV 07/12/2023 06:13:00 10.4 6.6-11.1 (fL) Final Nucleated erythrocytes/100 leukocytes [Ratio] in Blood by Automated count 07/12/2023 06:13:00 0 <=0 (/100 WBCs) Final Performing Location
--- OUTSIDE RECORDS SUMMARY | 2023-07-18 02:28 | External Medical Summary ---
Author Name Unknown Address Unknown Organization : Laboratory Report Ordering Provider Test Date Status CESAR CHADWICK 07/13/2023 16:10:56 Final Observation Date Value Abnormality Reference (Units ) Status Glucose Point of Care 07/13/2023 16:10:56 280 Above high normal 70-120 (mg/dL) Final Performing Location
--- OUTSIDE RECORDS SUMMARY | 2023-07-18 02:28 | External Medical Summary ---
Author Name Unknown Address Unknown Organization K1G:LABORATORY [facility] - [address] [place] [id number] Laboratory Report Ordering Provider Test Date Status IKER GONZALES 07/11/2023 08:24:06 Final Observation Date Value Abnormality Reference (Units ) Status WBC, Total 07/11/2023 08:24:06 10.61 4.00-10.8 0 (K/uL) Final RBC 07/11/2023 08:24:06 4.01 3.85-5.15 (M/uL) Final Hemoglobin 07/11/2023 08:24:06 12.4 12.0-15.3 (g/dL) Final HCT 07/11/2023 08:24:06 36.2 36.0-45.2 (%) Final MCV 07/11/2023 08:24:06 90.3 81.5-97.5 (fL) Final MCH 07/11/2023 08:24:06 30.9 27.0-34.0 (pg) Final MCHC 07/11/2023 08:24:06 34.3 32.0-36.0 (g/dL) Final RDW 07/11/2023 08:24:06 12.4 11.5-15.5 (%) Final Platelets 07/11/2023 08:24:06 199 140-400 (K /uL) Final MPV 07/11/2023 08:24:06 10.3 6.6-11.1 ( fL) Final Performing Location LABORATORY [facility] - [address] [facility] [phone]
--- OUTSIDE RECORDS SUMMARY | 2023-07-18 02:28 | External Medical Summary ---
Author Name Unknown Address Unknown Organization K1G:LABORATORY [facility] - [address] [facility] [id number] Laboratory Report Ordering Provider Test Date Status IKER GONZALES 07/11/2023 08:24:06 Final Observation Date Value Abnormality Reference (Units ) Status SYNC LEUKOCYTES IN BLOOD BY AUTOMATED COUNT 07/11/2023 08:24:06 10.61 4.00-10.80 (K/uL) Final Segs 07/11/2023 08:24:06 85.5 Above high normal 40.0-75.0 (%) Final Lymphs % 07/11/2023 08:24:06 10.0 Below low normal 18.0-42.0 (%) Final Monos 07/11/2023 08:24:06 3.5 1.0-11.0 (%) Final Eosinophils 07/11/2023 08:24:06 0.8 0.0-6.0 (%) Final Basos 07/11/2023 08:24:06 0.2 0.0-2.0 (%) Final Absolute Segs 07/11/2023 08:24:06 9.08 Above high normal 1.80-7.70 (K/uL) Final Lymphs, absolute 07/11/2023 08:24:06 1.06 1.00-4.80 (K/ul) Final Monos, Abs 07/11/2023 08:24:06 0.37 0.00-1.10 (K/uL) Final Eos, Abs 07/11/2023 08:24:06 0.08 0.00-0.70 (K/uL) Final Basos, Abs 07/11/2023 08:24:06 0.02 0.00-0.20 (K/uL) Final Performing Location LABORATORY [facility] - [address] [facility] [id number]
--- OUTSIDE RECORDS SUMMARY | 2023-07-18 02:28 | External Medical Summary ---
Author Name Unknown Address Unknown Organization : Laboratory Report Ordering Provider Test Date Status CESAR CHADWICK 07/13/2023 07:31:11 Final Observation Date Value Abnormality Reference (Units ) Status Glucose Point of Care 07/13/2023 07:31:11 363 Above high normal 70-120 (mg/dL) Final Performing Location
--- OUTSIDE RECORDS SUMMARY | 2023-07-18 02:28 | External Medical Summary ---
Author Name Unknown Address Unknown Organization : Laboratory Report Ordering Provider Test Date Status CESAR CHADWICK 07/13/2023 09:19:10 Final Observation Date Value Abnormality Reference (Units ) Status Glucose Point of Care 07/13/2023 09:19:10 347 Above high normal 70-120 (mg/dL) Final Performing Location
--- OUTSIDE RECORDS SUMMARY | 2023-07-18 02:28 | External Medical Summary ---
Author Name Unknown Address Unknown Organization K1G:LABORATORY [facility] - [address] [place] [id number] Laboratory Report Ordering Provider Test Date Status IKER GONZALES 07/11/2023 12:02:11 Final Cutoff Concentrations:
D rug Level
Amphetamines 500 ng/mL
Barbiturates 300 ng/mL
Benzodiazepines 300 ng/mL
Cannabinoids 50 ng/mL
Cocaine Metabolite 300 ng/mL
Morphine / Codeine 300 ng/mL
Methadone 300 ng/mL
Oxycodone 100 ng/mL

Screening results are presumptive and can only be used for medical purposes. Confirmatory testing is available upon request. Observation Date Value Abnormality Reference (Units ) Status Amphetamines, Urine screen 07/11/2023 12:02:11 Negative Negative Final Barbiturates, Urine 07/11/2023 12:02:11 Negative Negative Final Benzodiazepines, Urine screen 07/11/2023 12:02:11 Negative Negative Final Cannabinoids, Urine screen 07/11/2023 12:02:11 Negative Negative Final Cocaine Metabolite, Urine screen 07/11/2023 12:02:11 Negative Negative Final Methadone [Presence] in Urine 07/11/2023 12:02:11 Negative Negative Final Opiates, Urine screen 07/11/2023 12:02:11 Negative Negative Final oxyCODONE [Presence] in Urine by Screen method 07/11/2023 12:02:11 Negative Negative Final Performing Location LABORATORY [facility] - [address] [facility] [phone]
--- OUTSIDE RECORDS SUMMARY | 2023-07-18 02:28 | External Medical Summary ---
Author Name Unknown Address Unknown Organization : Laboratory Report Ordering Provider Test Date Status MAYUR VILLALTA 07/12/2023 06:13:00 Final Observation Date Value Abnormality Reference (Units ) Status Albumin 07/12/2023 06:13:00 3.8 3.8-5.0 (g/dL) Final AST (Aspartate aminotransferase) 07/12/2023 06:13:00 46 Above high normal 10-35 (U/L) Final Result may be falsely elevat ed due to hemolysis. Alk Phos 07/12/2023 06:13:00 79 35-130 (U/ L) Final ALT (Alanine aminotransferase) 07/12/2023 06:13:00 16 10-35 (U/L) Final Bilirubin, Total 07/12/2023 06:13:00 1.1 <=1 .2 (mg/dL) Final Bilirubin, Direct 07/12/2023 06:13:00 0.3 0. 0-0.3 (mg/dL) Final Protein 07/12/2023 06:13:00 7.0 6.0-8.3 (g /dL) Final Performing Location
--- OUTSIDE RECORDS SUMMARY | 2023-07-18 02:28 | External Medical Summary ---
Author Name Unknown Address Unknown Organization K1G:LABORATORY [facility] - [address] [facility] [id number] Laboratory Report Ordering Provider Test Date Status IKER GONZALES 07/11/2023 08:24:06 Final Observation Date Value Abnormality Reference (Units ) Status BUN 07/11/2023 08:24:06 14 6-20 (mg/dL) Final Creatinine 07/11/2023 08:24:06 0.5 0.5-1.0 (mg/dL) Final Glomerular filtration rate/1.73 sq M.predicted [Volume Rate/Area] in Serum, Plasma or Blood by Creatinine-based formula (CKD-EPI) 07/11/2023 08:24:06 >90 >=60 (mL/min) Final eGFR is calculated based on the CKD-EPI 2020 equation SODIUM 07/11/2023 08:24:06 137 135-146 (m mol/L) Final Potassium 07/11/2023 08:24:06 3.7 3.5-5.1 (m mol/L) Final Cl 07/11/2023 08:24:06 99 98-107 (mm ol/L) Final CO2 07/11/2023 08:24:06 22 22-32 (mmo l/L) Final Anion gap 07/11/2023 08:24:06 16 Above high normal 7- 15 (mmol/L) Final Glucose 07/11/2023 08:24:06 143 Above high normal 70 -120 (mg/dL) Final Albumin 07/11/2023 08:24:06 4.6 3.8-5.0 (g /dL) Final AST (Aspartate aminotransferase) 07/11/2023 08:24:06 21 10-35 (U/L) Fin al Alk Phos 07/11/2023 08:24:06 91 35-130 (U/ L) Final Bilirubin, Total 07/11/2023 08:24:06 0.5 <=1 .2 (mg/dL) Final Calcium 07/11/2023 08:24:06 9.2 8.4-10.2 ( mg/dL) Final Protein 07/11/2023 08:24:06 7.6 6.0-8.3 (g /dL) Final ALT (Alanine aminotransferase) 07/11/2023 08:24:06 13 10-35 (U/L) Venkatesh mora Performing Location LABORATORY [facility] - [address] [place] [id number]
--- OUTSIDE RECORDS SUMMARY | 2023-07-18 02:28 | External Medical Summary ---
Author Name Unknown Address Unknown Organization : Laboratory Report Ordering Provider Test Date Status MAYUR VILLALTA 07/12/2023 06:13:00 Final Observation Date Value Abnormality Reference (Units ) Status Phosphate 07/12/2023 06:13:00 4.5 2.5-4.8 (m g/dL) Final Performing Location
--- OUTSIDE RECORDS SUMMARY | 2023-07-18 02:28 | External Medical Summary ---
Author Name Unknown Address Unknown Organization : Laboratory Report Ordering Provider Test Date Status MAYUR VILLALTA 07/12/2023 06:13:00 Final Observation Date Value Abnormality Reference (Units ) Status BUN 07/12/2023 06:13:00 27 Above high normal 6-20 (mg/dL) Final Creatinine 07/12/2023 06:13:00 1.5 Above high normal 0.5-1.0 (mg/dL) Final Glomerular filtration rate/1.73 sq M.predicted [Volume Rate/Area] in Serum, Plasma or Blood by Creatinine-based formula (CKD-EPI) 07/12/2023 06:13:00 38 Below low normal >=60 (mL/min) Final eGFR is calculated based on the CKD-EPI 2020 equation SODIUM 07/12/2023 06:13:00 138 135-146 (m mol/L) Final Potassium 07/12/2023 06:13:00 3.7 3.5-5.1 (m mol/L) Final Cl 07/12/2023 06:13:00 100 98-107 (mm ol/L) Final CO2 07/12/2023 06:13:00 24 22-32 (mmo l/L) Final Anion gap 07/12/2023 06:13:00 14 7-15 (mmol /L) Final Glucose 07/12/2023 06:13:00 93 70-120 (mg /dL) Final Calcium 07/12/2023 06:13:00 8.8 8.4-10.2 ( mg/dL) Final Performing Location
--- OUTSIDE RECORDS SUMMARY | 2023-07-18 02:28 | External Medical Summary ---
Author Name Unknown Address Unknown Organization : Laboratory Report Ordering Provider Test Date Status ARIEL SHEFFIELD 07/11/2023 23:16:36 Final Observation Date Value Abnormality Reference (Units ) Status Glucose Point of Care 07/11/2023 23:16:36 284 Above high normal 70-120 (mg/dL) Final Performing Location
--- OUTSIDE RECORDS SUMMARY | 2023-07-18 02:28 | External Medical Summary ---
Author Name Unknown Address Unknown Organization : Laboratory Report Ordering Provider Test Date Status MAYUR VILLALTA 07/12/2023 06:13:00 Final Observation Date Value Abnormality Reference (Units ) Status Magnesium 07/12/2023 06:13:00 2.0 1.5-2.6 (m g/dL) Final Performing Location
--- OUTSIDE RECORDS SUMMARY | 2023-07-18 02:28 | External Medical Summary ---
Author Name Unknown Address Unknown Organization : Laboratory Report Ordering Provider Test Date Status CESAR CHADWICK 07/13/2023 06:08:00 Final Observation Date Value Abnormality Reference (Units ) Status WBC, Total 07/13/2023 06:08:00 9.20 4.00-10.80 (K/uL) Final RBC 07/13/2023 06:08:00 3.08 3.85-5.15 (M/uL) Final Hemoglobin 07/13/2023 06:08:00 9.2 Below low normal 12.0-15.3 (g/dL) Final HCT 07/13/2023 06:08:00 29.0 Below low normal 36.0-45.2 (%) Final MCV 07/13/2023 06:08:00 94.2 81.5-97.5 (fL) Final MCH 07/13/2023 06:08:00 29.9 27.0-34.0 (pg) Final MCHC 07/13/2023 06:08:00 31.7 32.0-36.0 (g/dL) Final RDW 07/13/2023 06:08:00 13.0 11.5-15.5 (%) Final Platelets 07/13/2023 06:08:00 124 Below low normal 140-400 (K/uL) Final MPV 07/13/2023 06:08:00 10.7 6.6-11.1 (fL) Final Nucleated erythrocytes/100 leukocytes [Ratio] in Blood by Automated count 07/13/2023 06:08:00 0 <=0 (/100 WBCs) Final Performing Location
--- OUTSIDE RECORDS SUMMARY | 2023-07-18 02:28 | External Medical Summary ---
Author Name Unknown Address Unknown Organization : Laboratory Report Ordering Provider Test Date Status ARIEL SHEFFIELD 07/12/2023 11:51:52 Final Observation Date Value Abnormality Reference (Units ) Status Glucose Point of Care 07/12/2023 11:51:52 88 70-120 (mg/dL) Final Performing Location
--- OUTSIDE RECORDS SUMMARY | 2023-07-18 02:28 | External Medical Summary ---
Author Name Unknown Address Unknown Organization K1G:LAB[facility]ATORY [facility] - [address] [place] [id number] Laboratory Report Ordering Provider Test Date Status IKER GONZALES 07/11/2023 08:24:06 Final Observation Date Value Abnormality Reference (Units ) Status Lactic Acid, Whole Blood 07/11/2023 08:24:06 1.4 0.4-2.0 (mmol/L) Final Performing Location [facility]ATORY [facility] - [address] [place] [id number]
--- OUTSIDE RECORDS SUMMARY | 2023-07-18 02:28 | External Medical Summary ---
Author Name Unknown Address Unknown Organization : Laboratory Report Ordering Provider Test Date Status CESAR CHADWICK 07/13/2023 21:11:52 Final Observation Date Value Abnormality Reference (Units ) Status Glucose Point of Care 07/13/2023 21:11:52 194 Above high normal 70-120 (mg/dL) Final Performing Location
--- OUTSIDE RECORDS SUMMARY | 2023-07-18 02:28 | External Medical Summary ---
Author Name Unknown Address Unknown Organization K1G:LAB[facility]ATORY [facility] - [address] [facility] [phone] Laboratory Report Ordering Provider Test Date Status IKER GONZALES 07/11/2023 08:40:39 Final Observation Date Value Abnormality Reference (Units) Status Color of Urine by Auto 07/11/2023 08:40:39 Light Yellow Light Yellow, Yellow, Dark Yellow Final Clarity, Urine 07/11/2023 08:40:39 Slightly Cloudy Abnormal Clear Final Glucose [Mass/volume] in Urine by Automated test strip 07/11/2023 08:40:39 Negative Negative (mg/dL) Final Bilirubin.total [Presence] in Urine by Automated test strip 07/11/2023 08:40:39 Negative Negative Final Ketones [Mass/volume] in Urine by Automated test strip 07/11/2023 08:40:39 80 Abnormal Negative (mg/dL) Final Specific gravity, Urine 07/11/2023 08:40:39 1.015 1.003-1.030 Final Hemoglobin [Presence] in Urine by Automated test strip 07/11/2023 08:40:39 Negative Negative Final pH, Urine 07/11/2023 08:40:39 8.5 Above high normal 5.0-7.5 (Units) Final Protein [Mass/volume] in Urine by Automated test strip 07/11/2023 08:40:39 30 Abnormal Negative (mg/dL) Final Urobilinogen [Mass/volume] in Urine by Automated test strip 07/11/2023 08:40:39 0.2 0.2, 1.0 (mg/dL) Final Nitrite [Presence] in Urine by Automated test strip 07/11/2023 08:40:39 Negative Negative Final Leukocyte esterase [Presence] in Urine by Automated test strip 07/11/2023 08:40:39 Negative Negative Final Performing Location LAB[facility]ATORY [facility] - [address] [facility] [phone]
--- OUTSIDE RECORDS SUMMARY | 2023-07-18 02:29 | External Medical Summary ---
Author Name Unknown Address Unknown Organization K01:[facility]ATORY [facility] - [address] [place] [address] Laboratory Report Ordering Provider Test Date Status SIGIFREDOWILLIAN 02/20/2023 14:41:46 Final Observation Date Value Abnormality Reference (Units ) Status TSH 02/20/2023 14:41:46 2.77 0.27-4.20 (uIU/mL) Final Performing Location [facility] - [address] [place] [address]
--- OUTSIDE RECORDS SUMMARY | 2023-07-18 02:29 | External Medical Summary | Summary of Care ---
Author Name Unknown Organization [facility] Address [address] [place] [address] Phone [phone] Care Team Providers Care It Sales Representative Name Role Phone Jacquelyn Mckinney MD Primary Care Provider [phone] Encounter Details Date Type Department Care Team (Late st Contact Info) Description 05/23/2023 Population Health External Data Unspecified Department Allergies No known active allergiesdocumented as of this encounter (statuses as of 05/23/2023) Medications Medication Sig Dispensed Refills Start Date [...] Aspart 100 UNIT/ML Injection Solution (NovoLOG) Inject under the skin 8 Units 2 times a day in the morning and at noon . 0 Active Melatonin 10 MG Oral Capsule Take by mouth 10 mg before bedtime. 0 Active clonazePAM 0.5 MG Oral Tablet (KlonoPIN) Take by mouth 0.5 mg in the morning AND 0.5 mg at noon AND 0.5 mg before bedtime. 0 Active Buprenorphine HCl 8 MG Sublingual Tablet Sublingual (Subutex) Place under the tongue 8 mg in the morning. 2 1/2 tablet daily . 0 Active Insulin Aspart 100 UNIT/ML Injection Solution (NovoLOG) Inject under the skin 10 Units daily with dinner . 0 Active Venlafaxine HCl ER 75 MG Oral Capsule Extended Release 24 Hour (Effexor XR) Take by mouth 112.5 mg in the morning. 0 Active Insulin Glargine 100 UNIT/ML Subcutaneous Solution (Lantus) Inject under the skin 22 Units before bedtime. 1 Each 12 04/19/2022 Active documented as of this encounter (statuses as of 05/23/2023) Active Problems Problem Noted Date Diagnosed Date [...] as of this encounter (statuses as of 05/23/2023) Resolved Problems Problem Noted Date Diagnosed Date Resolved Date Chest pain 04/17/2022 04/19/2022 Abdominal pain 04/17/2022 04/19/2022 documented as of this encounter (statuses as of 05/23/2023) Social History Tobacco Use Types Packs/Day Years Used Date Smoking Tobacco: Never Smokeless Tobacco: Never Alcohol Use Standard Drinks/Week Comments Yes 0 (1 standard drink = 0.6 oz pur e alcohol) rare Sex and Gender Information Value Date Recorded [...] (15 years old or older) No 04/17/20 22 Cognitive Status Response Date of Assessm ent Because of a physical, menta l, or emotional condition, do you have serious difficulty concentrating, remembering, or making decisions? (5 years old or older) No 04/17/2022 documented as of this encounter Plan of Treatment Health Maintenance Due Date Last Done Comments [...] 02/20/2023, 03/03, 11/15/2020, Additional history exists GFR 02/21/2024 02/20/2023, 04/02, 04/18/2022, Additional history exists Lipid Panel 03/21/2027 03/21/2022, [...] the patient have Health Care Power of [place]? No Care Teams It Sales Representative Relationship Specialty Start Date End Date Jacquelyn Mckinney MD [address] [place] [phone] PCP - General Family Medicine 04/17/22 documented as of this encounter
--- OUTSIDE RECORDS SUMMARY | 2023-07-18 02:29 | External Medical Summary | Summary of Care ---
Author Name Unknown Organization [facility] Address [address] [place] [address] Phone [phone] Care Team Providers Care Insurance Claims Clerk Name Role Phone Jacquelyn Mckinney MD Primary Care Provider Reason for Visit * Reason Onset Date Comments Diabetes Management 05/26/2023 TRIAGE 05/26/2023 Encounter Details Date Type Department Care Team (Late st Contact Info) Description 05/26/2023 Telephone Pharmacy Call Center [address] [place] [address] [facility] [address] [place] [address] Diabetes Management; TRIAGE Allergies No known active allergiesdocumented as of this encounter (statuses as of 05/26/2023) Medications Medication Sig Dispensed Refills Start Date [...] as of this encounter (statuses as of 05/26/2023) Active Problems Problem Noted Date Diagnosed Date [...] as of this encounter (statuses as of 05/26/2023) Resolved Problems Problem Noted Date Diagnosed Date Resolved Date Chest pain 04/17/2022 04/19/2022 Abdominal pain 04/17/2022 04/19/2022 documented as of this encounter (statuses as of 05/26/2023) Social History Tobacco Use Types Packs/Day Years [...] No 04/17/2022 documented as of this encounter Miscellaneous Notes * Telephone Encounter - Sophy Moffett RPh - 05/26/2023 2:27 PM EST [facility] Non-Clinical [facility] THIS NOTE SERVES FOR TRIAGING PURPOSES ONLY AND IS NOT A PATIENT CONTACT. PATIENT MAY BE CONTACTED FOLLOWING MY ASSESSMENT. Patient was identified to be a candidate for the Non-CE telephonic program based on the following criteria: Not high cost / A1c >= 9.0/ PDC >= 80% Patient managed by [facility] provider? No; Pertinent Diabetes Info in Care Everywhere unable to access due to requiring patient authorization Last A1C: 9.4% (Result Date: 02/20/2023) Diabetes Diagnosis: Type 1 After chart review the following opportunities were identified: Mail Order Invite ( Call and invite) and Obtain Updated A1c Action to be taken by veterinary surgery technician: Please contact and warm transfer to [facility] if patient is agreeable Needs Language Line: No Sophy Moffett RPh Clinical Pharmacist 05/26/2023, 2:28 PM documented in this encounter Plan of Treatment Health Maintenance [...] the patient have Health Care Power of Lockstitch Front Maker? No Care Teams Insurance Claims Clerk Relationship Specialty Start Date End Date Jacquelyn Mckinney MD [address] [place] [id number] PCP - General Family Medicine 04/17/22 documented as of this encounter
--- OUTSIDE RECORDS SUMMARY | 2023-07-18 02:29 | External Medical Summary ---
Author Name Unknown Address Unknown Organization K1G:LAB[facility]ATORY [facility] - [address] [place] [phone] Laboratory Report Ordering Provider Test Date Status IKER GONZALES 07/11/2023 08:24:46 Final Observation Date Value Abnormality Reference (Units ) Status Troponin T 07/11/2023 08:24:46 <6 <=14 (ng/ L) Final Performing Location [facility] - [address] [place] [id number]
--- OUTSIDE RECORDS SUMMARY | 2023-07-18 02:29 | External Medical Summary ---
Author Name Unknown Address Unknown Organization K01:LABORATORY [facility] - [address] [place] [address] Laboratory Report Ordering Provider Test Date Status WILLIAN MEI 02/20/2023 14:41:46 Final Observation Date Value Abnormality Reference (Units ) Status HbA1C 02/20/2023 14:41:46 9.4 Above high normal 4. 0-5.6 (%) Final The use of HbA1c to monitor glycemic status is based on normal hemoglobin and HbA composition. This test should not be used in patients with abnormal hemoglobin that affects the half life of the red blood cell or the in vivo glycation rates. Glucose, estimated average 02/20/2023 14:41:46 223 Above high normal <126 (mg/dL) Venkatesh mora Performing Location LABORATORY [facility] - [address] [place] [address]
--- OUTSIDE RECORDS SUMMARY | 2023-07-18 02:29 | External Medical Summary | Summary of Care ---
Author Name Unknown Organization [facility] Address [address] [place] [address] Phone [phone] Care Team Providers Care Equipment Or Machinery Cleaner Name Role Phone Jacquelyn Mckinney MD Primary Care Provider [phone] Reason for Visit * Reason Comments Outpatient Testing Encounter Details Date Type Department Care Team Description 02/20/2023 Laboratory [facility], [address] [phone] [place], [facility] [address] [place] [phone] DM hyperosmolar coma, type 1 (HCC)* Allergies No known active allergiesdocumented as of this encounter (statuses as of 02/20/2023) Medications Medication Sig Dispensed Refills Start Date [...] as of this encounter (statuses as of 02/20/2023) Active Problems Problem Noted Date Poorly controlled diabetes mellitus 04/02 Diabetic ketoacidosis withou t coma associated with type 2 diabetes mellitus 04/17/2022 Leukocytosis 04/17/2022 UTI (urinary tract infection) 04/17/2022 Acute confusion 04/17/2022 CHOLELITHIASIS NOS 02/16/2004 Type 2 diabetes mellitus with hemoglobin A1c goal of less than 7.0% 02/04/2002 Overview: ICD-10 update of inactive term CERVICAL DISC DISPLACMNT 01/04/2002 Major depressive disorder 01/29/2001 Overview: ICD-10 update of inactive term INITIATE CONTRACEPT NEC 01/29/2001 Vaginitis 01/29/2001 Genital herpes Overview: ICD-10 update of inactive term Hemorrhoids documented as of this encounter (statuses as of 02/20/2023) Resolved Problems Problem Noted Date Resolved Date Chest pain 04/17/2022 04/19/2022 Abdominal pain 04/17/2022 04/19/2022 documented as of this encounter (statuses as of 02/20/2023) Social History Tobacco Use Types Packs/Day Years Used Date Smoking Tobacco: Never Smokeless Tobacco: Never Alcohol Use Standard Drinks/Week Comments Yes 0 (1 standard drink = 0.6 oz pur e alcohol) rare Sex Assigned at Date Recorded Not on file Job Start Date Occupation [...] or making decisions? (5 years old or older No 04/17/2022 documented as of this encounter Plan of Treatment Pending Results Name Type Priority Associated Diagnoses Date /Time COMPREHENSIVE METABOLIC PANEL Lab STAT DM hyperosmolar coma, type 1 (HCC) 02/20/2023 2:41 PM EDT HEMOGLOBIN A1C Lab Routine DM hyperosmolar coma, type 1 (HCC) 02/20/2023 2:41 PM EDT TSH Lab Routine DM hyperosmolar coma, type 1 (HCC) 02/20/2023 2:41 PM EDT Health Maintenance Due Date Last Done Comments DXA Scan 1961 COVID-19 Vaccine (#1) 02/04/1962 Pneumococcal Vaccine: Pediatrics (0 to 5 Years) and At-Risk Patients (6 to 64 Years) (1 - PCV) 1967 Depression Screening, Annual for Pts 12 and Over 1973 DIABETES-EYE EXAM 1979 DIABETES-FOOT EXAM 1979 Hepatitis C Screening 1979 DTaP,Tdap,and Td Vaccines (1 - Tdap) 1980 HPV/Co-Test 1991 Mammogram 2001 Cervical Cancer Screening 03/10/2006 Pap Smear 03/10/2006 03/10/2003, 04/08/2001, 02/01/2001 Cologuard 2006 Colonoscopy 2006 Colorectal Cancer Screening 2006 Fecal Occult Blood Test 2006 Sigmoidoscopy 2006 Zoster Vaccines (1 of 2) 2011 HbA1c 09/18/2022 03/21/2022, 10/31, 07/31/2020, Additional history exists Influenza Vaccine (FLU shot) (#1) 2023 04/04/2018, 04/11/2011 Albumin/Creatinine Ratio 03/21/2023 022, 05/09/2003, 02/18/2002, Additional history exists GFR 04/19/2023 04/19/2022, 04/02, 04/18/2022, Additional history exists Lipid Panel 03/21/2027 03/21/2022, 02/02, 05/09/2003, Additional history exists HIV Screening Completed 03/17/2021 GARDASIL-HPV IMMUNIZATION SERIES Aged Out No longer eligible based on patient's age to complete this topic Hepatitis B Aged Out No longer eligi ble based on patient's age to complete this topic MENINGOCOCCAL (MENACTRA/MENVEO) Aged Out No longer eligible based on patient's age to complete this topic documented as of this encounter Medical Devices Not on filedocumented as of this encounter Visit Diagnoses Diagnosis DM hyperosmolar coma, type 1 (HCC)- Primary Type I (juvenile type) diabetes mellitus with hyperosmolarity, not stated as uncontrolled documented in this encounter Advance Directives Latest [...] the patient have Health Care Power of Roller Checker? No Care Teams Equipment Or Machinery Cleaner Relationship Specialty Start Date End Date Jacquelyn Mckinney MD [address] [place] [phone] PCP - General Family Medicine 04/17/22 documented as of this encounter
--- OUTSIDE RECORDS SUMMARY | 2023-07-18 02:29 | External Medical Summary ---
Author Name Unknown Address Unknown Organization K1G:LABORATORY [facility] - [address] [place] [phone] Laboratory Report Ordering Provider Test Date Status IKER GONZALES 07/11/2023 08:24:06 Final Observation Date Value Abnormality Reference (Units ) Status Lipase 07/11/2023 08:24:06 7 Below low normal 13- 60 (U/L) Final Performing Location LABORATORY [facility] - [facility] [phone]
--- OUTSIDE RECORDS SUMMARY | 2023-07-18 02:29 | External Medical Summary | Summary of Care ---
Author Name Unknown Organization [facility] Address [address] [place] [address] Phone [phone] Care Team Providers Care Voice Network Engineer Name Role Phone Jacquelyn Mckinney MD Primary Care Provider [phone] Reason for Visit * Reason Onset Date Comments Diabetes Management 05/26/2023 TRIAGE 05/26/2023 Encounter Details Date Type Department Care Team (Late st Contact Info) Description 05/26/2023 Telephone Pharmacy Call Center [address] [place] [address] [facility] [address] [place] [address] Diabetes Management; TRIAGE Allergies No known active allergiesdocumented as of this encounter (statuses as of 06/16/2023) Medications Medication Sig Dispensed Refills Start Date [...] as of this encounter (statuses as of 06/16/2023) Active Problems Problem Noted Date Diagnosed Date [...] as of this encounter (statuses as of 06/16/2023) Resolved Problems Problem Noted Date Diagnosed Date Resolved Date Chest pain 04/17/2022 04/19/2022 Abdominal pain 04/17/2022 04/19/2022 documented as of this encounter (statuses as of 06/16/2023) Social History Tobacco Use Types Packs/Day Years [...] Moffett RPh - 05/26/2023 2:27 PM EST [facility] Non-Clinical [place] Diabetes Initiative THIS NOTE SERVES FOR TRIAGING PURPOSES ONLY AND IS NOT A PATIENT CONTACT. PATIENT MAY BE CONTACTED FOLLOWING MY ASSESSMENT. Patient was identified to be a candidate for the Non-CE telephonic program based on the following criteria: Not high cost / A1c >= 9.0/ PDC >= 80% Patient managed by [facility] provider? No; Pertinent Diabetes Info in Care Everywhere unable to access due to requiring patient authorization Last A1C: 9.4% (Result Date: 02/20/2023) Diabetes Diagnosis: Type 1 After chart review the following opportunities were identified: Mail Order Invite ( Call and invite) and Obtain Updated A1c Action to be taken by digital cartographic technician: Please contact and warm transfer to [facility] if patient is agreeable Needs Language [...] the patient have Health Care Power of Damage Assessor? No Care Teams Voice Network Engineer Relationship Specialty Start Date End Date Jacquelyn Mckinney MD [address] [place] [phone] PCP - General Family Medicine 04/17/22 documented as of this encounter
--- OUTSIDE RECORDS SUMMARY | 2023-07-18 02:29 | External Medical Summary | Summary of Care ---
Author Name Unknown Organization [facility] Address [address] [place] [address] Phone [phone] Care Team Providers Care Bolt Sawyer Name Role Phone Jacquelyn Mckinney MD Primary Care Provider [phone] Reason for Visit * Reason Comments Outpatient Testing Encounter Details Date Type Department Care Team Description 02/20/2023 Laboratory [facility], [address] [phone] [place] [address] [place] [address] [id number] DM hyperosmolar coma, type 1 (HCC)* Allergies No known active allergiesdocumented as of this encounter (statuses as of 02/21/2023) Medications Medication Sig Dispensed Refills Start Date [...] as of this encounter (statuses as of 02/21/2023) Active Problems Problem Noted Date Poorly controlled [...] as of this encounter (statuses as of 02/21/2023) Resolved Problems Problem Noted Date Resolved Date Chest pain 04/17/2022 04/19/2022 Abdominal pain 04/17/2022 04/19/2022 documented as of this encounter (statuses as of 02/21/2023) Social History Tobacco Use Types Packs/Day Years [...] 2006 Zoster Vaccines (1 of 2) 2011 Influenza Vaccine (FLU shot) (#1) 2023 04/04/2018, [...] Procedure Name Priority Date/Time Associated Diagnosis Comments HEMOGLOBIN A1C Routine 02/20/2023 2:41 PM EDT DM hyperosmolar coma, type 1 (HCC) COMPREHENSIVE METABOLIC PANEL STAT 02/20/2023 2:41 PM EDT DM hyperosmolar coma, type 1 (HCC) TSH Routine 02/20/2023 2:41 PM EDT DM hyperosmolar coma, type 1 (HCC) documented in this encounter Results * TSH (02/20/2023 2:41 PM EDT) TSH 2.77 0.27 - 4.20 uIU/mL 02/21/2023 2:00 AM EDT [facility] [place] Venous blood specimen / Unknown Venipuncture / Unknown 02/20/2023 2:41 PM EDT 02/20/2023 2:41 PM EDT Jacquelyn Mckinney MD LAB BLOOD ORDERABLES [facility] [address] [place] [address] * (ABNORMAL) HEMOGLOBIN A1C (02/20/2023 2:41 PM EDT) Hemoglobin A1C 9.4(H) 4.0 - 5.6 % 02/21/2023 1:59 AM EDT [facility] Comment:The use of HbA1c to monitor glycemic status is based on normal hemoglobin and HbA composition. This test should not be used in patients with abnormal hemoglobin that affects the half life of the red blood cell or the in vivo glycation rates. Estimated Average Glucose 223(H) <126 mg/dL 02/21/2023 1:59 AM EDT [facility] [place] Venous blood specimen / Unknown Venipuncture / Unknown 02/20/2023 2:41 PM EDT 02/20/2023 2:41 PM EDT Jacquelyn Mckinney MD LAB BLOOD ORDERABLES [facility] [address] [place] [address] * (ABNORMAL) COMPREHENSIVE METABOLIC PANEL (02/20/2023 2:41 PM EDT) BUN 17 6 - 20 mg/dL 02/21/2023 12:08 AM EDT [facility] Creatinine 0.8 0.5 - 1.0 mg/dL 02/21/2023 12:08 AM EDT [facility] Estimated Glomerular Filtration Rate >90 >=60 mL/min 02/21/2023 12:08 AM EDT [facility] Comment:eGFR is calculated b ased on the CKD-EPI 2020 equation Sodium 140 135 - 146 mmol/L 02/21/2023 12:08 AM EDT [facility] Potassium 3.9 3.5 - 5.1 mmol/L 02/21/2023 12:08 AM EDT [facility] Chloride 101 98 - 107 mmol/L 02/21/2023 12:08 AM EDT [facility] CO2 24 22 - 32 mmol/L 02/21/2023 12:08 AM EDT [facility] Anion Gap 15 7 - 15 mmol/L 02/21/2023 12:08 AM EDT [facility] Glucose 215(H) 70 - 120 mg/dL 02/21/2023 12:08 AM EDT [facility] Albumin 4.6 3.8 - 5.0 g/dL 02/21/2023 12:08 AM EDT [facility] AST 20 10 - 35 U/L 02/21/2023 12:08 AM EDT [facility] Alkaline Phosphatase 81 35 - 130 U/L 02/21/2023 12:08 AM EDT [facility] Bilirubin, Total 0.5 <=1.2 mg/dL 02/21/2023 12:08 AM EDT [facility] Calcium 9.4 8.4 - 10.2 mg/dL 02/21/2023 12:08 AM EDT [facility] Protein 7.3 6.0 - 8.3 g/dL 02/21/2023 12:08 AM EDT [facility] ALT 19 10 - 35 U/L 02/21/2023 12:08 AM EDT [facility] Blood Venous blood specimen / Unknown Venipuncture / Unknown 02/20/2023 2:41 PM EDT 02/20/2023 2:41 PM EDT Jacquelyn Mckinney MD LAB BLOOD ORDERABLES [facility] [address] [place] [address] documented in this encounter Visit Diagnoses Diagnosis DM hyperosmolar [...] the patient have Health Care Power of Bilingual Teacher? No Care Teams Bolt Sawyer Relationship Specialty Start Date End Date Jacquelyn Mckinney MD [address] [place] [id number] PCP - General Family Medicine 04/17/22 documented as of this encounter
[2023-07-18] MEDS: ACETAMINOPHEN 325 MG TAB PO PRN (06:05)
[2023-07-18 08:32] LABS: Albumin Globulin Ratio 1.1 (0.9-2); Albumin Level 3.2 gm/dl (3.4-5.0); BUN Creatinine Ratio 19.1 (10-20); Bilirubin,Total 0.4 mg/dl (0.2-1.0); Calcium 8.5 mg/dl (8.6-10.3); Creatinine Clr Calc Pharmacy 122.2 ml/min; Est GFR (African American) 123.6 ml/min; Est GFR (Non-African American) 106.6 ml/min; Total Protein 6.2 gm/dl (6.0-8.3)
[2023-07-18 09:03] LABS: Estimated Average Glucose 177 mg/dl; Hemoglobin A1C 7.8 % (4.5-5.6)
[2023-07-18 09:13] LABS: Hematocrit (blood only) 30.8 % (37.0-47.0); Hemoglobin 10.2 g/dl (12.0-16.0); Mean Corpuscular Hemoglobin 30.2 pg (25.0-34.0); Mean Corpuscular Hgb Conc 33.1 g/dL (32.0-36.0); Mean Corpuscular Volume 91.1 fL (80.0-100.0); Mean Platelet Volume 10.1 fL (9.4-12.4); Platelet Count 270 K/uL (130-400); RDW Coefficient of Variation 12.5 % (11.5-14.5); RDW Standard Deviation 41.3 fL (36.4-46.3); Red Blood Count 3.38 M/uL (4.20-5.40); White Blood Count 6.48 K/ul (4.8-10.8)
[2023-07-18] MEDS: INSULIN ASPART PER UNIT CHARGE SC SCH ×4 (09:53→21:14)
[2023-07-18] MEDS: oxyCODONE HCL IR 5 MG TAB (IMMEDIATE RELEASE) PO PRN ×3 (09:54→22:43)
[2023-07-18] MEDS: tiZANidine HCL 4 MG TABLET PO SCH ×3 (09:55→21:12)
[2023-07-18] MEDS: clonazePAM 0.5 MG TAB PO PRN ×3 (09:55→22:43)
[2023-07-18] MEDS: buprenorphine HCL 8 MG SUBL SL SCH ×3 (09:58→21:14)
--- NOTE | 2023-07-18 12:50 | Surgery Progress Note ---
Date of Service July 18, 2023 Assessment & Plan (1) S/P cholecystectomy: (2) Liver laceration: Plan 62-year-old woman 5 days status post laparoscopic cholecystectomy for acute cholecystitis at [facility] presents with a liver laceration, grade 3. Her H/H dropped overnight to 10/30, however this is most likely delusional from the fluid she has received. She will need to have her labs tract every 6 hours. We will continue to observe. No surgical intervention required at this time. We will continue to follow. Admission and Anticipated Discharge Date Admission Date: July 17, 2023 Subjective Feeling somewhat better today. Less pain. No nausea or vomiting. Physical Exam Physical Exam: AFVSS NAD, A&O x 3 Abdomen: Soft, mild tenderness to palpation diffusely NELLIE drain with serous drainage Results & Data Vital Signs (Past 12 Hours) Vital Signs Temp Pulse Pulse Resp BP Pulse Ox O2 Del Method 07/18/23 10:49 37.0 C 76 16 147/77 H 95 Room Air 07/18/23 07:30 72 07/18/23 07:19 36.8 C 69 18 168/74 H 96 Room Air 07/18/23 04:00 36.6 C 68 18 144/74 H 94 Room Air Laboratory Results 07/18/23 07/18/23 07/18/23 Range/Units 12:05 07:54 05:44 WBC 6.48 (4.8-10.8) K/ul RBC 3.38 L (4.20-5.40) M/uL Hgb 10.2 L (12.0-16.0) g/dl Hct 30.8 L (37.0-47.0) % MCV 91.1 (80.0-100.0) fL MCH 30.2 (25.0-34.0) pg MCHC 33.1 (32.0-36.0) g/dL RDW Std Deviation 41.3 (36.4-46.3) fL RDW Coeff of Luciano 12.5 (11.5-14.5) % Plt Count 270 (130-400) K/uL MPV 10.1 (9.4-12.4) fL Sodium 140 (136-145) mmol/L Potassium 4.0 (3.5-5.1) mmol/L Chloride 107 (98-107) mmol/L Carbon Dioxide 28 (21-32) mmol/L Anion Gap 5 (3-11) BUN 9 (6-23) mg/dl Creatinine 0.47 L (0.6-1.2) mg/dl Est Cr Clr Drug Dosing 122.2 ml/min Est GFR ( Amer) 123.6 ml/min Est GFR (Non-Af Amer) 106.6 ml/min BUN/Creatinine Ratio 19.1 (10-20) Glucose 92 (70-99(Fasting)) mg/dl POC Glucose 131 H 88 (70-99) mg/dl Estimat Average Glucose 177 mg/dl Hemoglobin A1c 7.8 H (4.5-5.6) % Calcium 8.5 L (8.6-10.3) mg/dl Magnesium 2.0 (1.7-2.4) mg/dl Total Bilirubin 0.4 (0.2-1.0) mg/dl AST 13 (13-39) U/L ALT 16 (7-52) U/L Alkaline Phosphatase 78 (34-104) U/L Total Protein 6.2 (6.0-8.3) gm/dl Albumin 3.2 L (3.4-5.0) gm/dl Globulin 3.0 (2.5-4.0) gm/dl Albumin/Globulin Ratio 1.1 (0.9-2) Lipase (11-82) U/L 07/17/23 07/17/23 07/17/23 Range/Units 21:02 17:53 14:07 WBC (4.8-10.8) K/ul RBC (4.20-5.40) M/uL Hgb (12.0-16.0) g/dl Hct (37.0-47.0) % MCV (80.0-100.0) fL MCH (25.0-34.0) pg MCHC (32.0-36.0) g/dL RDW Std Deviation (36.4-46.3) fL RDW Coeff of Luciano (11.5-14.5) % Plt Count (130-400) K/uL MPV (9.4-12.4) fL Sodium (136-145) mmol/L Potassium (3.5-5.1) mmol/L Chloride (98-107) mmol/L Carbon Dioxide (21-32) mmol/L Anion Gap (3-11) BUN (6-23) mg/dl Creatinine (0.6-1.2) mg/dl Est Cr Clr Drug Dosing ml/min Est GFR ( Amer) ml/min Est GFR (Non-Af Amer) ml/min BUN/Creatinine Ratio (10-20) Glucose (70-99(Fasting)) mg/dl POC Glucose 104 H 209 H 218 H (70-99) mg/dl Estimat Average Glucose mg/dl Hemoglobin A1c (4.5-5.6) % Calcium (8.6-10.3) mg/dl Magnesium (1.7-2.4) mg/dl Total Bilirubin (0.2-1.0) mg/dl AST (13-39) U/L ALT (7-52) U/L Alkaline Phosphatase (34-104) U/L Total Protein (6.0-8.3) gm/dl Albumin (3.4-5.0) gm/dl Globulin (2.5-4.0) gm/dl Albumin/Globulin Ratio (0.9-2) Lipase (11-82) U/L 07/17/23 Range/Units 11:39 WBC (4.8-10.8) K/ul RBC (4.20-5.40) M/uL Hgb (12.0-16.0) g/dl Hct (37.0-47.0) % MCV (80.0-100.0) fL MCH (25.0-34.0) pg MCHC (32.0-36.0) g/dL RDW Std Deviation (36.4-46.3) fL RDW Coeff of Luciano (11.5-14.5) % Plt Count (130-400) K/uL MPV (9.4-12.4) fL Sodium (136-145) mmol/L Potassium (3.5-5.1) mmol/L Chloride (98-107) mmol/L Carbon Dioxide (21-32) mmol/L Anion Gap (3-11) BUN (6-23) mg/dl Creatinine (0.6-1.2) mg/dl Est Cr Clr Drug Dosing ml/min Est GFR ( Amer) ml/min Est GFR (Non-Af Amer) ml/min BUN/Creatinine Ratio (10-20) Glucose (70-99(Fasting)) mg/dl POC Glucose (70-99) mg/dl Estimat Average Glucose mg/dl Hemoglobin A1c (4.5-5.6) % Calcium (8.6-10.3) mg/dl Magnesium (1.7-2.4) mg/dl Total Bilirubin (0.2-1.0) mg/dl AST (13-39) U/L ALT (7-52) U/L Alkaline Phosphatase (34-104) U/L Total Protein (6.0-8.3) gm/dl Albumin (3.4-5.0) gm/dl Globulin (2.5-4.0) gm/dl Albumin/Globulin Ratio (0.9-2) Lipase < 3 L (11-82) U/L (2) Liver laceration Encounter type: initial encounter Qualified Code(s): S36.113A - Laceration of liver, unspecified degree, initial encounter
[2023-07-18] MEDS ORDERED: POLYETHYLENE (MIRALAX) 17 GM PACK PO PRN (13:23)
[2023-07-18] MEDS ORDERED: SODIUM CHLORIDE 0.9% 250 ML IV PRN (14:01)
--- NOTE | 2023-07-18 15:17 | Hospitalist Progress Note ---
Date of Service July 18, 2023 Assessment & Plan (1) Abdominal pain: (2) Liver laceration: Plan: Liver laceration during cholecystectomy, Likely a complication of care - S/p lap cholecystectomy on 07/12/23, she was treated with IV Zosyn during preoperative timing, likely liver laceration sustained during surgery, no falls, trauma or other injury since surgical procedure - CT abd/pelvis: Postoperative changes compatible with recent cholecystectomy with trace pneumoperitoneum. small amount of air and fluid within the elvin hepatis is likely an expected postoperative finding. No drainable postoperative fluid collection. 5 cm acute laceration (grade III injury) of the inferior right hepatic lobe with extension into the elvin hepatis. Trace adjacent hemorrhage tracks along the right pericolic gutter. No bowel obstruction. Moderate constipation. Bilateral nephrolithiasis. Left hydronephrosis with possible UPJ obstruction. -- Drop in hemoglobin likely dilutional secondary to IV fluids No obvious bleeding issues Monitor H&H and transfuse PRBCs as needed Appreciate surgery input Pain control Currently no surgical intervention required as per surgery Tolerating diet Constipation Likely due to pain medications Bowel regimen to prevent constipation Obstructive uropathy Left hydronephrosis Bilateral nephrolithiasis Bladder scan for retention Consider urology evaluation if needed (3) Hypokalemia: Plan: Replace and monitor (4) Opioid dependence on agonist therapy: Plan: - Patient is on buprenorphine 8 mg TID (5) DM II (diabetes mellitus, type II), controlled: Plan: HbA1c 7.8 Continue insulin while hospitalized Monitor BGs (6) MDD (major depressive disorder): Plan: Continue home medications (7) Anxiety: Plan: - Follow with a counselor every other week, does not have a psychiatrist Continue home medication DVT Px: Teds, SCDs CODE STATUS: Full code Admission and Anticipated Discharge Date Admission Date: July 17, 2023 Subjective Patient is seen and examined at bedside States having left lower quadrant abdominal pain Abdominal pain worse with deep breathing palpation No nausea, vomiting, chest pain, dyspnea Last bowel movement 2 days ago No other complaints Review of Systems Review of Systems: All systems reviewed & are unremarkable except as noted in Subjective Physical Exam Physical Exam: Physical Exam: Vitals signs as noted above General Appearance:Moderately built and nourished, no apparent distress Head: normocephalic, Atraumatic Eyes: normal inspection, EOMI Neck: supple, Trachea midline Respiratory/Chest: Normal breath sounds, CTA, No accessory muscle use Cardiovascular: S1, S2, No murmur Abdomen/GI:Soft, mild generalized tender, + laparoscopic scars, breanne,+drain, bowel sounds present Extremities/Musculoskeletal:normal inspection, no edema Neurologic/Psych:AAO, grossly no focal neurological deficits Skin: normal color, warm Results & Data Results & Data Vital Signs (Past 12 Hours) Vital Signs Temp Pulse Pulse Resp BP Pulse Ox O2 Del Method 07/18/23 15:10 36.8 C 65 18 136/67 95 Room Air 07/18/23 10:49 37.0 C 76 16 147/77 H 95 Room Air 07/18/23 07:30 72 07/18/23 07:19 36.8 C 69 18 168/74 H 96 Room Air 07/18/23 04:00 36.6 C 68 18 144/74 H 94 Room Air Laboratory Results Short CBC 07/18/23 Range/Units 05:44 WBC 6.48 (4.8-10.8) K/ul Hgb 10.2 L (12.0-16.0) g/dl Hct 30.8 L (37.0-47.0) % Plt Count 270 (130-400) K/uL BMP 07/18/23 05:44 Sodium 140 Potassium 4.0 Chloride 107 Carbon Dioxide 28 BUN 9 Creatinine 0.47 L Glucose 92 Calcium 8.5 L Liver Function 07/18/23 Range/Units 05:44 Total Bilirubin 0.4 (0.2-1.0) mg/dl AST 13 (13-39) U/L ALT 16 (7-52) U/L Alkaline Phosphatase 78 (34-104) U/L Albumin 3.2 L (3.4-5.0) gm/dl
[2023-07-18 19:42] LABS: Hematocrit (blood only) 30.6 % (37.0-47.0); Hemoglobin 10.5 g/dl (12.0-16.0)
[2023-07-18] MEDS: DOCUSATE SODIUM 100 MG CAP PO SCH (21:11)
[2023-07-18] MEDS: LANTUS PER UNIT CHARGE SQ SCH (21:16)
[2023-07-19 08:23] LABS: Hematocrit (blood only) 31.6 % (37.0-47.0); Hemoglobin 10.7 g/dl (12.0-16.0); Mean Corpuscular Hemoglobin 29.9 pg (25.0-34.0); Mean Corpuscular Hgb Conc 33.9 g/dL (32.0-36.0); Mean Corpuscular Volume 88.3 fL (80.0-100.0); Mean Platelet Volume 9.6 fL (9.4-12.4); Platelet Count 330 K/uL (130-400); RDW Coefficient of Variation 12.3 % (11.5-14.5); RDW Standard Deviation 39.5 fL (36.4-46.3); Red Blood Count 3.58 M/uL (4.20-5.40); White Blood Count 7.45 K/ul (4.8-10.8)
[2023-07-19] MEDS: DOCUSATE SODIUM 100 MG CAP PO SCH (08:36)
[2023-07-19] MEDS: buprenorphine HCL 8 MG SUBL SL SCH ×2 (08:36→14:21)
[2023-07-19] MEDS: clonazePAM 0.5 MG TAB PO PRN (08:36)
[2023-07-19] MEDS: tiZANidine HCL 4 MG TABLET PO SCH ×2 (08:36→14:21)
[2023-07-19 08:45] LABS: BUN Creatinine Ratio 21.4 (10-20); Calcium 8.7 mg/dl (8.6-10.3); Creatinine Clr Calc Pharmacy 102.6 ml/min; Est GFR (African American) 116.6 ml/min; Est GFR (Non-African American) 100.6 ml/min; Potassium 4.1 mmol/L (3.5-5.1)
[2023-07-19] MEDS: INSULIN ASPART PER UNIT CHARGE SC SCH ×2 (09:26→13:04)
--- NOTE | 2023-07-19 10:59 | Surgery Progress Note ---
Date of Service July 19, 2023 Assessment & Plan (1) S/P cholecystectomy: (2) Liver laceration: Plan 1 week status post lap cholecystectomy with liver laceration. Her hemoglobin and hematocrit are stable from yesterday to today. She is feeling significantly improved. She is tolerating diet. She may be discharged home. She will follow-up with her primary surgeon as an outpatient to remove the drain. Please call with any questions or concerns. Admission and Anticipated Discharge Date Admission Date: July 17, 2023 Subjective Feeling better today. Minimal pain. No nausea or vomiting. No dizziness. Tolerating diet. Physical Exam Physical Exam: AFVSS NAD, A&O x 3 Abdomen: Soft, mild tenderness to palpation diffusely NELLIE drain with serous drainage Results & Data Vital Signs (Past 12 Hours) Vital Signs Temp Pulse Pulse Resp BP Pulse Ox O2 Del Method 07/19/23 07:34 36.9 C 78 18 164/69 H 94 Room Air 07/19/23 05:53 69 07/19/23 03:06 36.8 C 69 18 124/67 93 Room Air 07/19/23 00:40 73 07/18/23 23:16 37.1 C 76 18 154/69 H 95 Room Air Laboratory Results 07/19/23 07/19/23 07/18/23 Range/Units 08:11 08:06 20:11 WBC 7.45 (4.8-10.8) K/ul RBC 3.58 L (4.20-5.40) M/uL Hgb 10.7 L (12.0-16.0) g/dl Hct 31.6 L (37.0-47.0) % MCV 88.3 (80.0-100.0) fL MCH 29.9 (25.0-34.0) pg MCHC 33.9 (32.0-36.0) g/dL RDW Std Deviation 39.5 (36.4-46.3) fL RDW Coeff of Luciano 12.3 (11.5-14.5) % Plt Count 330 (130-400) K/uL MPV 9.6 (9.4-12.4) fL Sodium 138 (136-145) mmol/L Potassium 4.1 (3.5-5.1) mmol/L Chloride 105 (98-107) mmol/L Carbon Dioxide 27 (21-32) mmol/L Anion Gap 6 (3-11) BUN 12 (6-23) mg/dl Creatinine 0.56 L (0.6-1.2) mg/dl Est Cr Clr Drug Dosing 102.6 ml/min Est GFR ( Amer) 116.6 ml/min Est GFR (Non-Af Amer) 100.6 ml/min BUN/Creatinine Ratio 21.4 H (10-20) Glucose 178 H (70-99(Fasting)) mg/dl POC Glucose 166 H 152 H (70-99) mg/dl Calcium 8.7 (8.6-10.3) mg/dl Magnesium 2.0 (1.7-2.4) mg/dl Blood Type Blood Type Recheck Antibody Screen Crossmatch 07/18/23 07/18/23 07/18/23 Range/Units 19:31 17:20 17:19 WBC (4.8-10.8) K/ul RBC (4.20-5.40) M/uL Hgb 10.5 L (12.0-16.0) g/dl Hct 30.6 L (37.0-47.0) % MCV (80.0-100.0) fL MCH (25.0-34.0) pg MCHC (32.0-36.0) g/dL RDW Std Deviation (36.4-46.3) fL RDW Coeff of Luciano (11.5-14.5) % Plt Count (130-400) K/uL MPV (9.4-12.4) fL Sodium (136-145) mmol/L Potassium (3.5-5.1) mmol/L Chloride (98-107) mmol/L Carbon Dioxide (21-32) mmol/L Anion Gap (3-11) BUN (6-23) mg/dl Creatinine (0.6-1.2) mg/dl Est Cr Clr Drug Dosing ml/min Est GFR ( Amer) ml/min Est GFR (Non-Af Amer) ml/min BUN/Creatinine Ratio (10-20) Glucose (70-99(Fasting)) mg/dl POC Glucose 80 69 L* (70-99) mg/dl Calcium (8.6-10.3) mg/dl Magnesium (1.7-2.4) mg/dl Blood Type A Negative Blood Type Recheck Antibody Screen NEGATIVE Crossmatch See Detail 07/18/23 07/18/23 Range/Units 12:05 05:44 WBC (4.8-10.8) K/ul RBC (4.20-5.40) M/uL Hgb (12.0-16.0) g/dl Hct (37.0-47.0) % MCV (80.0-100.0) fL MCH (25.0-34.0) pg MCHC (32.0-36.0) g/dL RDW Std Deviation (36.4-46.3) fL RDW Coeff of Luciano (11.5-14.5) % Plt Count (130-400) K/uL MPV (9.4-12.4) fL Sodium (136-145) mmol/L Potassium (3.5-5.1) mmol/L Chloride (98-107) mmol/L Carbon Dioxide (21-32) mmol/L Anion Gap (3-11) BUN (6-23) mg/dl Creatinine (0.6-1.2) mg/dl Est Cr Clr Drug Dosing ml/min Est GFR ( Amer) ml/min Est GFR (Non-Af Amer) ml/min BUN/Creatinine Ratio (10-20) Glucose (70-99(Fasting)) mg/dl POC Glucose 131 H (70-99) mg/dl Calcium (8.6-10.3) mg/dl Magnesium (1.7-2.4) mg/dl Blood Type Blood Type Recheck A Negative Antibody Screen Crossmatch (2) Liver laceration Encounter type: initial encounter Qualified Code(s): S36.113A - Laceration of liver, unspecified degree, initial encounter
--- NOTE | 2023-07-19 12:52 | Discharge Summary ---
Date of Service July 19, 2023 Admission HPI Per Admitting Provider This is a 62-year-old female with PMHx of opioid dependence on Subutex, anxiety/depression on clonazepam, DM type II [facility] of upper abdominal pain. She was found to have acute cholecystitis. Secondary to this she was transferred to [facility] and she underwent laparoscopic cholecystectomy on 07/12/[address] Medrano. Patient tolerated the procedure well. She was discharged from facility on 07/14/2023. Since discharge she has had increasing abdominal pain and was referred to our hospital by PCP. She was scheduled to have her NELLIE drain out next week. Here on CT abdomen acute imaging finds a 5 cm acute liver laceration with extension into the elvin hepatis. Patient reports that she is very unsatisfied with the care she received at the previous hospital in regards to being sent out of the hospital 2 days after surgery and having worsening pain. She lives at home by herself and has had difficulty with performing basic things. She has a NELLIE drain out of the RLQ which she has been emptying herself, and maintaining without difficulty. She states that there is serosanguineous fluid, minimal bloody outs. She is moving her bowels, last was 2 days ago, uses a laxative at home regularly. Patient has been tolerating p.o. intake and has been urinating without any issues. She denies any fevers, chills or sweats. Social Hx: Patient has been on Subutex for approximately 5 years, prior to that she was on chronic pain medication for pain associated with a fall she sustained backwards down a set of stairs and injured her shoulder. Patient denies any IV drug abuse, smoking, alcohol use or marijuana use. She has had 6 children, and one of her daughters due to suicide about 5 years ago. Admission Exam Per Admitting Provider General: awake, alert, no apparent distress, anxious at times Head: Normocephalic, atraumatic ENT: PERRL, EOMI, no pharyngeal exudate, mucous membranes moist Chest: Clear to auscultation, on room air, no adventitious breath sounds Cardiac: Regular rate and rhythm, no murmur, no JVD, normal peripheral pulses, good capillary refill Abdominal: NABS x 4 quadrants, soft, + NELLIE drain in RLQ with serosanguineous outs, laparoscopic incisions healing well, no surrounding erythema, nondistended, nontender to palpation, no rebound or guarding Extremities: Normal inspection, no peripheral edema or erythema, calfs nontender to palpation Psych: Anxious mood and tearful affect at times Neuro: AAO x 3, strength intact bilaterally and rated 5/5, no motor deficits, speech is clear, no peripheral sensory deficits Principal Diagnosis Liver laceration Discharge Exam Constitutional: WD/WN, vitals as above, NAD, sitting up in bed, pleasant, conversing easily Respiratory: normal respiratory effort, lungs clear to auscultation, no wheeze, rales, rhonchi. Normal insp/exp effort, no accessory muscle use Cardiovascular: RRR, no murmur, no edema Vessels: no JVD or carotid bruit Chest: normal inspection of chest Abdomen: Soft, nontender. Musculoskeletal: no cyanosis or clubbing, extremities motor strength 5/5 Skin: no rashes, warm and dry normal turgor Neurologic: PERRL, EOMI, accommodation nl, no face palsy, no dysarthria CN's II- XI intact bilaterally and moves all extremities Psychiatric: A+Ox3, euthymic affect Discharge Data Allergies Allergy/AdvReac Type Severity Reaction Status Date / Time No Known Allergies Allergy Unverified 07/17/23 14:12 Consultations 07/17/23 15:01 ED Decision to Admit Stat 07/17/23 15:22 Consult General Surgery Routine Ordered Studies 07/17/23 12:22 CT abd pelvis IV con only Stat Hospital Course (1) Abdominal pain: (2) Liver laceration: (3) Hypokalemia: (4) Opioid dependence on agonist therapy: (5) DM II (diabetes mellitus, type II), controlled: (6) MDD (major depressive disorder): (7) Anxiety: Patient is a 62-year-old female with PMHx of opioid dependence on Subutex, anxiety/depression on clonazepam, DM type II who presented to the hospital with abdominal pain. She had a recently undergone laparoscopic cholecystectomy on 07/12/[address] Medrano. Patient still had surgical drain in place. CT abdomen and pelvis admission: Postoperative changes compatible with recent cholecystectomy with trace pneumoperitoneum. small amount of air and fluid within the elvin hepatis is likely an expected postoperative finding. No drainable postoperative fluid collection. 5 cm acute laceration (grade III injury) of the inferior right hepatic lobe with extension into the elvin hepatis. Trace adjacent hemorrhage tracks along the right pericolic gutter. No bowel obstruction. Moderate constipation. Bilateral nephrolithiasis. Left hydronephrosis with possible UPJ obstruction. Her hemoglobin on admission was 12.0; down trended to 10 and is stabilized. Surgery was consulted for comanagement. Patient was observed over the course of the hospitalization. Her abdominal pain improved and patient was tolerating regular diet at discharge. Surgery recommended that patient can discharge home and follow-up with her primary surgeon as outpatient to remove the drain. Please note the above document was generated using voice recognition software. It may contain grammatical, syntax or spelling errors. Any formal questions or concerns about the content, text or information contained within the body of this dictation should be directly addressed to the provider for clarification Total Time Total Time Spent Total Time Spent (In Minutes): 35 Total Time Includes: Examination of the Patient, Discharge Planning, Medication Reconciliation, Communication With Other Providers and Other Discharge Plan Discharge Items Reason For Visit: LIVER LACERATION Discharge Diagnosis: Liver laceration History of cholecystectomy on July 12, 2023 Condition on Discharge: Fair Activity: Resume your previous activity Non-emergency contact: Primary Care Provider Call non-emergency contact if: you have any medication questions and your symptoms worsen Follow-up/Referrals: Jacquelyn Mckinney MD [Primary Care Provider] - 08/01/23 9:20 am (With Dr Rivas) Aniket Medrano Jr, MD [Outside Practitioners] - (Date & Time 07/21/2023 9:00 AM Provider Aniket Medrano MD Department General Surgery, [facility] ) Diet: Regular Addtl Attending Provider Instructions: You were admitted to the hospital due to abdominal pain. The CT abdomen and pelvis showed liver laceration. You are prescribed oxycodone to be taken as needed daily for pain control. You can take [id number] Tylenol as well. An appointment has been scheduled with your primary care doctor for follow-up. Please follow-up with your surgeon as scheduled to remove the drain. Pending Studies at Discharge: No Stand-Alone Forms: [employer], Smoking Cessation Medications and DC Order Prescriptions: New oxycodone 5 mg Tablet 5 mg PO DAILY PRN (Reason: pain) Qty: 5 0RF Continued tizanidine 2 mg tablet 2 mg PO TID ibuprofen 800 mg tablet 800 mg PO TID PRN (Reason: Pain) buprenorphine HCl 8 mg tablet, sublingual 8 mg SUBLINGUAL TID insulin aspart U-100 100 unit/mL (3 mL) insulin pen 8 unit SUBCUT TID Rx Instructions: Inject 8 units under the skin in the morning, 8 units at lunch and 10 units at supper insulin glargine 100 unit/mL (3 mL) insulin pen 20 unit SUBCUT HS clonazepam 0.5 mg tablet 0.5 mg PO TID PRN (Reason: Anxiety) Peter/Other Patient Handouts: Managing Type 2 Diabetes Admission Data Admit Date/Time: 07/17/23 15:22 Attending Provider: Melvin Hernadez Admit Provider: Kumar Bautista Primary Care Provider: Jacquelyn Mckinney Other Providers: John Armas; Kumar Bautista
== END 2023-07-19 15:36 | disposition home or self-care (01) | DRG 920 ==
LOC: ED 11:09 → EDINP 15:22 → SUATTDRO 15:22 → 2N 21:26